=== PATIENT | female | born 1935 | race Caucasian/White ===

== ENCOUNTER 2017-08-23 09:45 | Outpatient (CLI) | payer MEDICARE ==
--- NOTE | 2017-08-23 12:58 | MRI ---
MRI OF THE LUMBAR SPINE WITHOUT CONTRAST: INDICATION: An 82-year-old female with an intervertebral disk disorder and radiculopathy. The patient is having chronic low back pain but with worsening left-sided radiculopathy. Pain radiates to the level of the left knee and foot. TECHNIQUE: Multiplanar, multisequence MR images were obtained of the lumbar spine without IV contrast. No radio graphic or MR comparisons are available. FINDINGS: There is prominent dextroscoliosis of the lumbar spine centered at L2. There is a prominent bony hem angioma within the L1 vertebral level. The conus is seen to terminate at approximately T12-L1. There is loss of the normal disk space and height at all lumbar intervertebral levels. The visualized retroperitoneum and paravertebral soft tissues appear within normal limits. At the L5-S1 level, there is severe right and moderate left facet joint degenerative change. There i s a broad-based disk bulge. There is no appreciable central canal or neural foraminal narrowing. At L4-5, there is an asymmetric to the right disk-osteophyte complex. The disk-osteophyte complex in addition to the facet osteoarthropathy and loss of disk space height at L4-5 induces severe right ne ural foraminal narrowing. At L3-4, there is a broad-based disk bulge with a superimposed central protrusion, ligamentum flavum hypertrophy, and facet hypertrophy inducing mild central canal narrowing. The broad-based disk bulge in addition to the facet hypertrophy induces severe left and mild right neural foraminal narrowing. At L2-3, there is an asymmetric to the left disk-osteophyte complex with facet hypertrophy and ligame ntum flavum hypertrophy present. Constellation of findings induces severe left and mild right neural foraminal narrowing. At L1-2, there is a disk-osteophyte complex that is asymmetric to the left which, in addition to the facet hypertrophy, induces severe left neural foraminal narrowing. At T12-L1, there is an asymmetric to the left disk-osteophyte complex inducing moderate left and mild right neural foraminal narrowing. IMPRESSION: 1. Severe left neural foraminal narrowing seen at L3-4, L2-3, and L1-2. 2. Severe right neural foraminal narrowing seen at L4-5. 3. Mild central canal narrowing at L4-5 and L3-4. POS: MERCEDEZ
== END 2017-08-23 09:46 | disposition home or self-care (01) ==
LOC: SCSMRI 09:45
PROVIDERS: ATTEND Specialist
DX: M51.16 Intervertebral disc disorders with radiculopathy, lumbar region (principal); M48.061 Spinal stenosis, lumbar region without neurogenic claudication
CPT/HCPCS: 72148

== ENCOUNTER 2018-05-23 09:53 | Outpatient (CLI) | payer MEDICARE | END 2018-05-23 09:54 | disposition home or self-care (01) | LOC: BICMAMMO 09:53 | PROVIDERS: ATTEND Family Medicine | DX: Z08 Encounter for follow-up examination after completed treatment for malignant neoplasm (principal); R92.1 Mammographic calcification found on diagnostic imaging of breast; Z85.3 Personal history of malignant neoplasm of breast | CPT/HCPCS: 77066; G0279 ==

== ENCOUNTER 2018-09-13 10:14 | Outpatient (CLI) | payer MEDICARE ==
--- NOTE | 2018-09-13 12:03 | RAD ---
LEFT HIP TWO VIEWS: History: Left hip pain. FINDINGS: Mild degenerative change with spurring from the femoral head. Femoral head contour is normally mainta ined. No fracture or acute abnormality. There is a rounded calcification overlying the pelvis consistent with a calcified fibroid uterus. IMPRESSION: Mild degenerative changes of the left hip. Small osteophytes from the femoral head noted. POS: BRIAN
== END 2018-09-13 10:15 | disposition home or self-care (01) ==
LOC: SCSRAD 10:14
PROVIDERS: ATTEND Family Medicine
DX: M25.552 Pain in left hip (principal); M16.12 Unilateral primary osteoarthritis, left hip; M25.752 Osteophyte, left hip
CPT/HCPCS: 36415; 80053; 80061; 84439; 84443; 84481; 85025

== ENCOUNTER 2019-08-09 12:46 | Outpatient (CLI) | payer MEDICARE ==
--- NOTE | 2019-08-09 14:08 | MRI ---
MRI CERVICAL SPINE WITHOUT CONTRAST: HISTORY: Cervical radiculopathy. Numbness involving both hands. COMPARISON: None. FINDINGS: Straightening of normal cervical lordosis. Appropriate T1 marrow signal intensity of the cervical rosy tebrae. Vertebral body height is maintained. No fracture. Visualized brain parenchyma, cervicomedullary junction, cervical cord and the upper thoracic cord hav e a normal size and signal intensity. Spondylolisthesis: C3-C4: 3.5 mm of anterolisthesis. C4-C5: 1.9 mm of anterolisthesis. C5-C6: 2.9 mm anterolisthesis. C7-T1: 3 mm of anterolisthesis. Incomplete segmentation of C2 and C3. C2-C3: No significant central canal stenosis or significant neural foraminal narrowing. C3-C4: No significant central canal stenosis or significant neural foraminal narrowing. Bilateral fac et hypertrophy is noted. C4-C5: Central disc protrusion with mild central canal stenosis. No significant central canal stenosi s. Mild bilateral foraminal narrowing. There is left facet hypertrophy. C5-C6: Broad-based disc bulge abuts the thecal sac. Mild central canal stenosis. Right neural foramen is patent. Moderate left foraminal narrowing due to uncovertebral and facet hypertrophy. C6-C7: Broad-based disc bulge abuts the thecal sac. Mild central canal stenosis. Mild bilateral nneo inal narrowing due to uncovertebral hypertrophy. C7-T1: No significant central canal stenosis. Mild bilateral neural foraminal narrowing. IMPRESSION: 1. Spondylolisthesis as above. 2. 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 3. Varying degrees of central canal stenosis and neural foraminal narrowing as detailed above. Transcribed Date/Time: 08/09/2019 2:19 PM
== END 2019-08-09 12:47 | disposition home or self-care (01) ==
LOC: SCSMRI 12:46
PROVIDERS: ATTEND Specialist
DX: M54.12 Radiculopathy, cervical region (principal); M43.16 Spondylolisthesis, lumbar region; M48.061 Spinal stenosis, lumbar region without neurogenic claudication; M48.03 Spinal stenosis, cervicothoracic region; M43.13 Spondylolisthesis, cervicothoracic region
CPT/HCPCS: 72141

== ENCOUNTER 2020-02-10 08:00 | Outpatient (CLI) | payer MEDICARE ==
--- NOTE | 2020-02-10 15:13 | MRI ---
MRI LEFT HIP: Date: 02-10-2020 Provided Clinical History: Pain FINDINGS: Evaluation is limited by patient motion. There is extensive full thickness articular cartilage loss involving the femoral/acetabular joint, wi th osteophyte formation seen. There is loss of the normal sphericity of the femoral head with somewha t curvilinear signal alteration within the superomedial aspects of the femoral head, compatible with sequellae of prior osteonecrosis and prior collapse. There is a small left hip joint effusion. There is increased signal intensity on fluid sensitive sequences involving the iliopsoas insertion at the lesser trochanter. There is low grade partial thickness undersurface tearing involving the glute us medius at the greater trochanteric insertion. The left common hamstring tendon origin demonstrates changes of tendinosis. Normal appearing acetabular labrum is not visualized. Regional marrow and muscular signal appear otherwise unremarkable. Degenerative changes of the lumbar spine are partially visualized. Fibroid involving the uterine fundus is seen. The courses of the region major neurovascular structures appear unremarkable. IMPRESSION: 1. 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 2. Low grade partial tearing of the iliopsoas tendon and left gluteus medius tendon at their insertio ns. POS: AH
== END 2020-02-10 08:01 | disposition home or self-care (01) ==
LOC: SCSMRI 08:00
PROVIDERS: ATTEND Specialist
DX: M25.552 Pain in left hip (principal); M16.12 Unilateral primary osteoarthritis, left hip; M87.9 Osteonecrosis, unspecified; M25.452 Effusion, left hip; S76.012A Strain of muscle, fascia and tendon of left hip, initial encounter

== ENCOUNTER 2020-02-12 13:44 | Outpatient (CLI) | payer MEDICARE ==
--- NOTE | 2020-02-12 15:09 | MMO ---
Bilateral MAMMO Bilat Screen [facility]TAM[facility]. CLINICAL HISTORY: Patient is 84 years old and is seen for screening. The patient has no family history of breast cancer. The patient has a history of malignant (generic) in the left breast at age 77. The patient has a history of Implants at age 78. VIEWS: The views performed were: bilateral craniocaudal with tomosynthesis and bilateral mediolateral oblique with tomosynthesis. FILMS COMPARED: The present examination has been compared to a prior imaging study performed at [facility] on 05/23/2018. This study has been interpreted with the assistance of computer-aided detection. MAMMOGRAM FINDINGS: There are scattered fibroglandular densities. There are vascular calcifications seen in the left breast. There are no suspicious masses, suspicious calcifications, or new areas of architectural distortion. IMPRESSION: A ROUTINE FOLLOW-UP MAMMOGRAM IN 1 YEAR IS RECOMMENDED. THE RESULTS OF THIS EXAM WERE SENT TO THE PATIENT. ACR BI-RADS Category 2 - Benign finding MAMMOGRAPHY NOTE: 1. A negative mammogram report should not delay a biopsy if a dominant of clinically suspicious mass is present. 2. Approximately 10% to 15% of breast cancers are not detected by mammography. 3. Adenosis and dense breasts may obscure an underlying neoplasm. Reported by: EL JACOBSEN MD Electonically Signed: [id number]
--- NOTE | 2020-02-12 16:25 | BD ---
Exam: DEXA Bone Density 02/12/20 HISTORY: 84-year-old postmenopausal female for screening. FINDINGS: Lumbar Spine: BMD (g/cm2) T-SCORE L1 1.254 2.4 L2 1.105 0.7 L3 1.085 0.0 L4 1.098 0.3 L1-L4 1.135 0.8 Femoral Neck: 0.692 01.4 Total Femur: 0.825 -1.0 Impression: Osteopenia. This patient has a ten year WHO fracture risk of a major osteoporotic fracture of 16% and hip fracture of 4.8%. POS: [facility]DI
== END 2020-02-12 13:45 | disposition home or self-care (01) ==
LOC: BICMAMMO 13:44
PROVIDERS: ATTEND Family Medicine
DX: Z12.31 Encounter for screening mammogram for malignant neoplasm of breast (principal); Z13.820 Encounter for screening for osteoporosis; Z78.0 Asymptomatic menopausal state; M85.859 Other specified disorders of bone density and structure, unspecified thigh; Z80.3 Family history of malignant neoplasm of breast; Z98.82 Breast implant status
CPT/HCPCS: 77063; 77067; 77080

== ENCOUNTER 2020-04-24 16:46 | Inpatient (IN) | payer MEDICARE, OTHER ==
--- NOTE | 2020-04-24 17:10 | PDOC.HHP ---
Hospitalist HPI - History of Present Illness Drug overdose History of Present Illness: Patient is a 84-year-old female with hypertension, anxiety and chronic pain syndrome was brought in to the emergency room with altered mentation. Patient was last seen normal yesterday evening. She was found unresponsive by her family around 1 PM with an empty bottle of temazepam and hydrocodone. Patient also had a suicide note. She was given Narcan and flumazenil in the emergency room. She briefly became less responsive after above medications. Later on due to worsening mentation she was placed on ventilator for airway protection. She also received cefepime and vancomycin in the emergency room. The above history was obtained from the ER chart and discussion with patient's son Vishnu. Patient is currently intubated and mechanically ventilated. PAST MEDICAL HISTORY: Hypertension, history of breast cancer, history of colon cancer, Hypothyroidism, degenerative joint disease, Obstructive sleep apnea, Chronic pain syndrome PAST SURGICAL HISTORY: Right knee replacement, colon cancer resection, surgery for breast cancer ALLERGIES: Codeine and [place] hallucination SOCIAL HISTORY: Patient is lives with her family. Has 3 sons. Non- smoker. Full code. Son Vishnu is the primary decision maker FAMILY HISTORY: Hypertension and stroke runs in her family. ED Course: VITAL SIGNS MonApr 24, 2020 14:40 KADI Valdivia, Jenn BP: 136/81, Pulse: 80, Resp: 25, Pain: 0, O2 sat: 98 on (2L Oxygen), Time: 2019 14:40. MEDICATION ADMINISTRATION SUMMARY MonApr 24, 2020 17:06 Drug Name Dose Ordered Route Status Time cefepime injection 2 g IV Piggy Back Acknowledged 16:46 04/24/2020 *vancomycin intravenous 20 mg/kg IV Piggy Back Acknowledged 16:46 04/24/2020 *rocuronium 100 mg IV Push Given 16:04 04/24/2020 *flumazenil 0.2 mg IV Push Given 15:54 04/24/2020 *flumazenil 0.1 mg IV Push Given 15:25 04/24/2020 *flumazenil 0.2 mg IV Push Given 14:20 04/24/2020 *sodium chloride 0.9 % intravenous 1000 mL IV Fluid Infusion Given 14:11 2019 Hospitalist ROS - Review of Systems ROS unobtainable: due to mental status - Medication Medications: levothyroxine oral MonApr 24, 2020 15:00 KADI Valdivia Skylar tablet : Strength - 150 mcg : ORAL Patient Dose: 150 mcg Oral once a day. celecoxib MonApr 24, 2020 15:00 KADI Valdivia, Jenn capsule : Strength - 100 mg : ORAL Patient Dose: 100 mg Oral once a day. losartan MonApr 24, 2020 15:01 KADI Valdivia Skylar tablet : Strength - 100 mg : ORAL Patient Dose: 100 mg Oral once a day. amLODIPine MonApr 24, 2020 15:02 KADI Valdivia Skylar tablet : Strength - 10 mg : ORAL Patient Dose: 10 mg Oral once a day. temazepam MonApr 24, 2020 15:03 KADI Valdivia, Jenn capsule : Strength - 30 mg : ORAL Patient Dose: 30 mg Oral once a day (at bedtime). [place] MonApr 24, 2020 15:04 KADI Valdivia Skylar tablet : Strength - 7.5 mg-325 mg : ORAL Patient Dose: 1 tab(s) Oral every 12 hours PRN. buPROPion HCl MonApr 24, 2020 15:07 KADI Valdivia Skylar tablet sustained-release 12 hr : Strength - 200 mg : ORAL Patient Dose: 200 mg Oral 2 times a day (before meals). simvastatin MonApr 24, 2020 15:07 KADI Valdivia Skylar tablet : Strength - 20 mg : ORAL Patient Dose: 20 mg Oral once a day (at bedtime). - Exam General Appearance: NAD General - other findings: Intubated on mechanical ventilation Eye: PERRL, anicteric sclera ENT: normocephalic atraumatic, dry oral mucosa Neck: supple, no JVD Heart: RRR, no gallops, no rubs, normal peripheral pulses Respiratory: no wheezes, no rales, no ronchi, normal chest expansion Respiratory - other findings: Intubated Gastrointestinal: soft, non-distended, no guarding, no rigidity Extremities: no cyanosis, no clubbing Psychiatric - other findings: Neuro/psych exam limited due to current mentation Hospitalist Results - Labs Lab results: Laboratory Tests 09/30/19 04/24/20 04/24/20 10:12 14:38 14:38 WBC Hgb Hct Plt Count PT INR APTT Sodium 140 Potassium 3.7 Chloride 106 Carbon Dioxide 19 L BUN 34 H Creatinine 1.28 H 2.35 H Creatine Kinase 1123 H CK-MB (CK-2) Troponin I Salicylates Less than 8.0 L Acetaminophen 12.0 Plasma Alcohol Less than 10 04/24/20 04/24/20 04/24/20 14:38 14:38 14:53 WBC 8.5 Hgb 12.8 Hct 39.9 Plt Count 232 PT 12.3 H INR 1.2 APTT 30.3 Sodium Potassium Chloride Carbon Dioxide BUN Creatinine Creatine Kinase CK-MB (CK-2) 9.2 H* Troponin I 0.034 H Salicylates Acetaminophen Plasma Alcohol Laboratory Tests 04/24/20 19:31 Bicarbonate Actual 17.9 L ABG pH 7.52 H ABG pCO2 22.5 L* - EKG Interpretation EKG: LAURA KUNZ - reviewed by me - Radiology Interpretation Chest x-ray Status: image reviewed by me Additional Comment: FINDINGS: S-shaped scoliosis. Severe degenerative disc disease at multiple levels in lumbar spine. Shallow inspiration resulting in hypoinflated lungs makes this a limited study. Shaggy, indistinct bi lateral hemidiaphragmatic borders. Diffusely prominent interstitial markings. Cardiac silhouette partially obscured. No consolidation at lung apices. No pneumothorax. Possible cardiomegaly. IMPRESSION: 1) Limited study. 2) bilateral pleural effusions and/or basilar lower lobe atelectasis versus infiltrates. 3) severe lumbar spondylosis plus S-shaped scoliosis Hospitalist H&P A/P - Plan Plan: Acute respiratory failure/toxic metabolic encephalopathy due to drug overdose Suicidal attempt Rhabdomyolysis Degenerative joint disease Acute kidney injury on CKD stage III Metabolic acidosis Hypertension Chronic pain syndrome History of breast and colon cancer Plan: Patient will be monitored in the intensive care unit, continue mechanical ventilation. Critical care consultation. Continue IV fluids. Monitor troponins. Repeat acetaminophen level. Urine drug screen pending at this time. Recheck labs in a.m. Antibiotics for now. Cultures were drawn at the emergency room. Verify home medications. Ventilation sedation protocol. Recheck ABGs and chest x-ray in a.m. suicide precautions. Plan of care was discussed with patient's son over the phone he stated understanding.
[2020-04-24] MEDS ORDERED: Acetaminophen 650 MG Suppository PR PRN (19:25)
[2020-04-24] MEDS ORDERED: Senokot S 8.6-50 MG TAB PO PRN (19:25)
[2020-04-24] MEDS ORDERED: Ondansetron ODT 4 MG TAB PO PRN (19:25)
[2020-04-24] MEDS ORDERED: Electrolyte Replacement Protocol IVPB SCH (19:25)
[2020-04-24] MEDS ORDERED: Ondansetron PF 4 MG/2 ML Vial IVP PRN (19:25)
[2020-04-24] MEDS ORDERED: Acetaminophen 650 MG/20.3 ML UDCUP PO PRN (19:25)
[2020-04-24] MEDS ORDERED: Labetalol HCl 100 MG/20 ML VIAL SLOW IVP PRN (19:26)
[2020-04-24 19:43] LABS: Actual Bicarbonate (HCO3a) 17.9 mEq/L (22-28); Calcium, Ionized (arterial) 1.09 mmol/L (1.12-1.30); Carboxyhemoglobin (COHb) 0.3 gm% (0.0-3.0); Hemoglobin (Hb) 13.9 g/dL (12.0-16.0); O2 Tension (PaO2), arterial 84.1 mmHg (> 60.0); Potassium - ABG Lab 3.68 mmol/L (3.70-5.30); pH, Arterial 7.52 (7.35-7.45)
[2020-04-24 19:44] LABS: ALV-art Gradient 244.275 (0-20); CO2 Tension 22.5 mmHg (35.0-45.0); Puncture Site LBA
[2020-04-24 20:36] LABS: Acetaminophen Less than 6.0 mcg/mL (10.0-30.0)
[2020-04-24 20:40] LABS: Troponin I 0.038 ng/mL (< 0.028)
[2020-04-24] MEDS: Sodium Chloride 0.9% 1,000 ML IV SCH (20:52)
[2020-04-24] MEDS ORDERED: Famotidine/PF 20 mg/2ml Vial SLOW IVP SCH (21:00)
[2020-04-24] MEDS ORDERED: Famotidine 40 MG/5 ML Oral Suspension PER TUBE SCH (21:00)
[2020-04-25 03:54] LABS: Band 4 % (5-11); Hemoglobin 13.2 g/dL (12.0-16.0); Lymphocytes 6 % (21-51); MDiff Complete? YES; Mean Corpuscular HGB CONC 33.9 g/dL (32.0-36.0); Mean Corpuscular Hemoglobin 32.8 pg (27.0-31.0); Mean Corpuscular Volume 96.7 fL (78.0-98.0); Mean Platelet Volume 8.9 fL (7.4-10.4); Monocytes 7 % (0-10); Neutrophil 82 % (42-75); Platelet Count 212 thou/uL (130-400); Platelet Morphology Comment Appears Adequate; RBC Distribution Width 12.2 % (11.5-14.5); RBC Morphology Normal; Reactive Lymphocytes 1 % (0-10); Red Blood Cell (RBC) Count 4.01 mill/uL (4.20-5.40); White Blood Cell (WBC) Count 9.5 thou/uL (4.8-10.8)
[2020-04-25 03:57] LABS: Phosphorus 3.2 mg/dL (2.3-4.7)
[2020-04-25 04:04] LABS: Troponin I 0.055 ng/mL (< 0.028)
[2020-04-25] MEDS: Sodium Chloride 0.9% 1,000 ML IV SCH ×3 (04:04→16:11)
[2020-04-25 04:05] LABS: ALT (SGPT) 26 U/L (8-55); AST (SGOT) 54 U/L (5-34); Albumin 3.2 g/dL (3.4-4.8); Alkaline Phosphatase 90 U/L (40-110); Anion Gap 13 mmol/L (10-20); BUN (Urea Nitrogen) 29 mg/dL (9.8-20.1); Bilirubin, Total 0.5 mg/dL (0.2-1.2); CK (CPK) 2465 U/L (29-168); Calc. Creatinine Clearance 37 mL/min (70-130); Calcium 7.9 mg/dL (7.8-10.44); Carbon Dioxide 18 mmol/L (23-31); Chloride 111 mmol/L (98-107); Estimated GFR-MDRD 36; Globulin 2.2 g/dL (2.4-3.5); Glucose 84 mg/dL (83-110); Magnesium 1.7 mg/dL (1.6-2.6); Potassium 3.4 mmol/L (3.5-5.1); Protein, Total 5.4 g/dL (6.0-8.3); Sodium 139 mmol/L (136-145)
[2020-04-25] MEDS ORDERED: Potassium Chloride 40 MEQ in Sodium Chloride 0.9% 250 ML 250 ML IVPB SCH (05:15)
[2020-04-25 07:16] LABS: Actual Bicarbonate (HCO3a) 14.7 mEq/L (22-28); Base Excess (BEa) -7.1 mEq/L (-2.0 to +3.0); Calcium, Ionized (arterial) 1.13 mmol/L (1.12-1.30); Carboxyhemoglobin (COHb) 0.7 gm% (0.0-3.0); Hemoglobin (Hb) 13.7 g/dL (12.0-16.0); O2 Tension (PaO2), arterial 73.5 mmHg (> 60.0); Potassium - ABG Lab 4.16 mmol/L (3.70-5.30); pH, Arterial 7.45 (7.35-7.45)
[2020-04-25 07:17] LABS: CO2 Tension 21.9 mmHg (35.0-45.0)
[2020-04-25 07:18] LABS: ALV-art Gradient 184.325 (0-20); Puncture Site RRA
--- NOTE | 2020-04-25 07:46 | RAD ---
CHEST 1 VIEW: INDICATION: History of intubation COMPARISON: Prior exam dated 04/24/2020. IMPRESSION: Cardiomegaly, pulmonary vascular congestion, and small bilateral pleural effusions persist. ET tube and gastric catheter are unchanged. No pneumothorax is evident. POS: BH
--- NOTE | 2020-04-25 08:57 | CON ---
DATE OF CONSULTATION: 04/25/2020 35 minutes critical care time. REASON FOR CONSULTATION: Respiratory failure related to an overdose. HISTORY OF THE PRESENT ILLNESS: I am being consulted by the hospitalist group to see this 84-year-old female, who apparently took excessive amounts of temazepam and hydrocodone in a suicide attempt. There is a suicide note stating the patient was depressed and felt like a burden to her family and took pills with the intention of not being resuscitated. She was found at home. She was brought in intubated, placed on mechanical ventilation. She is now waking to follow some commands. PAST MEDICAL HISTORY: 1. Hypertension. 2. Breast cancer. 3. Colon cancer. 4. Hypothyroidism. 5. Degenerative joint disease. 6. CLAUDIO. 7. Chronic pain. PAST SURGICAL HISTORY: 1. Right knee replacement. 2. Colon cancer resection. 3. Breast cancer surgery. ALLERGIES: 1. CODEINE. 2. TALWIN. SOCIAL HISTORY: Nonsmoker. . Lives with her son. FAMILY MEDICAL HISTORY: Remarkable for hypertension, stroke. REVIEW OF SYSTEMS: Cannot be obtained secondary to altered mental status. MEDICATIONS: These are available for review under the home medications section in the chart. Of note, she is on 1. Bupropion. 2. Simvastatin. 3. Losartan. 4. Celebrex. 5. Norvasc. 6. Restoril. 7. Synthroid. 8. [place]. PHYSICAL EXAMINATION: VITAL SIGNS: Temperature 97.8, pulse 103, blood pressure 131/70, respiratory rate 18, O2 saturation 95%. GENERAL: She is arousable on mechanical ventilation. She falls asleep quite quickly though. HEENT: Pupils 4 mm and reactive and equal. Sclerae anicteric. Oropharynx clear. NECK: No adenopathy or JVD. LUNGS: Clear to auscultation. No wheezing. CARDIAC: S1, S2. Regular without murmur. ABDOMEN: Obese, soft, nontender. EXTREMITIES: No clubbing, cyanosis, or edema. LABORATORY DATA: ABG: PH 7.45, pCO2 of 21, PO2 of 73 on SIMV rate 18, tidal volume 500, PEEP 5, pressure 10, and FiO2 of 40%. Sodium 139, potassium 3.4, chloride 111, CO2 of 18, BUN 29, creatinine 1.4, glucose 84. CPK 2465. White blood cell count 9.5, hematocrit 38.8, and platelet count 212. Chest x-ray shows bilateral small effusions. ASSESSMENT: 1. Overdose, intentional. 2. Suicide attempt. 3. Acute respiratory failure secondary to respiratory depression from ingested medications. 4. Rhabdomyolysis. PLAN: 1. Continue hydration. 2. Trend CPKs. 3. Probably extubate when some of the medications have worn off. I have placed her on CPAP mode. 4. Agree with Pepcid and Lovenox. 5. GI prophylaxis and DVT prophylaxis respectively. We will follow with you. Job ID: [id number]
[2020-04-25] MEDS: Enoxaparin Sodium 30 MG/0.3 ML SYRINGE SC SCH (10:07)
[2020-04-25 14:07] LABS: SARS-CoV-2 MS2 Positive; SARS-CoV-2 N Gene Negative; SARS-CoV-2 S Gene Negative; SARS-CoV-2 by NAA Not Detected (NotDetected); SARS-CoV-2 orf1ab Negative
[2020-04-25] MEDS: Famotidine/PF 20 mg/2ml Vial SLOW IVP SCH (19:13)
[2020-04-25] MEDS: Famotidine 40 MG/5 ML Oral Suspension PER TUBE SCH (19:13)
[2020-04-25] MEDS: D5 1/2 NS w/20 mEq KCL 1,000 ML IV SCH (22:45)
[2020-04-25] MEDS: Acetaminophen 650 MG/20.3 ML UDCUP PO PRN (22:45)
[2020-04-25] MEDS ORDERED: Morphine 2 MG/ML VIAL SLOW IVP PRN (23:14)
[2020-04-25] MEDS ORDERED: fentaNYL Citrate/PF 2,000 MCG in Sodium Chloride 0.9% 60 ML IV SCH (23:14)
[2020-04-25] MEDS ORDERED: Propofol 1,000 MG/100 ML VIAL IV PRN (23:14)
[2020-04-25] MEDS ORDERED: Propofol BOLUS 1,000 MG/100 ML VIAL IV PRN (23:14)
[2020-04-25] MEDS ORDERED: DISCONTINUE PREVIOUS NARCOTIC PAIN MEDICATIONS AND BENZODIAZEPINES FS SCH (23:14)
[2020-04-25] MEDS ORDERED: Lorazepam 2 MG/ML VIAL SLOW IVP PRN (23:14)
[2020-04-25] MEDS ORDERED: Fentanyl BOLUS 250 ML IVPB PRN (23:14)
--- NOTE | 2020-04-25 23:23 | PDOC.HOSPP ---
- Subjective Encounter Date: 04/25/20 Encounter Time: 12:30 Subjective: Patient seen and examined for respiratory failure due to suicidal drug overdose. Remains on mechanical ventilation. Currently on CPAP mode. Mentation improving. - Objective Vital Signs & Weight: Vital Signs (12 hours) Temp Pulse Resp BP Pulse Ox 04/25/20 22:32 118 H 160/99 H 04/25/20 22:00 24 H 04/25/20 20:00 98.3 F 22 H 99 04/25/20 18:39 112 H 140/76 04/25/20 18:00 20 04/25/20 16:00 99.5 F 19 04/25/20 14:14 108 H 164/92 H 04/25/20 14:00 26 H 04/25/20 12:00 99.7 F H 19 Weight Admit Weight 168 lb Weight 168 lb 6.931 oz Most Recent Monitor Data Heart Rate from ECG 116 NIBP 165/90 NIBP BP-Mean 115 Respiration from ECG 24 SpO2 96 I&O: 04/24/20 04/25/20 04/26/20 06:59 06:59 06:59 Intake Total 1448 1264 Output Total 695 1100 Balance 753 164 Result Diagrams: 04/26/20 03:24 04/26/20 03:24 Additional Labs: Accuchecks 04/25/20 04/25/20 04/25/20 19:01 12:28 02:00 POC Glucose 93 97 66 L Laboratory Tests 04/24/20 04/25/20 04/25/20 20:04 03:12 07:15 ABG pH 7.45 ABG pCO2 21.9 L* ABG pO2 73.5 H Potassium 3.4 L BUN 29 H Creatinine 1.41 H Creatine Kinase 2465 H Acetaminophen Less than 6.0 L Radiology Reviewed by me: Yes (Chest x-ray no new infiltrate) EKG Reviewed by me: Yes (Sinus rhythm on telemetry) Hospitalist ROS - Review of Systems ROS unobtainable: due to endotracheal tube - Medication Medications: Active Medications Generic Name Dose Route Start Last Admin Trade Name Freq PRN Reason Stop Dose Admin Acetaminophen 650 mg 04/24/20 19:25 04/25/20 22:45 Tylenol Elixir PO 650 mg Q4H PRN Administration Headache/Fever/Mild Pain (1-3) Enoxaparin Sodium 30 mg 04/25/20 09:00 04/25/20 10:07 Lovenox SC 30 mg 0900 VIV Administration Famotidine 20 mg 04/25/20 21:00 04/25/20 19:13 Pepcid SLOW IVP 20 mg QPM VIV Administration Famotidine 20 mg 04/25/20 21:00 04/25/20 19:13 Pepcid PER TUBE Not Given QPM VIV Potassium Chloride/Dextrose/Sod Cl 1,000 mls @ 125 mls/hr 04/25/20 19:30 22:45 D5 1/2 Ns W/20 Meq Kcl IV 1,000 mls .Q8H VIV Administration Fentanyl Citrate 2,000 mcg/ 100 mls @ 0 mls/hr 04/25/20 23:14 04/25/20 23:20 Sodium Chloride IV 05/25/20 23:14 100 mls INF VIV Administration Protocol Per Protocol - Exam General Appearance: NAD General - other findings: On mechanical ventilation Heart: RRR, no gallops, no rubs, normal peripheral pulses Respiratory: no wheezes, no rales, normal chest expansion, rhonchi Gastrointestinal: soft, non-distended, no guarding, no rigidity Extremities: no cyanosis, no clubbing Psychiatric - other findings: Neuro/psych exam limited due to current mentation Hosp A/P - Plan DVT proph w/SCDs Acute respiratory failure/toxic metabolic encephalopathy due to drug overdose Suicidal attempt Rhabdomyolysis Degenerative joint disease Acute kidney injury on CKD stage III Metabolic acidosis Hypertension Chronic pain syndrome History of breast and colon cancer Plan: 04/25 Patient on mechanical ventilation/CPAP mode. Change IV fluid to D5 half NS with 20 of potassium. Replace electrolytes. Renal function improving. CK today was 2400. Continue DVT prophylaxis and GI prophylaxis. Continue suicide precautions. Continue restraints per protocol. Critical care input appreciated.
[2020-04-26] MEDS: D5 1/2 NS w/20 mEq KCL 1,000 ML IV SCH ×2 (03:48→10:49)
[2020-04-26 03:56] LABS: ALT (SGPT) 21 U/L (8-55); AST (SGOT) 32 U/L (5-34); Albumin 2.9 g/dL (3.4-4.8); Alkaline Phosphatase 85 U/L (40-110); Anion Gap 9 mmol/L (10-20); BUN (Urea Nitrogen) 21 mg/dL (9.8-20.1); Bilirubin, Total 0.5 mg/dL (0.2-1.2); CK (CPK) 938 U/L (29-168); Calc. Creatinine Clearance 48 mL/min (70-130); Calcium 7.9 mg/dL (7.8-10.44); Carbon Dioxide 23 mmol/L (23-31); Chloride 113 mmol/L (98-107); Estimated GFR-MDRD 48; Globulin 2.3 g/dL (2.4-3.5); Glucose 135 mg/dL (83-110); Magnesium 1.7 mg/dL (1.6-2.6); Potassium 3.8 mmol/L (3.5-5.1); Protein, Total 5.2 g/dL (6.0-8.3); Sodium 141 mmol/L (136-145)
[2020-04-26 04:17] LABS: Band 2 % (5-11); Eosinophils 1 % (0-10); Hemoglobin 12.4 g/dL (12.0-16.0); Lymphocytes 9 % (21-51); MDiff Complete? YES; Mean Corpuscular HGB CONC 33.7 g/dL (32.0-36.0); Mean Corpuscular Hemoglobin 33.4 pg (27.0-31.0); Mean Platelet Volume 8.8 fL (7.4-10.4); Monocytes 16 % (0-10); Neutrophil 69 % (42-75); Platelet Count 190 thou/uL (130-400); RBC Distribution Width 12.4 % (11.5-14.5); Reactive Lymphocytes 3 % (0-10); Red Blood Cell (RBC) Count 3.73 mill/uL (4.20-5.40); White Blood Cell (WBC) Count 9.4 thou/uL (4.8-10.8)
--- NOTE | 2020-04-26 06:30 | RAD ---
CHEST ONE VIEW: INDICATIONS: History of daily CCU examination, on ventilation. COMPARISON: Prior exam dated 04/25/2020. IMPRESSION: Cardiomegaly with mild pulmonary vascular congestion and bilateral pleural effusions persist. Bibasil ar air space disease is similar appearing, likely related to some atelectasis. No pneumothorax is nay dent. Endotracheal tube and gastric catheter are unchanged. POS: BH
[2020-04-26] MEDS ORDERED: Magnesium 2 GM/50 ML 2 GM in Premix Bag 1 BAG IVPB SCH (06:45)
[2020-04-26 07:04] LABS: Actual Bicarbonate (HCO3a) 20.3 mEq/L (22-28); Base Excess (BEa) -3.9 mEq/L (-2.0 to +3.0); CO2 Tension 34.6 mmHg (35.0-45.0); Carboxyhemoglobin (COHb) 0.2 gm% (0.0-3.0); Hemoglobin (Hb) 12.8 g/dL (12.0-16.0); O2 Tension (PaO2), arterial 91.1 mmHg (> 60.0); Potassium - ABG Lab 3.76 mmol/L (3.70-5.30); pH, Arterial 7.39 (7.35-7.45)
[2020-04-26 07:08] LABS: Puncture Site RRA
[2020-04-26] MEDS: Enoxaparin Sodium 30 MG/0.3 ML SYRINGE SC SCH (08:51)
--- NOTE | 2020-04-26 10:31 | PRG ---
DATE OF SERVICE: 04/26/2020 Thirty five minutes critical care time. SUBJECTIVE: The patient remains intubated, on mechanical ventilation. She is awake, follows commands without limitation. PHYSICAL EXAMINATION: VITAL SIGNS: Temperature 99.2, pulse 103, blood pressure 153/87, and O2 saturations 97%. HEENT: Unremarkable. NECK: No adenopathy or JVD. LUNGS: Coarse breath sounds. CARDIAC: S1 and S2, regular. ABDOMEN: Soft. EXTREMITIES: No edema. DIAGNOSTIC STUDIES: Her x-ray shows small amount of pleural fluid bilaterally. LABORATORY DATA: Sodium 141, potassium 3.8, chloride 113, CO2 of 23, BUN 21, creatinine 1.1, glucose 135. White count 9.4, hematocrit 36.9, and platelet count 190. PH of 7.39, pCO2 of 34, PO2 of 91. ASSESSMENT: 1. Status post overdose with suicide attempts. 2. Acute respiratory failure secondary to respiratory depression from ingested medications. 3. Mild rhabdomyolysis. PLAN: 1. Continue hydration, but given the x-ray appearance, I will decrease the rate. 2. Extubate. 3. Hopefully can get a psychiatric disposition tomorrow. Job ID: [id number]
--- NOTE | 2020-04-26 13:05 | PDOC.HOSPP ---
- Subjective Encounter Date: 04/26/20 Encounter Time: 12:30 Subjective: Patient seen and examined for respiratory failure/overdose. Extubated today. Mentation improving. She is following commands intermittently. - Objective Vital Signs & Weight: Vital Signs (12 hours) Temp Pulse Resp BP Pulse Ox 04/26/20 12:00 98.3 F 96 04/26/20 10:15 111 H 20 94 L 04/26/20 10:09 94 L 04/26/20 08:00 20 96 04/26/20 07:00 99.2 F 04/26/20 06:54 94 147/85 H 04/26/20 06:00 17 04/26/20 05:00 98.5 F 04/26/20 04:00 18 04/26/20 02:26 92 125/73 04/26/20 02:00 18 Weight Admit Weight 168 lb Weight 2.727 oz Most Recent Monitor Data Heart Rate from ECG 111 NIBP 159/84 NIBP BP-Mean 109 Respiration from ECG 29 SpO2 96 I&O: 04/25/20 04/26/20 04/27/20 06:59 06:59 06:59 Intake Total 1448 2703 Output Total 695 1390 1055 Balance 753 1313 -1055 Result Diagrams: 04/26/20 03:24 04/26/20 03:24 Additional Labs: Accuchecks 04/26/20 04/26/20 04/25/20 12:53 01:21 19:01 POC Glucose 113 H 128 H 93 EKG Reviewed by me: Yes (Sinus rhythm on telemetry) Hospitalist ROS - Review of Systems ROS unobtainable: due to mental status - Medication Medications: Active Medications Generic Name Dose Route Start Last Admin Trade Name Freq PRN Reason Stop Dose Admin Acetaminophen 650 mg 04/24/20 19:25 04/25/20 22:45 Tylenol Elixir PO 650 mg Q4H PRN Administration Headache/Fever/Mild Pain (1-3) Enoxaparin Sodium 30 mg 04/25/20 09:00 04/26/20 08:51 Lovenox SC 30 mg 0900 VIV Administration Famotidine 20 mg 04/25/20 21:00 04/25/20 19:13 Pepcid SLOW IVP 20 mg QPM VIV Administration Famotidine 20 mg 04/25/20 21:00 04/25/20 19:13 Pepcid PER TUBE Not Given QPM VIV Fentanyl Citrate 2,000 mcg/ 100 mls @ 0 mls/hr 04/25/20 23:14 04/25/20 23:20 Sodium Chloride IV 05/25/20 23:14 100 mls INF VIV Administration Protocol Per Protocol Potassium Chloride/Dextrose/Sod Cl 1,000 mls @ 70 mls/hr 04/26/20 10:09 04/26 10:49 D5 1/2 Ns W/20 Meq Kcl IV Not Given .[id number] VIV - Exam General Appearance: NAD Neck: supple, no JVD Heart: RRR, no gallops Respiratory: no wheezes, no ronchi Gastrointestinal: soft, non-distended Extremities: no cyanosis Psychiatric - other findings: Exam limited due to current mentation Hosp A/P - Plan DVT proph w/lovenox, DVT proph w/SCDs Acute respiratory failure/toxic metabolic encephalopathy due to drug overdose Suicidal attempt Rhabdomyolysis Hypomagnesemia Degenerative joint disease Acute kidney injury on CKD stage III Metabolic acidosis Hypertension Chronic pain syndrome History of breast and colon cancer Plan: 04/26 Patient extubated today. IV fluids reduced to 70 mL. Replace magnesium. CK in 800s today. Renal function improving. Continue DVT and GI prophylaxis. Possible transfer to [facility] later today if stable. Continue suicide precautions. [facility] evaluation in a.m. if stable. Plan discussed with the son Vishnu over the phone. 04/25 Patient on mechanical ventilation/CPAP mode. Change IV fluid to D5 half NS with 20 of potassium. Replace electrolytes. Renal function improving. CK today was 2400. Continue DVT prophylaxis and GI prophylaxis. Continue suicide precautions. Continue restraints per protocol. Critical care input appreciated.
[2020-04-26] MEDS ORDERED: DC Sedation Protocol FS ONE (13:07)
[2020-04-26] MEDS: Famotidine/PF 20 mg/2ml Vial SLOW IVP SCH (20:47)
[2020-04-26] MEDS: Famotidine 40 MG/5 ML Oral Suspension PER TUBE SCH (21:00)
[2020-04-27] MEDS: D5 1/2 NS w/20 mEq KCL 1,000 ML IV SCH (00:26)
[2020-04-27 03:48] LABS: ALT (SGPT) 30 U/L (8-55); AST (SGOT) 50 U/L (5-34); Albumin 3.1 g/dL (3.4-4.8); Alkaline Phosphatase 94 U/L (40-110); Anion Gap 14 mmol/L (10-20); BUN (Urea Nitrogen) 10 mg/dL (9.8-20.1); Bilirubin, Total 0.4 mg/dL (0.2-1.2); CK (CPK) 2084 U/L (29-168); Calc. Creatinine Clearance 0 mL/min (70-130); Calcium 8.3 mg/dL (7.8-10.44); Carbon Dioxide 22 mmol/L (23-31); Chloride 106 mmol/L (98-107); Estimated GFR-MDRD 72; Globulin 2.7 g/dL (2.4-3.5); Glucose 131 mg/dL (83-110); Magnesium 1.6 mg/dL (1.6-2.6); Potassium 3.5 mmol/L (3.5-5.1); Protein, Total 5.8 g/dL (6.0-8.3); Sodium 138 mmol/L (136-145)
[2020-04-27 03:58] LABS: Band 2 % (5-11); Hemoglobin 12.6 g/dL (12.0-16.0); Lymphocytes 15 % (21-51); MDiff Complete? YES; Mean Corpuscular HGB CONC 32.4 g/dL (32.0-36.0); Mean Corpuscular Volume 98.6 fL (78.0-98.0); Mean Platelet Volume 8.7 fL (7.4-10.4); Monocytes 11 % (0-10); Neutrophil 72 % (42-75); Platelet Count 185 thou/uL (130-400); Platelet Morphology Comment Appears Adequate; RBC Distribution Width 12.2 % (11.5-14.5); RBC Morphology Normal; Red Blood Cell (RBC) Count 3.93 mill/uL (4.20-5.40); White Blood Cell (WBC) Count 10.7 thou/uL (4.8-10.8)
[2020-04-27] MEDS ORDERED: Magnesium 2 GM/50 ML 2 GM in Premix Bag 1 BAG IVPB SCH (06:30)
[2020-04-27] MEDS: Sodium Chloride 0.45% 1,000 ML IV SCH ×2 (08:00→16:57)
[2020-04-27] MEDS: Potassium Chloride 20 MEQ in Premix Bag 1 BAG IVPB SCH ×2 (08:00→09:22)
[2020-04-27] MEDS: Enoxaparin Sodium 30 MG/0.3 ML SYRINGE SC SCH (08:00)
--- NOTE | 2020-04-27 08:12 | PRG ---
DATE OF SERVICE: 04/27/2020 SUBJECTIVE: The patient is doing well postextubation. Denies any further suicidal ideation or depression. OBJECTIVE: VITAL SIGNS: Temperature 98.6, pulse 101, blood pressure 142/85, and O2 saturation 99%. HEENT: Unremarkable. NECK: No JVD. LUNGS: Clear. CARDIAC: S1 and S2. Regular. ABDOMEN: Soft. EXTREMITIES: No edema. LABORATORY DATA: Sodium 138, potassium 3.5, BUN 10, creatinine 0.7, glucose 131, and CPK 2084. White blood cell count 10.7, hematocrit 38.8, and platelet count 185. ASSESSMENT: 1. Status post polysubstance overdose and a suicide attempt. 2. Status post acute respiratory failure, requiring mechanical ventilation. 3. Mild rhabdomyolysis. PLAN: 1. Transfer out to the floor. Continue hydration for rhabdomyolysis. 2. Hopefully, able to make a psychiatric disposition soon. Job ID: [id number]
[2020-04-27] MEDS: Potassium Chloride 20 MEQ TAB PO SCH ×2 (12:30→14:46)
--- NOTE | 2020-04-27 13:36 | PDOC.HOSPP ---
- Subjective Encounter Date: 04/27/20 Encounter Time: 10:00 Subjective: Patient seen for follow-up regarding acute respiratory failure. Extubated yesterday, feels better today. - Objective Vital Signs & Weight: Vital Signs (12 hours) Temp Pulse Resp BP Pulse Ox 04/27/20 12:09 99 20 162/87 H 04/27/20 09:35 97.5 F L 110 H 18 151/80 H 97 04/27/20 08:00 98.8 F 95 04/27/20 02:00 98.6 F Weight Admit Weight 168 lb Weight 172 lb 9.951 oz Most Recent Monitor Data Heart Rate from ECG 112 NIBP 161/84 NIBP BP-Mean 109 Respiration from ECG 10 SpO2 98 I&O: 04/26/20 04/27/20 04/28/20 06:59 06:59 06:59 Intake Total 2703 501.8 492 Output Total 1390 2745 700 Balance 1313 -2243.2 -208 Result Diagrams: 04/27/20 03:17 04/27/20 03:17 Additional Labs: Accuchecks 04/26/20 04/26/20 23:45 18:33 POC Glucose 135 H 157 H Labs and MAR were reviewed by me EKG Reviewed by me: Yes (Telemetry: Normal sinus rhythm) Hospitalist ROS - Review of Systems Cardiovascular: denies: chest pain, palpitations, orthopnea, paroxysmal noc. dyspnea, edema, light headedness Gastrointestinal: denies: nausea, vomiting, abdominal pain, diarrhea, constipation, melena, hematochezia - Medication Medications: Active Medications Generic Name Dose Route Start Last Admin Trade Name Rockyq PRN Reason Stop Dose Admin Acetaminophen 650 mg 04/24/20 19:25 04/25/20 22:45 Tylenol Elixir PO 650 mg Q4H PRN Administration Headache/Fever/Mild Pain (1-3) Enoxaparin Sodium 30 mg 04/25/20 09:00 04/27/20 08:00 Lovenox SC 30 mg 0900 VIV Administration Sodium Chloride 1,000 mls @ 100 mls/hr 04/27/20 07:45 04/27/20 08:00 1/2 Normal Saline IV 1,000 mls .Q10H VIV Administration Labetalol HCl 10 mg 04/24/20 19:26 04/26/20 21:22 Normodyne SLOW IVP 10 mg Q4H PRN Administration Systolic BP > 180 - Exam General - other findings: Obese Eye: anicteric sclera ENT: moist mucosa Neck: supple Heart: RRR Respiratory: CTAB Gastrointestinal: soft, non-tender Extremities: no clubbing Psychiatric: normal affect, normal behavior, A&O x 3 Hosp A/P - Plan Assessment: Acute respiratory failure/toxic metabolic encephalopathy due to drug overdose Suicidal attempt Rhabdomyolysis Hypomagnesemia Degenerative joint disease Acute kidney injury on CKD stage III Metabolic acidosis Hypertension Chronic pain syndrome History of breast and colon cancer Plan: Patient was extubated yesterday, oriented x3 today. CK is worse. Continue IV fluids for rhabdomyolysis and recheck CK level in the morning. Continue suicide precautions. Transfer to medical floor today.
[2020-04-28] MEDS: Sodium Chloride 0.45% 1,000 ML IV SCH ×4 (01:56→20:44)
[2020-04-28] MEDS: Acetaminophen 650 MG/20.3 ML UDCUP PO PRN ×2 (02:15→08:47)
[2020-04-28] MEDS ORDERED: Loperamide HCl 2 MG CAP PO SCH (05:15)
[2020-04-28 07:42] LABS: Anion Gap 12 mmol/L (10-20); BUN (Urea Nitrogen) 10 mg/dL (9.8-20.1); CK (CPK) 1172 U/L (29-168); Calc. Creatinine Clearance 73 mL/min (70-130); Calcium 8.5 mg/dL (7.8-10.44); Carbon Dioxide 25 mmol/L (23-31); Chloride 105 mmol/L (98-107); Estimated GFR-MDRD 76; Glucose 99 mg/dL (83-110); Potassium 3.3 mmol/L (3.5-5.1); Sodium 139 mmol/L (136-145)
[2020-04-28] MEDS ORDERED: Potassium Chloride 20 MEQ TAB PO SCH (08:30)
[2020-04-28] MEDS: Enoxaparin Sodium 30 MG/0.3 ML SYRINGE SC SCH (08:43)
[2020-04-28] MEDS: Loperamide HCl 2 MG CAP PO PRN ×2 (09:53→16:58)
--- NOTE | 2020-04-28 11:38 | PDOC.HOSPP ---
- Subjective Encounter Date: 04/28/20 Encounter Time: 08:30 Subjective: Patient seen for follow-up for drug overdose. She reports feeling better. - Objective Vital Signs & Weight: Vital Signs (12 hours) Temp Pulse Resp BP Pulse Ox 04/28/20 07:31 98.4 F 94 16 134/88 96 04/28/20 04:00 98.0 F 96 20 174/84 H 95 04/28/20 00:00 97.9 F 106 H 20 141/80 H 94 L Weight Admit Weight 168 lb Weight 171 lb 11.489 oz Most Recent Monitor Data Heart Rate from ECG 112 NIBP 161/84 NIBP BP-Mean 109 Respiration from ECG 10 SpO2 98 I&O: 04/27/20 04/28/20 04/29/20 06:59 06:59 06:59 Intake Total 501.8 1012 Output Total 2745 1900 Balance -2243.2 -888 Result Diagrams: 04/27/20 03:17 04/28/20 07:14 Additional Labs: Accuchecks 04/28/20 04/27/20 04/27/20 04:18 18:22 14:50 POC Glucose 99 136 H 137 H MAR, labs reviewed by wi Hospitalist ROS - Review of Systems Cardiovascular: denies: chest pain, palpitations, orthopnea, paroxysmal noc. dyspnea, edema, light headedness Gastrointestinal: reports: diarrhea. denies: nausea, vomiting, abdominal pain, constipation, melena, hematochezia - Medication Medications: Active Medications Generic Name Dose Route Start Last Admin Trade Name Freq PRN Reason Stop Dose Admin Acetaminophen 650 mg 04/24/20 19:25 04/28/20 08:47 Tylenol Elixir PO 650 mg Q4H PRN Administration Headache/Fever/Mild Pain (1-3) Enoxaparin Sodium 30 mg 04/25/20 09:00 04/28/20 08:43 Lovenox SC 30 mg 0900 VIV Administration Sodium Chloride 1,000 mls @ 100 mls/hr 04/27/20 07:45 04/28/20 03:50 1/2 Normal Saline IV Not Given .Q10H VIV Labetalol HCl 10 mg 04/24/20 19:26 04/26/20 21:22 Normodyne SLOW IVP 10 mg Q4H PRN Administration Systolic BP > 180 Loperamide HCl 2 mg 08/25/20 08:48 04/28/20 09:53 Imodium PO 2 mg PRN PRN Administration Diarrhea/Loose Stools Sodium Chloride 10 ml 04/28/20 09:00 04/28/20 08:44 Flush - Normal Saline IVF 10 ml Q12HR VIV Administration - Exam General Appearance: awake alert General - other findings: Obesity Eye: anicteric sclera ENT: no oropharyngeal lesions Neck: supple Heart: RRR Respiratory: CTAB, no rales Gastrointestinal: soft, non-tender Extremities: no cyanosis Skin: no rashes Psychiatric: normal affect, normal behavior Hosp A/P - Plan Assessment: Drug overdose Suicidal attempt Rhabdomyolysis Hypomagnesemia Degenerative joint disease Acute kidney injury on CKD stage III Metabolic acidosis Hypertension Chronic pain syndrome History of breast and colon cancer Plan: CK has improved. Patient has been advised to maintain good oral fluid intake. PRN Imodium for diarrhea. Stools for C. difficile, Campylobacter and Shiga toxins negative. Patient has been evaluated by [facility], disposition is to transfer to inpatient psychiatry for further management. PT evaluation to assess mobility.
[2020-04-28 11:51] LABS: Hemoglobin A1c 5.1 % (4.0-6.0)
[2020-04-28] MEDS: hydrALAZINE 20 MG/ML VIAL SLOW IVP PRN (17:00)
[2020-04-29] MEDS: Acetaminophen 650 MG/20.3 ML UDCUP PO PRN (00:46)
[2020-04-29] MEDS: Loperamide HCl 2 MG CAP PO PRN ×2 (09:01→15:04)
[2020-04-29] MEDS: Enoxaparin Sodium 30 MG/0.3 ML SYRINGE SC SCH (09:02)
[2020-04-29] MEDS ORDERED: Loratadine 10 MG TAB PO SCH (09:30)
[2020-04-29] MEDS: hydrALAZINE 20 MG/ML VIAL SLOW IVP PRN (10:16)
[2020-04-29] MEDS ORDERED: Amlodipine 10 MG TAB PO SCH (10:45)
[2020-04-29] MEDS ORDERED: Losartan 25 MG TAB PO SCH (10:45)
--- NOTE | 2020-04-29 11:24 | PDOC.HOSPP ---
- Subjective Encounter Date: 04/29/20 Encounter Time: 10:10 Subjective: Patient seen for follow-up regarding sinus tachycardia. She continues to have diarrhea. Denies any fevers or chills. - Objective Vital Signs & Weight: Vital Signs (12 hours) Temp Pulse Resp BP BP Pulse Ox 04/29/20 10:16 106 H 170/101 H 04/29/20 07:07 99.0 F 106 H 16 170/101 H 97 Weight Admit Weight 168 lb Weight 171 lb 11.489 oz Most Recent Monitor Data Heart Rate from ECG 112 NIBP 161/84 NIBP BP-Mean 109 Respiration from ECG 10 SpO2 98 I&O: 04/28/20 04/29/20 04/30/20 06:59 06:59 06:59 Intake Total 1012 1720 Output Total 1900 Balance -888 1720 Result Diagrams: 04/27/20 03:17 04/28/20 07:14 Additional Labs: Accuchecks 04/28/20 04/28/20 23:42 11:47 POC Glucose 96 99 MAR and labs reviewed by ca Hospitalist ROS - Review of Systems Cardiovascular: denies: chest pain, palpitations, orthopnea, paroxysmal noc. dyspnea, edema, light headedness Gastrointestinal: reports: diarrhea. denies: nausea, vomiting, abdominal pain, constipation, melena, hematochezia - Medication Medications: Active Medications Generic Name Dose Route Start Last Admin Trade Name Freq PRN Reason Stop Dose Admin Acetaminophen 650 mg 04/24/20 19:25 04/29/20 00:46 Tylenol Elixir PO 650 mg Q4H PRN Administration Headache/Fever/Mild Pain (1-3) Enoxaparin Sodium 30 mg 04/25/20 09:00 04/29/20 09:02 Lovenox SC 30 mg 0900 VIV Administration Hydralazine HCl 10 mg 04/24/20 19:26 04/29/20 10:16 Apresoline SLOW IVP 10 mg Q4H PRN Administration SBP GREATER THAN 160 Sodium Chloride 1,000 mls @ 100 mls/hr 04/27/20 07:45 04/28/20 20:44 1/2 Normal Saline IV 1,000 mls .Q10H VIV Administration Labetalol HCl 10 mg 04/24/20 19:26 04/26/20 21:22 Normodyne SLOW IVP 10 mg Q4H PRN Administration Systolic BP > 180 Loperamide HCl 2 mg 04/28/20 08:48 04/29/20 09:01 Imodium PO 2 mg PRN PRN Administration Diarrhea/Loose Stools Loratadine 10 mg 04/29/20 09:30 04/29/20 09:48 Claritin PO 04/29/20 11:30 10 mg NOW VIV Administration Sodium Chloride 10 ml 04/28/20 09:00 04/29/20 09:02 Flush - Normal Saline IVF 10 ml Q12HR VIV Administration - Exam General Appearance: awake alert Eye: anicteric sclera ENT: moist mucosa Neck: supple Heart - other findings: S1, S2, regular, tachycardic Respiratory: CTAB Gastrointestinal: soft, non-tender Extremities: no clubbing Musculoskeletal: normal tone, normal strength Psychiatric: normal affect, normal behavior, A&O x 3 Hosp A/P - Plan Assessment: Sinus tachycardia Drug overdose Suicidal attempt Rhabdomyolysis Hypomagnesemia Degenerative joint disease Acute kidney injury on CKD stage III Metabolic acidosis Hypertension Chronic pain syndrome History of breast and colon cancer Plan: Etiology of sinus tachycardia unclear, check d-dimer to rule out pulmonary embolism, check TSH to rule out hyperthyroid state. Sinus tachycardia could be secondary to chronic pain as well. EKG reviewed. Continue PRN Imodium for diarrhea. Patient has been evaluated by [facility], disposition is to transfer to inpatient psychiatry for further management. PT evaluation to assess mobility. Patient complains of sinus congestion, start nasal saline spray and daytime antihistamine.
[2020-04-29 12:10] LABS: #Eosinphils 0.3 thou/uL (0.0-0.7); #Lymphocytes 1.2 thou/uL (1.20-3.40); #Monocytes 1.1 thou/uL (0.11-0.59); %Basophils 0.3 % (0.0-1.0); %Eosinophils 2.6 % (0.0-10.0); %Lymphocytes 12.6 % (21.0-51.0); %Monocytes 11.7 % (0.0-10.0); %Neutrophils 72.7 % (42.0-75.0); Hemoglobin 13.2 g/dL (12.0-16.0); Mean Corpuscular HGB CONC 33.8 g/dL (32.0-36.0); Mean Corpuscular Hemoglobin 32.7 pg (27.0-31.0); Mean Corpuscular Volume 96.8 fL (78.0-98.0); Platelet Count 268 thou/uL (130-400); RBC Distribution Width 12.2 % (11.5-14.5); Red Blood Cell (RBC) Count 4.04 mill/uL (4.20-5.40); White Blood Cell (WBC) Count 9.6 thou/uL (4.8-10.8)
[2020-04-29 13:00] LABS: ALT (SGPT) 57 U/L (8-55); AST (SGOT) 57 U/L (5-34); Albumin 3.6 g/dL (3.4-4.8); Alkaline Phosphatase 174 U/L (40-110); Anion Gap 15 mmol/L (10-20); BUN (Urea Nitrogen) 13 mg/dL (9.8-20.1); Bilirubin, Total 0.5 mg/dL (0.2-1.2); Calc. Creatinine Clearance 71 mL/min (70-130); Calcium 9.1 mg/dL (7.8-10.44); Carbon Dioxide 22 mmol/L (23-31); Chloride 104 mmol/L (98-107); Estimated GFR-MDRD 74; Globulin 3.1 g/dL (2.4-3.5); Glucose 104 mg/dL (83-110); Potassium 3.2 mmol/L (3.5-5.1); Protein, Total 6.7 g/dL (6.0-8.3); Sodium 138 mmol/L (136-145)
[2020-04-29] MEDS: Sodium Chloride 0.45% 1,000 ML IV SCH (13:01)
[2020-04-29] MEDS ORDERED: Saccharomyces boulardii 250 MG CAP PO SCH (13:45)
[2020-04-29] MEDS ORDERED: Iopamidol-370 76% 500 ML 1 ML ONE (14:18)
[2020-04-29] MEDS: Atorvastatin Calcium 10 MG TAB PO SCH (20:28)
[2020-04-29] MEDS: Bupropion 100 MG SR TAB PO SCH (20:28)
[2020-04-29] MEDS: Enoxaparin Sodium 80 MG/0.8 ML SYRINGE SC SCH (20:29)
[2020-04-29] MEDS ORDERED: Simvastatin 20 MG TAB PO SCH (21:00)
[2020-04-29] MEDS ORDERED: BUPROPION HCL 200 MG PO SCH (21:00)
[2020-04-30 06:07] LABS: Anion Gap 14 mmol/L (10-20); BUN (Urea Nitrogen) 12 mg/dL (9.8-20.1); Calc. Creatinine Clearance 65 mL/min (70-130); Carbon Dioxide 23 mmol/L (23-31); Chloride 105 mmol/L (98-107); Estimated GFR-MDRD 67; Glucose 105 mg/dL (83-110); Potassium 3.1 mmol/L (3.5-5.1); Sodium 139 mmol/L (136-145)
[2020-04-30 06:12] LABS: Band 1 % (5-11); Eosinophils 5 % (0-10); Hemoglobin 12.1 g/dL (12.0-16.0); Lymphocytes 24 % (21-51); MDiff Complete? YES; Mean Corpuscular HGB CONC 33.1 g/dL (32.0-36.0); Mean Corpuscular Hemoglobin 32.1 pg (27.0-31.0); Mean Corpuscular Volume 96.7 fL (78.0-98.0); Mean Platelet Volume 8.5 fL (7.4-10.4); Monocytes 16 % (0-10); Neutrophil 53 % (42-75); Platelet Count 292 thou/uL (130-400); Platelet Morphology Comment Appears Adequate; RBC Distribution Width 12.1 % (11.5-14.5); Red Blood Cell (RBC) Count 3.77 mill/uL (4.20-5.40); White Blood Cell (WBC) Count 7.4 thou/uL (4.8-10.8)
[2020-04-30] MEDS ORDERED: Potassium Chloride 20 MEQ TAB PO SCH (06:15)
[2020-04-30] MEDS: Levothyroxine 150 MCG TAB PO SCH (07:48)
[2020-04-30] MEDS: Losartan 25 MG TAB PO SCH (07:54)
[2020-04-30] MEDS: Saccharomyces boulardii 250 MG CAP PO SCH (07:54)
[2020-04-30] MEDS: Amlodipine 10 MG TAB PO SCH (07:56)
[2020-04-30] MEDS: Loratadine 10 MG TAB PO SCH (07:57)
[2020-04-30] MEDS: Bupropion 100 MG SR TAB PO SCH ×2 (07:57→21:25)
[2020-04-30] MEDS: Enoxaparin Sodium 80 MG/0.8 ML SYRINGE SC SCH ×2 (07:59→21:25)
[2020-04-30] MEDS ORDERED: Non-Formulary Item 1 EACH (Losartan Potassium [Losartan Potassium] 100 MG) PO SCH (09:00)
--- NOTE | 2020-04-30 09:31 | CT ---
CT ANGIOGRAM CHEST WITH CONTRAST: 04/29/20 HISTORY: Elevated D-dimer. Breast and colon cancer. COMPARISON: None. FINDINGS: There are emboli within the anterior branch right lower lobe pulmonary artery. Also emboli within the superior segment left lower lobe pulmonary artery. Segmental lingular pulmonary arterial emboli are also present. Small pericardial effusion. Subtle hypodensities of the liver are present concerning for metastatic d isease although incompletely evaluated. Mild atelectasis in the lung bases. No pneumothorax. No effus ion. No acute displaced rib fracture. Interosseous hemangioma lower thoracic spine. Moderate dextroscoliosis of the thoracolumbar junction. Sternum and manubrium are intact. IMPRESSION: 1. Multiple bilateral segmental and subsegmental pulmonary emboli. No evidence for right heart s train. 2. Small pericardial effusion. 3. Heterogeneous appearance to the liver concerning for metastatic disease. Dedicated liver prot ocol CT or MRI is recommended. [employer] message was sent to Dr. Yan at 6:10 p.m. POS: HOME
--- NOTE | 2020-04-30 10:26 | PDOC.HOSPP ---
- Subjective Encounter Date: 04/30/20 Encounter Time: 08:40 Subjective: Patient seen in follow-up for pulmonary embolism. She denies any chest pain or shortness of breath. - Objective Vital Signs & Weight: Vital Signs (12 hours) Temp Pulse Resp BP BP BP Pulse Ox 04/30/20 07:56 111 H 177/102 H 04/30/20 07:36 98.6 F 111 H 16 177/102 H 97 04/30/20 04:42 98.7 F 107 H 18 168/77 H 94 L Weight Admit Weight 168 lb Weight 171 lb 11.489 oz Most Recent Monitor Data Heart Rate from ECG 112 NIBP 161/84 NIBP BP-Mean 109 Respiration from ECG 10 SpO2 98 I&O: 04/29/20 04/30/20 05/01/20 06:59 06:59 06:59 Intake Total 1720 720 Balance 1720 720 Result Diagrams: 04/30/20 05:26 04/30/20 05:26 Additional Labs: I reviewed labs and MAR Hospitalist ROS - Review of Systems Respiratory: denies: cough, shortness of breath, SOB with excertion, pleuritic pain, wheezing Cardiovascular: denies: chest pain, palpitations, orthopnea, paroxysmal noc. dyspnea, edema, light headedness - Medication Medications: Active Medications Generic Name Dose Route Start Last Admin Trade Name Freq PRN Reason Stop Dose Admin Amlodipine Besylate 10 mg 04/30/20 09:00 04/30/20 07:56 Norvasc PO 10 mg DAILY VIV Administration Atorvastatin Calcium 10 mg 04/29/20 21:00 04/29/20 20:28 Lipitor PO 10 mg HS VIV Administration Bupropion HCl 200 mg 04/29/20 21:00 04/30/20 07:57 Wellbutrin Sr PO 200 mg BID VIV Administration Enoxaparin Sodium 80 mg 04/29/20 21:00 04/30/20 07:59 Lovenox SC 80 mg 0900,2100 VIV Administration Hydralazine HCl 10 mg 04/24/20 19:26 04/29/20 10:16 Apresoline SLOW IVP 10 mg Q4H PRN Administration SBP GREATER THAN 160 Labetalol HCl 10 mg 04/24/20 19:26 04/26/20 21:22 Normodyne SLOW IVP 10 mg Q4H PRN Administration Systolic BP > 180 Levothyroxine Sodium 150 mcg 04/30/20 09:00 04/30/20 07:48 Synthroid PO 150 mcg DAILY VIV Administration Loperamide HCl 2 mg 04/28/20 08:48 04/29/20 15:04 Imodium PO 2 mg PRN PRN Administration Diarrhea/Loose Stools Loratadine 10 mg 04/30/20 09:00 04/30/20 07:57 Claritin PO 10 mg DAILY VIV Administration Losartan Potassium 100 mg 04/30/20 09:00 04/30/20 07:54 Cozaar PO 100 mg DAILY VIV Administration Saccharomyces Boulardii 250 mg 04/30/20 09:00 04/30/20 07:54 Florastor PO 250 mg DAILY VIV Administration Sodium Chloride 10 ml 04/28/20 09:00 04/30/20 07:59 Flush - Normal Saline IVF 10 ml Q12HR VIV Administration - Exam General - other findings: Obesity Eye: anicteric sclera ENT: moist mucosa Neck: supple Heart: RRR Respiratory: CTAB Gastrointestinal: soft, non-tender Extremities: no cyanosis Skin: no lesions, no rashes Psychiatric: normal affect, normal behavior, A&O x 3 Hosp A/P - Plan Assessment: Pulmonary embolism Liver lesions Drug overdose Suicidal attempt Rhabdomyolysis Degenerative joint disease Acute kidney injury on CKD stage III, resolved Metabolic acidosis Hypertension Chronic pain syndrome History of breast and colon cancer Plan: Patient has bilateral pulmonary embolism, started on therapeutic Lovenox yesterday evening. Liver lesions, suspected metastases. Patient has a history of breast cancer status post lumpectomy and radiation therapy 6 years ago as well as colon cancer status post surgery 10 years ago. Will obtain records. Will check CT scan of liver to evaluate for metastases. Further management depending on outcome of the test. Continue PRN Imodium for diarrhea. Patient is not medically stable at this time for inpatient psychiatry.
[2020-04-30] MEDS ORDERED: Iopamidol-370 76% 500 ML 1 ML ONE (10:39)
--- NOTE | 2020-04-30 17:50 | CT ---
CLINICAL HISTORY: Liver masses seen on recent CTA. TECHNIQUE: Multiple contiguous axial images were obtained and a CT of the abdomen without and with IV contrast. Postcontrast images were obtained in the arterial and portal venous phases. Coronal and sagittal reformats were performed. COMPARISON: CTA chest 04/29/2020 FINDINGS: Liver: Size: Normal. Contour: Smooth. Mass: There are approximately 3 masses in the right lobe of the liver. These masses demonstrate faint arterial enhancement and washout compared to the background liver parenchyma. The largest measures 3.5 cm in size. There is a subcentimeter nonenhancing lesion in the anterior aspect of the liver and segment 8 which may represent a small cyst. Gallbladder and biliary system: Normal. No CT evident gallstones. No biliary ductal dilatation. Spleen: Normal. Pancreas: Normal. Kidneys: Normal. Adrenal glands: Normal. GI tract: Scattered diverticula in the colon. Abdominal aorta and its major branches: Atherosclerotic calcifications No aneurysm. Peritoneum/retroperitoneum: Normal. No ascites. No adenopathy. Body wall and musculoskeletal: Degenerative changes in the spine. Visualized lower thorax: Normal. No pulmonary parenchymal mass or pleural effusion. IMPRESSION: 1. Multiple lesions in the right middle liver likely represent hypervascular metastatic lesions. 2. Diverticulosis
[2020-04-30] MEDS: Sodium Chloride 0.65% Nasal 44 ML BOT EA NARE PRN (21:24)
[2020-04-30] MEDS: Atorvastatin Calcium 10 MG TAB PO SCH (21:25)
--- NOTE | 2020-05-01 02:44 | CON ---
DATE OF CONSULTATION: 04/30/2020 CHIEF COMPLAINT: Abnormal CT scan of the liver. HISTORY OF PRESENT ILLNESS: Ms. Tomlinson is an 84-year-old woman who was admitted with a drug overdose with intention to commit suicide. She indicated that she had chronic pain from her left hip and wanted to commit suicide for that reason. She was admitted, intubated and subsequently extubated. She has no acute complaints now. No nausea, vomiting, or abdominal pain. She had some diarrhea for a few days when she was initially admitted, but that has resolved. She had no diarrhea prior to admission. No blood in the stool. She was noted to have tachycardia and CT angiogram was performed, which was positive for bilateral pulmonary emboli. She was also noted to have three masses in the right lobe of the liver measuring up to 3.5 cm in size. GI was consulted to evaluate these liver lesions. PAST MEDICAL HISTORY: Breast cancer, status post lumpectomy around 7 years ago. 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 Her last colonoscopy was at least 10 years ago. Hypertension, hypothyroidism, and sleep apnea. PAST SURGICAL HISTORY: Knee replacement, right hemicolectomy, and breast lumpectomy. FAMILY HISTORY: Negative for GI malignancies. SOCIAL HISTORY: No alcohol, tobacco, or drugs. ALLERGIES: 1. CODEINE. 2. TALWIN. CURRENT INPATIENT MEDICATIONS: 1. Amlodipine. 2. Atorvastatin. 3. Bupropion. 4. Enoxaparin 80 mg two times daily. 5. Levothyroxine. 6. Loratadine. 7. Losartan. 8. Saccharomyces. REVIEW OF SYSTEMS: Negative x10 systems reviewed except as stated in the history of present illness. PHYSICAL EXAMINATION: VITAL SIGNS: Temperature 98.8, pulse 120, and blood pressure 153/79. GENERAL: She is in no acute distress. Alert and oriented x3. HEENT: Eyes have no scleral icterus. Oropharynx is clear without lesions. No cervical or supraclavicular lymphadenopathy. LUNGS: Clear to auscultation bilaterally. HEART: Tachycardic. S1 and S2 without murmur. ABDOMEN: Soft, nontender, and nondistended. Bowel sounds are present. EXTREMITIES: No lower extremity edema. Cranial nerves are grossly intact. LABORATORY DATA: White blood cell count 7.4, hemoglobin 12.1, platelets 292. Creatinine 0.82. Bilirubin 0.5, AST 57, ALT 57, alkaline phosphatase 174, and albumin 3.6. COVID was negative. IMPRESSION: 1. Liver lesions by CT scan measuring up to 3.5 cm. There are three masses in the right lobe of the liver. She does have a history of breast cancer and history of neuroendocrine tumor; however, the neuroendocrine tumor was removed in 2006 and the breast cancer was around 7 years ago. 2. Pulmonary embolism, bilateral subsegmental, on Lovenox. 3. Chronic hip pain. 4. Suicide attempt with drug overdose. RECOMMENDATIONS: 1. MRI of the liver with liver mass protocol to better differentiate these lesions. 2. She likely will eventually require liver biopsy of these lesions. The question will just be regarding timing. In light of the newly diagnosed pulmonary emboli and ongoing tachycardia related to that, the liver biopsy can be delayed until the anticoagulation can be held temporarily. Job ID: [id number]
[2020-05-01] MEDS: hydrALAZINE 20 MG/ML VIAL SLOW IVP PRN (04:46)
[2020-05-01 06:12] LABS: #Basophils 0.1 thou/uL (0.0-0.2); #Eosinphils 0.4 thou/uL (0.0-0.7); #Lymphocytes 1.4 thou/uL (1.20-3.40); #Monocytes 1.2 thou/uL (0.11-0.59); #Neutrophils 6.1 thou/uL (1.40-6.50); %Basophils 0.7 % (0.0-1.0); %Lymphocytes 14.9 % (21.0-51.0); %Monocytes 13.5 % (0.0-10.0); %Neutrophils 66.9 % (42.0-75.0); Hemoglobin 12.4 g/dL (12.0-16.0); Mean Corpuscular Volume 96.8 fL (78.0-98.0); Platelet Count 341 thou/uL (130-400); RBC Distribution Width 12.2 % (11.5-14.5); Red Blood Cell (RBC) Count 3.87 mill/uL (4.20-5.40); White Blood Cell (WBC) Count 9.1 thou/uL (4.8-10.8)
[2020-05-01 06:45] LABS: Anion Gap 15 mmol/L (10-20); BUN (Urea Nitrogen) 12 mg/dL (9.8-20.1); Calc. Creatinine Clearance 67 mL/min (70-130); Carbon Dioxide 23 mmol/L (23-31); Chloride 105 mmol/L (98-107); Estimated GFR-MDRD 71; Glucose 95 mg/dL (83-110); Potassium 3.5 mmol/L (3.5-5.1); Sodium 139 mmol/L (136-145)
[2020-05-01] MEDS ORDERED: Potassium Chloride 20 MEQ TAB PO SCH (07:30)
[2020-05-01] MEDS ORDERED: Magnevist 469MG/ML 20 ML VIAL ONE (10:45)
[2020-05-01] MEDS: Enoxaparin Sodium 80 MG/0.8 ML SYRINGE SC SCH ×2 (11:27→22:01)
[2020-05-01] MEDS: Levothyroxine 150 MCG TAB PO SCH (11:28)
[2020-05-01] MEDS: Loratadine 10 MG TAB PO SCH (11:28)
[2020-05-01] MEDS: Bupropion 100 MG SR TAB PO SCH ×2 (11:28→22:01)
[2020-05-01] MEDS: Amlodipine 10 MG TAB PO SCH (11:29)
--- NOTE | 2020-05-01 11:30 | MRI ---
MRI Abdomen W WO Con History: Metastatic disease Comparison: CT exam prior day Findings: No significant pleural effusions. The aortic contour is tortuous, mirroring the reverse S-s haped scoliosis. Intraosseous hemangioma through L1 as seen on MRI from 2017. Spleen is unremarkable. No hydronephrosis. No dilated loops of bowel within the abdomen. There are numerous metastatic lesions within the liver. Within hepatic segment 6 is a 3.2 cm mass. Pe ripherally within hepatic segment 6 is a 7 mm mass. Within hepatic segment 7 is a 12 mm mass which has imaging characteristics more of a hemangioma. Within hepatic segment 8 is a 2 cm mass. Small roslyn pheral simple cyst within hepatic segment 8 measuring 7 mm. Proximal portal vein is patent. Hepatic veins are patent. Impression: Multifocal right hepatic lobe metastatic disease.
[2020-05-01] MEDS: Losartan 25 MG TAB PO SCH (11:41)
[2020-05-01] MEDS: Saccharomyces boulardii 250 MG CAP PO SCH (11:41)
--- NOTE | 2020-05-01 13:20 | PDOC.HOSPP ---
- Subjective Encounter Date: 05/01/20 Encounter Time: 11:00 Subjective: Patient was seen in follow-up for pulmonary embolism. She denies any chest pain or shortness of breath. - Objective Vital Signs & Weight: Vital Signs (12 hours) Temp Pulse Resp BP BP BP Pulse Ox 05/01/20 11:29 116 H 05/01/20 08:00 95 05/01/20 07:23 99.2 F 116 H 17 152/71 H 95 05/01/20 04:46 109 H 163/79 H 05/01/20 03:39 99.2 F 109 H 20 163/79 H 100 Weight Admit Weight 168 lb Weight 169 lb Most Recent Monitor Data Heart Rate from ECG 112 NIBP 161/84 NIBP BP-Mean 109 Respiration from ECG 10 SpO2 98 I&O: 04/30/20 05/01/20 05/02/20 06:59 06:59 06:59 Intake Total 720 720 Balance 720 720 Result Diagrams: 05/01/20 05:57 05/01/20 05:57 Additional Labs: Accuchecks 05/01/20 12:18 POC Glucose 173 H I reviewed the MAR, labs Hospitalist ROS - Review of Systems Cardiovascular: denies: chest pain, palpitations, orthopnea, paroxysmal noc. dyspnea, edema, light headedness Genitourinary: denies: dysuria, frequency, incontinence, hematuria, retention - Medication Medications: Active Medications Generic Name Dose Route Start Last Admin Trade Name Freq PRN Reason Stop Dose Admin Amlodipine Besylate 10 mg 04/30/20 09:00 05/01/20 11:29 Norvasc PO 10 mg DAILY VIV Administration Atorvastatin Calcium 10 mg 04/29/20 21:00 04/30/20 21:25 Lipitor PO 10 mg HS VIV Administration Bupropion HCl 200 mg 04/29/20 21:00 05/01/20 11:28 Wellbutrin Sr PO 200 mg BID VIV Administration Enoxaparin Sodium 80 mg 04/29/20 21:00 05/01/20 11:27 Lovenox SC 80 mg 0900,2100 VIV Administration Hydralazine HCl 10 mg 04/24/20 19:26 05/01/20 04:46 Apresoline SLOW IVP 10 mg Q4H PRN Administration SBP GREATER THAN 160 Labetalol HCl 10 mg 04/24/20 19:26 04/26/20 21:22 Normodyne SLOW IVP 10 mg Q4H PRN Administration Systolic BP > 180 Levothyroxine Sodium 150 mcg 04/30/20 09:00 05/01/20 11:28 Synthroid PO 150 mcg DAILY VIV Administration Loperamide HCl 2 mg 04/28/20 08:48 04/29/20 15:04 Imodium PO 2 mg PRN PRN Administration Diarrhea/Loose Stools Loratadine 10 mg 04/30/20 09:00 05/01/20 11:28 Claritin PO 10 mg DAILY VIV Administration Losartan Potassium 100 mg 04/30/20 09:00 05/01/20 11:41 Cozaar PO 100 mg DAILY VIV Administration Saccharomyces Boulardii 250 mg 04/30/20 09:00 05/01/20 11:41 Florastor PO 250 mg DAILY VIV Administration Sodium Chloride 10 ml 04/28/20 09:00 05/01/20 11:40 Flush - Normal Saline IVF 10 ml Q12HR VIV Administration Sodium Chloride 0 ml 04/29/20 09:13 04/30/20 21:24 [place] Nasal [place] 0.65% EA NARE 1 spr TIDPRN PRN Administration Nasal Congestion - Exam General Appearance: awake alert Eye: anicteric sclera ENT: normocephalic atraumatic Neck: supple Heart: RRR Respiratory: CTAB Gastrointestinal: soft, non-tender Extremities: no clubbing Skin: no rashes Musculoskeletal: normal tone, normal strength Hosp A/P - Plan Assessment: Pulmonary embolism Liver metastases Drug overdose Suicidal attempt Rhabdomyolysis Degenerative joint disease Acute kidney injury on CKD stage III, resolved Metabolic acidosis Hypertension Chronic pain syndrome History of breast and colon cancer Plan: Continue therapeutic Lovenox, transition to oral anticoagulants once it is clear that she does not need any procedures. Diarrhea has resolved. Appreciate GI service input, medical oncology consult is pending.
--- NOTE | 2020-05-01 17:08 | PRG ---
DATE OF SERVICE: 05/01/2020 SUBJECTIVE: Ms. Tomlinson has no acute complaints. No abdominal pain. No diarrhea, constipation, or blood in the stool. PHYSICAL EXAMINATION: VITAL SIGNS: Temperature 99.2, pulse 116, blood pressure 152/71. GENERAL: She is in no acute distress. Alert and oriented x3. LUNGS: Clear to auscultation bilaterally. HEART: Tachycardic, S1 and S2, without murmur. ABDOMEN: Soft, nontender, and nondistended. Bowel sounds are present. EXTREMITIES: No lower extremity edema. LABORATORY DATA: White blood cell count 9.1, hemoglobin 12.2, platelets 341. Creatinine 0.78. IMPRESSION: 1. Multiple liver metastases. MRI today is most consistent with multiple right hepatic lobe metastatic disease. 2. Pulmonary embolism, on Lovenox. 3. History of breast cancer years ago and neuroendocrine tumor of the ileocecal valve, back as far as 2006. RECOMMENDATIONS: 1. She is on Lovenox now for the PE. 2. We will hold the Lovenox after her morning dose on Monday. CT-guided biopsy of the liver masses is scheduled for Monday at 2 p.m. Lovenox can then be resumed 24 to 48 hours after the biopsy. Job ID: [id number]
--- NOTE | 2020-05-01 20:21 | CON ---
DATE OF CONSULTATION: REASON FOR CONSULTATION: History of breast cancer, colon cancer, and liver lesions. HISTORY OF PRESENT ILLNESS: Ms. Tomlinson is an 84-year-old female who was admitted to this facility for drug overdose with suicide intention. This is apparently due to chronic pain from her left hip. Once extubated, she remained tachycardic, so chest and thorax CT angio was performed, which showed multiple bilateral segmental and subsegmental pulmonary emboli. She had a small pericardial effusion. There was a heterogeneous appearance to the liver, concerning for metastatic disease, so she underwent an abdominal CT and an abdominal MRI. MRI showed numerous metastatic lesions in the liver. Within the hepatic segment 6, there was a 3.2 cm mass; peripherally in the same segment, there was a 7 mm mass; within segment 7, there was a 12-mm mass; within hepatic segment 8, there was a 2 cm mass. There were small peripheral cysts within hepatic segment 8, measuring 7 mm. She has a history of metastatic neuroendocrine carcinoma. In 2006, she underwent a right colon and small bowel resection. Pathology stated moderately poorly differentiated grade 4 neuroendocrine carcinoma. There was a 6 out of 8 lymph nodes positive for disease. She apparently had a PET scan after her colon resection, which she states was negative. She did not undergo any chemotherapy treatment. 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 She underwent lumpectomy with sentinel lymph node biopsy. She had 1 out of 1 positive node. She was ER/TN positive, HER2 negative. She did complete 5 years of letrozole. She also had radiation to her breast. She has been getting yearly mammograms, which she states have been normal. She denies any weight loss. No abdominal bloating or cramping. No pain. She does have a history of venous stripping from her right leg. PAST MEDICAL HISTORY: 1. Hypertension. 2. ER/TN positive, HER2 negative invasive ductal carcinoma of breast cancer in 2012. 3. Metastatic neuroendocrine carcinoma in 2006. 4. Hypothyroidism. 5. Sleep apnea. 6. Anxiety and depression. PAST SURGICAL HISTORY: 1. Right hemicolectomy. 2. Breast lumpectomy. 3. Knee replacements. ALLERGIES: TO CODEINE. HOME MEDICATIONS: 1. Amlodipine. 2. Bupropion. 3. Synthroid. 4. Losartan. 5. Florastor. FAMILY HISTORY: Positive for stroke. Her brother had melanoma. SOCIAL HISTORY: , has 3 children. Lives with her son and daughter-in- law. No alcohol, tobacco, or illicit drug use. REVIEW OF SYSTEMS: A 10-point review of systems is negative except for noted in HPI. PHYSICAL EXAMINATION: VITAL SIGNS: Temperature is 99.2, pulse is 116, respiratory rate 17, BP is 152/ 71, and she is 95% on room air. GENERAL: A well-developed, well-nourished female, in no acute distress. HEENT: Normocephalic and atraumatic. Pupils equal and reactive to light. NECK: Supple. CV: Regular rate and rhythm. LUNGS: Clear. ABDOMEN: Soft and nontender. Bowel sounds are positive. EXTREMITIES: There is no clubbing or cyanosis. SKIN: No rash. BREASTS: She has scar tissue on her left breast from lumpectomy. NEUROLOGIC: Nonfocal. PERTINENT LABORATORY DATA AND X-RAYS: Current WBCs are 9.1, hemoglobin 12.4, hematocrit 37.5, platelet count is 341,000, 66% neutrophils, 15% lymphocytes, 13 % monocytes. Sodium 139, potassium 3.5, chloride 105, CO2 is 23, BUN is 12, creatinine 0.78, calcium 9, bilirubin 0.5, AST is 57, ALT is 57, alkaline phosphatase is 174. Serum total protein is 6.7, albumin 3.6, globulin 3.1. TSH is 6.5. COVID negative. Radiology per HPI. ASSESSMENT: 1. History of left breast cancer status post lumpectomy and radiation with a low Oncotype recurrence score of 7 and completion of 5 years of letrozole. 2. History of metastatic neuro endocrine carcinoma involving 6 out of 8 lymph nodes, status post right colon and small-bowel resection in 2006. 3. Liver lesions, concerning for metastatic disease. 4. Acute pulmonary emboli. DISCUSSION: Case has been discussed with Dr. Oviedo. The patient has acute pulmonary emboli, possibly secondary to recurrent cancer. She has a low recurrence score on her Oncotype for breast cancer and it is unlikely that these liver lesions are related to the breast. With her history of metastatic neuroendocrine cancer , these may be from her colon. However, in review her for the patient's medical records, I did find a record dated [address]-guided biopsy of liver mass x2. I could not find pathology for this and the patient does not remember the results. She does remember a negative PET scan post surgical. Since she has started on anticoagulation, the best option may be a PET scan to further assess these liver lesions. If positive, then a biopsy can be done. She also needs a colonoscopy. The patient has been seen in our clinic several years ago and will help coordinate the PET scan. Thank you for the consult. Job ID: [id number] [email or web address]
[2020-05-01] MEDS: Atorvastatin Calcium 10 MG TAB PO SCH (22:02)
[2020-05-01] MEDS: Acetaminophen 325 MG TAB PO PRN (22:54)
[2020-05-02] MEDS: hydrALAZINE 20 MG/ML VIAL SLOW IVP PRN (05:04)
[2020-05-02 05:50] LABS: #Basophils 0.1 thou/uL (0.0-0.2); #Eosinphils 0.3 thou/uL (0.0-0.7); #Lymphocytes 1.5 thou/uL (1.20-3.40); #Monocytes 1.3 thou/uL (0.11-0.59); #Neutrophils 5.6 thou/uL (1.40-6.50); %Basophils 0.8 % (0.0-1.0); %Eosinophils 3.5 % (0.0-10.0); %Lymphocytes 16.8 % (21.0-51.0); %Monocytes 14.9 % (0.0-10.0); %Neutrophils 64.2 % (42.0-75.0); Hemoglobin 12.3 g/dL (12.0-16.0); Mean Corpuscular HGB CONC 33.1 g/dL (32.0-36.0); Mean Corpuscular Hemoglobin 32.3 pg (27.0-31.0); Mean Corpuscular Volume 97.6 fL (78.0-98.0); Mean Platelet Volume 7.9 fL (7.4-10.4); Platelet Count 365 thou/uL (130-400); RBC Distribution Width 12.2 % (11.5-14.5); Red Blood Cell (RBC) Count 3.79 mill/uL (4.20-5.40); White Blood Cell (WBC) Count 8.7 thou/uL (4.8-10.8)
[2020-05-02 06:21] LABS: Anion Gap 14 mmol/L (10-20); BUN (Urea Nitrogen) 13 mg/dL (9.8-20.1); Calc. Creatinine Clearance 68 mL/min (70-130); Calcium 8.9 mg/dL (7.8-10.44); Carbon Dioxide 23 mmol/L (23-31); Chloride 104 mmol/L (98-107); Estimated GFR-MDRD 71; Glucose 96 mg/dL (83-110); Potassium 3.6 mmol/L (3.5-5.1); Sodium 137 mmol/L (136-145)
[2020-05-02] MEDS: Mag-Al 1200 mg/1200 mg/30 ML UDCUP PO PRN (10:18)
[2020-05-02] MEDS: Losartan 25 MG TAB PO SCH (12:01)
[2020-05-02] MEDS: Bupropion 100 MG SR TAB PO SCH ×2 (12:02→21:57)
[2020-05-02] MEDS: Amlodipine 10 MG TAB PO SCH (12:02)
[2020-05-02] MEDS: Loratadine 10 MG TAB PO SCH (12:02)
[2020-05-02] MEDS: Enoxaparin Sodium 80 MG/0.8 ML SYRINGE SC SCH ×2 (12:03→21:57)
[2020-05-02] MEDS: Levothyroxine 150 MCG TAB PO SCH (13:26)
--- NOTE | 2020-05-02 16:11 | PRG ---
DATE OF SERVICE: 05/02/2020 SUBJECTIVE: Ms. Tomlinson has no abdominal pain or complaints today. OBJECTIVE: VITAL SIGNS: Temperature 98.6, pulse 112, and blood pressure 158/72. GENERAL: She is in no acute distress. Alert and oriented x3. LUNGS: Clear to auscultation bilaterally. HEART: Tachycardic. S1 and S2 without murmur. ABDOMEN: Soft, nontender, and nondistended. Bowel sounds are present. EXTREMITIES: No lower extremity edema. LABORATORY DATA: Hemoglobin is 12.3. Creatinine 0.78. IMPRESSION: 1. Metastatic disease to the liver. She has a history of neuroendocrine tumor, which could be the most likely source. She also has a history of breast cancer. 2. Pulmonary embolism, on Lovenox. RECOMMENDATIONS: I discussed her case with Dr. Oviedo with Oncology. The plan is to hold Lovenox after her morning dose tomorrow. CT-guided biopsy of the liver is scheduled for Monday at 2:00 p.m. Lovenox can then be resumed on Monday. Timing of the anticoagulation was discussed with Interventional Radiology. Job ID: [id number]
[2020-05-02] MEDS: Loperamide HCl 2 MG CAP PO PRN (17:16)
[2020-05-02] MEDS: Saccharomyces boulardii 250 MG CAP PO SCH (17:16)
--- NOTE | 2020-05-02 21:31 | PDOC.HOSPP ---
- Subjective Subjective: Patient was seen and examined in bed She had not complaints A sitter was in the room with her - Objective Vital Signs & Weight: Vital Signs (12 hours) Temp Pulse Resp BP BP Pulse Ox 05/02/20 20:00 98.4 F 110 H 18 153/80 H 95 05/02/20 12:05 112 H 158/72 H Weight Admit Weight 168 lb Weight 170 lb Most Recent Monitor Data Heart Rate from ECG 112 NIBP 161/84 NIBP BP-Mean 109 Respiration from ECG 10 SpO2 98 I&O: 05/01/20 05/02/20 05/03/20 06:59 06:59 06:59 Intake Total 720 480 600 Balance 720 480 600 Result Diagrams: 05/05/20 10:23 05/05/20 10:23 Additional Labs: Accuchecks 05/02/20 05/01/20 04:47 20:32 POC Glucose 91 100 Hospitalist ROS - Review of Systems Constitutional: denies: fever, chills, weakness Respiratory: denies: cough, shortness of breath, SOB with excertion Cardiovascular: denies: chest pain, palpitations, orthopnea, paroxysmal noc. dyspnea Genitourinary: denies: dysuria, frequency, hematuria - Medication Medications: Active Medications Generic Name Dose Route Start Last Admin Trade Name Freq PRN Reason Stop Dose Admin Acetaminophen 650 mg 04/30/20 04:37 05/01/20 22:54 Tylenol PO 650 mg Q4H PRN Administration Headache/Fever/Mild Pain (1-3) Al Hydroxide/Mg Hydroxide 30 ml 05/02/20 09:39 05/02/20 10:18 Maalox PO 30 ml Q6H PRN Administration Heartburn or Indigestion Amlodipine Besylate 10 mg 04/30/20 09:00 05/02/20 12:02 Norvasc PO 10 mg DAILY VIV Administration Atorvastatin Calcium 10 mg 04/29/20 21:00 05/01/20 22:02 Lipitor PO 10 mg HS VIV Administration Bupropion HCl 200 mg 04/29/20 21:00 05/02/20 12:02 Wellbutrin Sr PO 200 mg BID VIV Administration Enoxaparin Sodium 80 mg 04/29/20 21:00 05/02/20 12:03 Lovenox SC 80 mg 0900,2100 VIV Administration Hydralazine HCl 10 mg 04/24/20 19:26 05/02/20 05:04 Apresoline SLOW IVP 10 mg Q4H PRN Administration SBP GREATER THAN 160 Labetalol HCl 10 mg 04/24/20 19:26 04/26/20 21:22 Normodyne SLOW IVP 10 mg Q4H PRN Administration Systolic BP > 180 Loperamide HCl 2 mg 04/28/20 08:48 05/02/20 17:16 Imodium PO 2 mg PRN PRN Administration Diarrhea/Loose Stools Loratadine 10 mg 04/30/20 09:00 05/02/20 12:02 Claritin PO 10 mg DAILY VIV Administration Losartan Potassium 100 mg 04/30/20 09:00 05/02/20 12:01 Cozaar PO 100 mg DAILY VIV Administration Saccharomyces Boulardii 250 mg 04/30/20 09:00 05/02/20 17:16 Florastor PO 250 mg DAILY VIV Administration Sodium Chloride 10 ml 04/28/20 09:00 05/02/20 17:18 Flush - Normal Saline IVF 10 ml Q12HR VIV Administration Sodium Chloride 0 ml 04/29/20 09:13 04/30/20 21:24 [place] Nasal [place] 0.65% EA NARE 1 spr TIDPRN PRN Administration Nasal Congestion - Exam General Appearance: awake alert Eye: anicteric sclera Heart: RRR, no murmur, normal peripheral pulses Respiratory: no wheezes, no rales, no ronchi Gastrointestinal: soft, non-tender, non-distended, normal bowel sounds Extremities: no cyanosis, no clubbing Neurological: cranial nerve grossly intact Hosp A/P - Plan 84 year old patient with a hisotory of metastatic neuroendocrine tumor, on admission on account of attempted suicide and found to have PE she is otherwise stable. She is status post extubation -suicidal ideation She denies any ideations at the [facility] Sitter in place continue monitoring -Metastatic neuroenocrine tumor Liver biopsy planned for 05/04/20 Lovenox will be held prior -Pulmonary embolism Continue on lovenox hold prior to liver biopsy VTE prophylaxis-on lovenox -
[2020-05-02] MEDS: Atorvastatin Calcium 10 MG TAB PO SCH (21:58)
[2020-05-02] MEDS ORDERED: TEMAZEPAM PO PRN (23:55)
[2020-05-03] MEDS: Temazepam 15 MG CAP PO PRN ×2 (00:10→21:07)
[2020-05-03] MEDS: Levothyroxine 150 MCG TAB PO SCH (06:10)
[2020-05-03 06:14] VITALS: BMI 29.7
[2020-05-03] MEDS: Saccharomyces boulardii 250 MG CAP PO SCH (08:38)
[2020-05-03] MEDS: Losartan 25 MG TAB PO SCH (08:41)
[2020-05-03] MEDS: Amlodipine 10 MG TAB PO SCH (08:42)
[2020-05-03] MEDS: Loratadine 10 MG TAB PO SCH (08:42)
[2020-05-03] MEDS: Enoxaparin Sodium 80 MG/0.8 ML SYRINGE SC SCH (08:42)
[2020-05-03] MEDS: Bupropion 100 MG SR TAB PO SCH ×2 (08:43→21:01)
--- NOTE | 2020-05-03 15:53 | PDOC.HOSPP ---
- Subjective Encounter Date: 05/03/20 Encounter Time: 12:30 Subjective: Patient was seen and examined in bed. Sitter was present in the room otherwise no issues to complain about. She however [place] my attention to a superficial wound on her right arm on the lateral surface. Patient notes she had a small bruise there while being transported by ambulance to the ED - Objective Vital Signs & Weight: Vital Signs (12 hours) Temp Pulse Resp BP BP BP Pulse Ox 05/03/20 08:42 106 H 170/88 H 05/03/20 07:46 98.1 F 106 H 17 170/88 H 93 L 05/03/20 04:00 97.6 F 93 162/75 H 94 L Weight Admit Weight 168 lb Weight 168 lb Most Recent Monitor Data Heart Rate from ECG 112 NIBP 161/84 NIBP BP-Mean 109 Respiration from ECG 10 SpO2 98 I&O: 05/02/20 05/03/20 05/04/20 06:59 06:59 06:59 Intake Total 480 800 720 Balance 480 800 720 Result Diagrams: 05/05/20 10:23 05/05/20 10:23 Additional Labs: Accuchecks 05/03/20 11:23 POC Glucose 104 Hospitalist ROS - Review of Systems Constitutional: denies: fever, chills, weakness Respiratory: denies: cough, shortness of breath, SOB with excertion Cardiovascular: denies: chest pain, orthopnea, paroxysmal noc. dyspnea Genitourinary: denies: dysuria, incontinence, hematuria Musculoskeletal: denies: neck pain, shoulder pain, back pain - Medication Medications: Active Medications Generic Name Dose Route Start Last Admin Trade Name Rockyq PRN Reason Stop Dose Admin Acetaminophen 650 mg 04/30/20 04:37 05/01/20 22:54 Tylenol PO 650 mg Q4H PRN Administration Headache/Fever/Mild Pain (1-3) Al Hydroxide/Mg Hydroxide 30 ml 05/02/20 09:39 05/02/20 10:18 Maalox PO 30 ml Q6H PRN Administration Heartburn or Indigestion Amlodipine Besylate 10 mg 04/30/20 09:00 05/03/20 08:42 Norvasc PO 10 mg DAILY VIV Administration Atorvastatin Calcium 10 mg 04/29/20 21:00 05/02/20 21:58 Lipitor PO 10 mg HS VIV Administration Bupropion HCl 200 mg 04/29/20 21:00 05/03/20 08:43 Wellbutrin Sr PO 200 mg BID VIV Administration Enoxaparin Sodium 80 mg 04/29/20 21:00 05/03/20 08:42 Lovenox SC 80 mg 0900,2100 VIV Administration Hydralazine HCl 10 mg 04/24/20 19:26 05/02/20 05:04 Apresoline SLOW IVP 10 mg Q4H PRN Administration SBP GREATER THAN 160 Doxycycline Hyclate 100 mg/ 100 mls @ 100 mls/hr 05/03/20 14:00 05/03/20 14: 39 Sodium Chloride IVPB 100 mls 0200,1400 VIV Administration Labetalol HCl 10 mg 04/24/20 19:26 04/26/20 21:22 Normodyne SLOW IVP 10 mg Q4H PRN Administration Systolic BP > 180 Levothyroxine Sodium 150 mcg 05/03/20 06:00 05/03/20 06:10 Synthroid PO 150 mcg 0600 VIV Administration Loperamide HCl 2 mg 04/28/20 08:48 05/02/20 17:16 Imodium PO 2 mg PRN PRN Administration Diarrhea/Loose Stools Loratadine 10 mg 04/30/20 09:00 05/03/20 08:42 Claritin PO Not Given DAILY [facility] Losartan Potassium 100 mg 04/30/20 09:00 05/03/20 08:41 Cozaar PO 100 mg DAILY VIV Administration Saccharomyces Boulardii 250 mg 04/30/20 09:00 05/03/20 08:38 Florastor PO 250 mg DAILY VIV Administration Sodium Chloride 10 ml 04/28/20 09:00 05/03/20 08:43 Flush - Normal Saline IVF 10 ml Q12HR VIV Administration Sodium Chloride 0 ml 04/29/20 09:13 04/30/20 21:24 [place] Nasal [place] 0.65% EA NARE 1 spr TIDPRN PRN Administration Nasal Congestion Temazepam 30 mg 05/03/20 00:00 05/03/20 00:10 Restoril PO 30 mg HS PRN Administration Insomnia - Exam General Appearance: awake alert Eye: PERRL, anicteric sclera Neck: no JVD, no lymphadenopathy Heart: RRR, no murmur, normal peripheral pulses Respiratory: no wheezes, no rales, no ronchi Gastrointestinal: soft, non-tender, non-distended, normal bowel sounds, no palpable masses Extremities - other findings: Right arm wound, surface dry however has indurated surroundings Neurological: cranial nerve grossly intact Psychiatric: A&O x 3 Hosp A/P - Plan 84 year old patient with a hisotory of metastatic neuroendocrine tumor with lessions seen in liver, now with PE on Lovenox, on admission on account of attempted suicide she is otherwise stable. biopsy of hepatic lesion tomorrow. -Suicidal ideation She denies any at the [facility] Sitter in place continue monitoring -Metastatic neuroenocrine tumor Liver biopsy planned for 05/04/20 Lovenox will be held this evening prior to procedure -PE Continue on lovenox hold prior to liver biopsy -Right arm wound She notes was present at admission likely from bruising during transport has surrounding cellulitis will start doxycycline Acute encephalopathy at presentation Resolved Acute hypoxic respiratory failure Was intubated for airway protection Currently post intubation and very stable. Hypertension Blood pressure stable we will monitor. History of breast and colon cancer. VTE prophylaxistherapeutic on Lovenox. Disposition. Possible home -
--- NOTE | 2020-05-03 18:00 | PRG ---
DATE OF SERVICE: 05/03/2020 SUBJECTIVE: Ms. Tomlinson has no complaints today. OBJECTIVE: VITAL SIGNS: Temperature 98.1, pulse 106, and blood pressure 170/ 88. GENERAL: No acute distress. Alert and oriented x3. LUNGS: Clear to auscultation bilaterally. HEART: Tachycardic. S1, S2. No murmur. ABDOMEN: Soft, nontender, and nondistended. Bowel sounds are present. EXTREMITIES: No lower extremity edema. IMPRESSION: 1. Liver masses, suspect metastatic neuroendocrine tumor. Biopsy planned for tomorrow. 2. Pulmonary embolism. She is on Lovenox. She received her dose this morning and the next dose will be given on Monday morning. Timing of biopsy is planned for 1400 tomorrow. Job ID: [id number] MTDD
[2020-05-03] MEDS: Atorvastatin Calcium 10 MG TAB PO SCH (21:01)
[2020-05-03] MEDS: hydrALAZINE 20 MG/ML VIAL SLOW IVP PRN (21:07)
[2020-05-04 06:04] LABS: #Eosinphils 0.3 thou/uL (0.0-0.7); #Lymphocytes 1.5 thou/uL (1.20-3.40); #Monocytes 1.1 thou/uL (0.11-0.59); #Neutrophils 5.9 thou/uL (1.40-6.50); %Basophils 0.4 % (0.0-1.0); %Eosinophils 3.1 % (0.0-10.0); %Lymphocytes 17.4 % (21.0-51.0); %Monocytes 12.6 % (0.0-10.0); %Neutrophils 66.4 % (42.0-75.0); Hemoglobin 11.8 g/dL (12.0-16.0); INR-International Normal Ratio 1.1; Mean Corpuscular Hemoglobin 31.8 pg (27.0-31.0); Mean Corpuscular Volume 96.5 fL (78.0-98.0); Mean Platelet Volume 7.6 fL (7.4-10.4); PTT 31.4 sec (22.9-36.1); Platelet Count 437 thou/uL (130-400); Prothrombin Time 13.7 sec (12.0-14.7); RBC Distribution Width 12.2 % (11.5-14.5); White Blood Cell (WBC) Count 8.8 thou/uL (4.8-10.8)
[2020-05-04] MEDS: Levothyroxine 150 MCG TAB PO SCH (06:13)
[2020-05-04 06:26] LABS: ALT (SGPT) 86 U/L (8-55); AST (SGOT) 51 U/L (5-34); Albumin 3.4 g/dL (3.4-4.8); Alkaline Phosphatase 146 U/L (40-110); Anion Gap 15 mmol/L (10-20); BUN (Urea Nitrogen) 16 mg/dL (9.8-20.1); Bilirubin, Total 0.3 mg/dL (0.2-1.2); Calc. Creatinine Clearance 55 mL/min (70-130); Calcium 8.6 mg/dL (7.8-10.44); Carbon Dioxide 21 mmol/L (23-31); Chloride 104 mmol/L (98-107); Estimated GFR-MDRD 56; Globulin 2.5 g/dL (2.4-3.5); Glucose 92 mg/dL (83-110); Potassium 3.5 mmol/L (3.5-5.1); Protein, Total 5.9 g/dL (6.0-8.3); Sodium 136 mmol/L (136-145)
[2020-05-04] MEDS ORDERED: Potassium Chloride 20 MEQ TAB PO SCH (07:30)
[2020-05-04] MEDS: Losartan 25 MG TAB PO SCH (07:59)
[2020-05-04] MEDS: Amlodipine 10 MG TAB PO SCH (08:00)
[2020-05-04] MEDS ORDERED: Fentanyl 100 MCG/2 ML VIAL ONE (08:01)
[2020-05-04] MEDS ORDERED: Sodium Bicarbonate 2.5 MEQ/5 ML VIAL ONE (08:01)
[2020-05-04] MEDS ORDERED: Midazolam HCl 2 mg/2 ml Vial ONE (08:32)
[2020-05-04] MEDS: Bupropion 100 MG SR TAB PO SCH ×2 (12:02→20:48)
[2020-05-04] MEDS: Saccharomyces boulardii 250 MG CAP PO SCH (12:02)
[2020-05-04] MEDS: Loratadine 10 MG TAB PO SCH ×2 (12:03→20:48)
[2020-05-04] MEDS: Sodium Chloride 0.65% Nasal 44 ML BOT EA NARE PRN (12:07)
--- NOTE | 2020-05-04 17:10 | PRG ---
DATE OF SERVICE: 05/04/2020 SUBJECTIVE: Ms. Tomlinson had her liver biopsy today. She has no other acute complaints currently. OBJECTIVE: VITAL SIGNS: Temperature is 98.7, pulse 100, and blood pressure 140/66. GENERAL: She is in no acute distress. Alert and oriented x3. LUNGS: Clear to auscultation bilaterally. HEART: Regular rate and rhythm without murmur. ABDOMEN: Soft, nontender, and nondistended. Bowel sounds are present. EXTREMITIES: No lower extremity edema. IMPRESSION: 1. Liver mass, status post biopsy. Concerning for neuroendocrine tumor based on history; however, we will await histopathology. Radiology wanted her Lovenox held 24 hours prior to the biopsy and 24 to 48 hours after the biopsy. She should be able to resume her Lovenox on Monday. RECOMMENDATIONS: 1. Resume Lovenox on Monday and she can change to oral anticoagulation at that point. 2. Follow up with Dr. Oviedo regarding the results of her liver biopsy. 3. I will sign off for now. Please call if GI can be of assistance. Job ID: [id number]
--- NOTE | 2020-05-04 17:16 | EKG ---
Test Reason : Blood Pressure : / mmHG Vent. Rate : 120 BPM Atrial Rate : 120 BPM P-R Int : 144 ms QRS Dur : 098 ms QT Int : 314 ms P-R-T Axes : 046 -34 094 degrees QTc Int : 443 ms Sinus tachycardia with Premature supraventricular complexes Left axis deviation Left ventricular hypertrophy with repolarization abnormality Abnormal ECG No previous ECGs available Confirmed by MICAELA QUINTERO (2) on 05/04/2020 5:16:33 PM Referred By: RABIA Confirmed By:MICAELA QUINTERO
[2020-05-04] MEDS: Atorvastatin Calcium 10 MG TAB PO SCH (20:48)
[2020-05-04] MEDS: Temazepam 15 MG CAP PO PRN (20:51)
--- NOTE | 2020-05-04 23:48 | PDOC.HOSPP ---
- Subjective Encounter Date: 05/04/20 Encounter Time: 13:00 Subjective: Patient was seen and examined in bed. She was status post liver biopsy and she was doing all right. She denied any pain or shortness of breath. Has mild pain at biopsy site - Objective Vital Signs & Weight: Vital Signs (12 hours) Temp Pulse Resp BP BP Pulse Ox 05/04/20 20:34 99 F 107 H 17 140/71 94 L 05/04/20 16:21 98.7 F 100 18 140/66 94 L 05/04/20 14:00 98.2 F 102 H 18 148/76 H 96 Weight Admit Weight 168 lb Weight 168 lb 3.756 oz Most Recent Monitor Data Heart Rate from ECG 112 NIBP 161/84 NIBP BP-Mean 109 Respiration from ECG 10 SpO2 98 I&O: 05/03/20 05/04/20 05/05/20 06:59 06:59 06:59 Intake Total 800 1860 1230 Balance 800 1860 1230 Result Diagrams: 05/05/20 10:23 05/05/20 10:23 Hospitalist ROS - Review of Systems Constitutional: reports: fever, chills, sweats, weakness Respiratory: denies: cough, shortness of breath, hemoptysis Gastrointestinal: denies: nausea, vomiting, abdominal pain, diarrhea - Medication Medications: Active Medications Generic Name Dose Route Start Last Admin Trade Name Freq PRN Reason Stop Dose Admin Acetaminophen 650 mg 04/30/20 04:37 05/01/20 22:54 Tylenol PO 650 mg Q4H PRN Administration Headache/Fever/Mild Pain (1-3) Al Hydroxide/Mg Hydroxide 30 ml 05/02/20 09:39 05/02/20 10:18 Maalox PO 30 ml Q6H PRN Administration Heartburn or Indigestion Amlodipine Besylate 10 mg 04/30/20 09:00 05/04/20 08:00 Norvasc PO 10 mg DAILY VIV Administration Atorvastatin Calcium 10 mg 04/29/20 21:00 05/04/20 20:48 Lipitor PO 10 mg HS VIV Administration Bupropion HCl 200 mg 04/29/20 21:00 05/04/20 20:48 Wellbutrin Sr PO 200 mg BID VIV Administration Enoxaparin Sodium 80 mg 04/29/20 21:00 05/03/20 08:42 Lovenox SC 80 mg 0900,2100 VIV Administration Hydralazine HCl 10 mg 04/24/20 19:26 05/03/20 21:07 Apresoline SLOW IVP 10 mg Q4H PRN Administration SBP GREATER THAN 160 Doxycycline Hyclate 100 mg/ 100 mls @ 100 mls/hr 05/03/20 14:00 05/04/20 13: 46 Sodium Chloride IVPB 100 mls 0200,1400 VIV Administration Labetalol HCl 10 mg 04/24/20 19:26 04/26/20 21:22 Normodyne SLOW IVP 10 mg Q4H PRN Administration Systolic BP > 180 Levothyroxine Sodium 150 mcg 05/03/20 06:00 05/04/20 06:13 Synthroid PO 150 mcg 0600 VIV Administration Loperamide HCl 2 mg 04/28/20 08:48 05/02/20 17:16 Imodium PO 2 mg PRN PRN Administration Diarrhea/Loose Stools Loratadine 10 mg 05/04/20 21:00 05/04/20 20:48 Claritin PO Not Given HS VIV Losartan Potassium 100 mg 04/30/20 09:00 05/04/20 07:59 Cozaar PO 100 mg DAILY VIV Administration Saccharomyces Boulardii 250 mg 04/30/20 09:00 05/04/20 12:02 Florastor PO 250 mg DAILY VIV Administration Sodium Chloride 10 ml 04/28/20 09:00 05/04/20 20:50 Flush - Normal Saline IVF 10 ml Q12HR VIV Administration Sodium Chloride 0 ml 04/29/20 09:13 05/04/20 12:07 [place] Nasal [place] 0.65% EA NARE 1 spr TIDPRN PRN Administration Nasal Congestion Temazepam 30 mg 05/03/20 00:00 05/04/20 20:51 Restoril PO 30 mg HS PRN Administration Insomnia - Exam General - other findings: Patient is awake and alert. Eye: PERRL, anicteric sclera Heart: RRR, no murmur, no gallops Respiratory: no wheezes, no rales, no ronchi Gastrointestinal: soft, non-tender, non-distended Gastrointestinal - other findings: Wound area clean Extremities - other findings: Right arm wound Hosp A/P - Plan 84 year old patient with a history of metastatic neuroendocrine tumor, on admission on account of attempted suicide also with PE on Lovenox. She had liver mass biopsy today she is otherwise stable. -Suicidal ideation She denies any at the [facility] Sitter in place continue monitoring Should be reevaluated tomorrow prior to discharge -Metastatic neuroenocrine tumor Status post liver biopsy Resume Lovenox tomorrow Continue monitoring -PE Continue on lovenox hold prior to liver biopsy Acute encephalopathy at presentation Resolved -Right arm cellulitis improving continue doxycycline Acute hypoxic respiratory failure Was intubated for airway protection Currently post intubation and very stable. Hypertension Blood pressure stable we will monitor. History of breast and colon cancer. VTE prophylaxistherapeutic on Lovenox. Disposition. Possible home -
[2020-05-05] MEDS: Acetaminophen 325 MG TAB PO PRN (03:40)
[2020-05-05] MEDS: Levothyroxine 150 MCG TAB PO SCH (06:08)
[2020-05-05] MEDS: Losartan 25 MG TAB PO SCH (09:55)
[2020-05-05] MEDS: Saccharomyces boulardii 250 MG CAP PO SCH (09:55)
[2020-05-05] MEDS: Amlodipine 10 MG TAB PO SCH (09:56)
--- NOTE | 2020-05-05 10:01 | CT ---
PROCEDURE: CT Liver Perc Biopsy PROVIDED CLINICAL HISTORY: Metastatic liver disease. Patient with history of breast cancer as well as colon cancer. COMPARISON: CT abdomen on 04/30/2020 TECHNIQUE: The procedure including the risks and complications were explained to the patient, and informed conse nt was obtained. Patient was placed on the CT scan table in the supine position. Limited noncontrasted CT scan was obtained through the liver with grid localizer in place. An area overlying the mid axillary line right upper quadrant was marked, and the area was meticulously prepped and draped in usual sterile fashion. Skin and subcutaneous tissues were infiltrated with buffered 1% lidocaine for local anesthesia. A sma ll skin incision was made. A 17-gauge guide needle was advanced followed by axial noncontrasted CT images. This was repeated until the tip of the needle was placed at the peripheral margin of the larg est right hepatic lobe lesion. Utilizing coaxial technique, a total of two 18-gauge core needle biopsy specimens were obtained. Specimens were evaluated by pathology. Lesional tissue was obtained w ith initial biopsy. No additional biopsy specimens were requested. Inner stylette was replaced, and the needle was removed. Hemostasis was achieved with direct pressure applied for approximately 10 minutes. Follow-up CT abdomen demonstrates gas at the peripheral margin of the liver related to recent biopsy. However, no perihepatic fluid collection or findings to suggest hematoma are seen. Patient's vital signs remained stable throughout the procedure as well as immediately postprocedure. Patient tolerated the procedure well and without immediate complication . Patient was transported to her hospital room in stable condition. IMPRESSION: Technically successful CT-guided percutaneous biopsy of a right hepatic lobe lesion. Final pathology results are pending. Transcribed Date/Time: 05/05/2020 10:01 AM
[2020-05-05 10:35] LABS: #Basophils 0.1 thou/uL (0.0-0.2); #Eosinphils 0.3 thou/uL (0.0-0.7); %Basophils 0.5 % (0.0-1.0); %Eosinophils 3.5 % (0.0-10.0); Hemoglobin 11.6 g/dL (12.0-16.0); Mean Corpuscular HGB CONC 32.8 g/dL (32.0-36.0); Mean Corpuscular Hemoglobin 31.9 pg (27.0-31.0); Mean Corpuscular Volume 97.4 fL (78.0-98.0); Mean Platelet Volume 7.5 fL (7.4-10.4); Platelet Count 477 thou/uL (130-400); RBC Distribution Width 12.1 % (11.5-14.5); Red Blood Cell (RBC) Count 3.64 mill/uL (4.20-5.40); White Blood Cell (WBC) Count 9.5 thou/uL (4.8-10.8)
[2020-05-05 10:54] LABS: ALT (SGPT) 121 U/L (8-55); AST (SGOT) 84 U/L (5-34); Albumin 3.6 g/dL (3.4-4.8); Alkaline Phosphatase 155 U/L (40-110); Anion Gap 17 mmol/L (10-20); BUN (Urea Nitrogen) 22 mg/dL (9.8-20.1); Bilirubin, Total 0.4 mg/dL (0.2-1.2); Calc. Creatinine Clearance 49 mL/min (70-130); Calcium 8.8 mg/dL (7.8-10.44); Carbon Dioxide 19 mmol/L (23-31); Chloride 105 mmol/L (98-107); Estimated GFR-MDRD 49; Globulin 2.6 g/dL (2.4-3.5); Glucose 108 mg/dL (83-110); Potassium 3.9 mmol/L (3.5-5.1); Protein, Total 6.2 g/dL (6.0-8.3); Sodium 137 mmol/L (136-145)
[2020-05-05] MEDS: Bupropion 100 MG SR TAB PO SCH ×2 (12:59→20:55)
[2020-05-05] MEDS: Mag-Al 1200 mg/1200 mg/30 ML UDCUP PO PRN (12:59)
--- NOTE | 2020-05-05 20:12 | PDOC.HOSPP ---
- Subjective Encounter Date: 05/05/20 Encounter Time: 13:00 Subjective: Patient was seen and examined in bed. She feels generally good. Denied any chest pain shortness of breath. She denies abdominal pain. No bleeding noted overnight from biopsy site - Objective Vital Signs & Weight: Weight Admit Weight 168 lb Weight 167 lb 14.112 oz Most Recent Monitor Data Heart Rate from ECG 112 NIBP 161/84 NIBP BP-Mean 109 Respiration from ECG 10 SpO2 98 I&O: 05/04/20 05/05/20 05/06/20 06:59 06:59 06:59 Intake Total 1860 1230 Balance 1860 1230 Result Diagrams: 05/05/20 10:23 05/05/20 10:23 Hospitalist ROS - Review of Systems Constitutional: denies: fever, chills, sweats, weakness Respiratory: denies: cough, shortness of breath, hemoptysis, SOB with excertion Gastrointestinal: denies: nausea, vomiting, abdominal pain, diarrhea, constipation Genitourinary: denies: dysuria, frequency, hematuria - Medication Medications: Active Medications Generic Name Dose Route Start Last Admin Trade Name Freq PRN Reason Stop Dose Admin Acetaminophen 650 mg 04/30/20 04:37 05/05/20 03:40 Tylenol PO 650 mg Q4H PRN Administration Headache/Fever/Mild Pain (1-3) Al Hydroxide/Mg Hydroxide 30 ml 05/02/20 09:39 05/05/20 12:59 Maalox PO 30 ml Q6H PRN Administration Heartburn or Indigestion Amlodipine Besylate 10 mg 04/30/20 09:00 05/05/20 09:56 Norvasc PO 10 mg DAILY VIV Administration Atorvastatin Calcium 10 mg 04/29/20 21:00 05/04/20 20:48 Lipitor PO 10 mg HS VIV Administration Bupropion HCl 200 mg 04/29/20 21:00 05/05/20 12:59 Wellbutrin Sr PO 200 mg BID VIV Administration Enoxaparin Sodium 80 mg 04/29/20 21:00 05/03/20 08:42 Lovenox SC 80 mg 0900,2100 VIV Administration Hydralazine HCl 10 mg 04/24/20 19:26 05/03/20 21:07 Apresoline SLOW IVP 10 mg Q4H PRN Administration SBP GREATER THAN 160 Doxycycline Hyclate 100 mg/ 100 mls @ 100 mls/hr 05/03/20 14:00 05/05/20 16: 21 Sodium Chloride IVPB Not Given 0200,1400 VIV Labetalol HCl 10 mg 04/24/20 19:26 04/26/20 21:22 Normodyne SLOW IVP 10 mg Q4H PRN Administration Systolic BP > 180 Levothyroxine Sodium 150 mcg 05/03/20 06:00 05/05/20 06:08 Synthroid PO 150 mcg 0600 VIV Administration Loperamide HCl 2 mg 04/28/20 08:48 05/02/20 17:16 Imodium PO 2 mg PRN PRN Administration Diarrhea/Loose Stools Loratadine 10 mg 05/04/20 21:00 05/04/20 20:48 Claritin PO Not Given HS VIV Losartan Potassium 100 mg 04/30/20 09:00 05/05/20 09:55 Cozaar PO 100 mg DAILY VIV Administration Saccharomyces Boulardii 250 mg 04/30/20 09:00 05/05/20 09:55 Florastor PO 250 mg DAILY VIV Administration Sodium Chloride 10 ml 04/28/20 09:00 05/05/20 09:00 Flush - Normal Saline IVF Not Given Q12HR VIV Sodium Chloride 0 ml 04/29/20 09:13 05/04/20 12:07 [place] Nasal [place] 0.65% EA NARE 1 spr TIDPRN PRN Administration Nasal Congestion Temazepam 30 mg 05/03/20 00:00 05/04/20 20:51 Restoril PO 30 mg HS PRN Administration Insomnia - Exam Eye: PERRL, anicteric sclera Heart: RRR, no murmur, normal peripheral pulses Respiratory: no wheezes, no ronchi, normal chest expansion Gastrointestinal: soft, non-tender, non-distended, normal bowel sounds Neurological: cranial nerve grossly intact, no new deficit Hosp A/P - Plan 84 year old patient with a hisotory of metastatic neuroendocrine tumor, DVT on Lovenox, on admission on account of attempted suicide she is otherwise stable. She had hepatic biopsy day ago with no bleeding noted overnight. We will monitor and resume anticoagulation in a day. -Suicidal ideation She denies any at the [facility] Sitter in place continue monitoring Should be reevaluated tomorrow prior to discharge -Metastatic neuroenocrine tumor Status post liver biopsy Resume Lovenox tomorrow Continue monitoring -DVT Continue on lovenox hold prior to liver biopsy Acute encephalopathy at presentation Resolved -Right arm cellulitis Improving continue on doxycycline Acute hypoxic respiratory failure Was intubated for airway protection Currently post intubation and very stable. Hypertension Blood pressure stable we will monitor. History of breast and colon cancer. VTE prophylaxistherapeutic on Lovenox. Disposition. Possible home -
[2020-05-05] MEDS: Atorvastatin Calcium 10 MG TAB PO SCH (20:55)
[2020-05-05] MEDS: Doxycycline 100 MG CAP PO SCH (20:55)
[2020-05-05] MEDS: Loratadine 10 MG TAB PO SCH (20:55)
[2020-05-05] MEDS: Temazepam 15 MG CAP PO PRN (21:02)
[2020-05-06] MEDS: Acetaminophen 325 MG TAB PO PRN ×2 (02:08→10:27)
[2020-05-06] MEDS: Levothyroxine 150 MCG TAB PO SCH (06:25)
[2020-05-06 07:16] VITALS: BP 165/77; TEMP 97.8
[2020-05-06] MEDS: Bupropion 100 MG SR TAB PO SCH (10:22)
[2020-05-06] MEDS: Losartan 25 MG TAB PO SCH (10:23)
[2020-05-06] MEDS: Doxycycline 100 MG CAP PO SCH (10:23)
[2020-05-06] MEDS: Amlodipine 10 MG TAB PO SCH (10:23)
[2020-05-06] MEDS: Saccharomyces boulardii 250 MG CAP PO SCH (10:23)
[2020-05-06] MEDS: Enoxaparin Sodium 80 MG/0.8 ML SYRINGE SC SCH (10:24)
--- NOTE | 2020-05-06 11:50 | PDOC.MOPN ---
Interval History: feels well, mild left flank pain. - Vital Signs Vital Signs: Vital Signs (12 hours) Temp Pulse Resp BP Pulse Ox 05/06/20 10:23 97 05/06/20 07:14 97.8 F 97 16 165/77 H 95 Weight Admit Weight 168 lb Weight 167 lb 14.112 oz Most Recent Monitor Data Heart Rate from ECG 112 NIBP 161/84 NIBP BP-Mean 109 Respiration from ECG 10 SpO2 98 - Physical Exam General: Alert, Oriented x3, No acute distress HEENT: Atraumatic, PERRLA, EOMI, Mucous membr. moist/pink Lungs: Clear to auscultation, Normal air movement Cardiovascular: Regular rate, Normal S1, Normal S2, No murmurs, Gallops, Rubs Abdomen: Normal bowel sounds, Soft, No tenderness, No hepatospenomegaly, No masses Neurological: Normal gait, Normal speech, Strength at 5/5 X4 ext, Normal tone, Sensation intact, Cranial nerves 3-12 NL, Reflexes 2+ - Labs Result Diagrams: 05/05/20 10:23 05/05/20 10:23 Status: lab reviewed by me A/P - Problem (1) Breast cancer Current Visit: Yes Status: Acute (2) Neuroendocrine carcinoma metastatic to liver Current Visit: Yes Code(s): C7A.8 - OTHER MALIGNANT NEUROENDOCRINE TUMORS; C7B.8 - OTHER SECONDARY NEUROENDOCRINE TUMORS Status: Acute - Plan Plan: plan for dc home today follow-up clinic next week for treatment options.
--- NOTE | 2020-05-06 18:29 | CON ---
DATE OF CONSULTATION: 05/06/2020 REASON FOR CONSULTATION: Skin and soft tissue inflammatory process in the right arm. 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 Apparently, she was supposed to have a hip replacement that had been postponed because of the COVID epidemic, so she decided to commit suicide. On arrival, her BP 130/80, pulse 80, respirations 25, O2 saturation 98 and the patient was somnolent and she was given flumazenil with rapid improvement and then she became less responsive and started responding less to flumazenil repeat doses. Eventually, she was unresponsive and had to be intubated for airway protection and admitted to the ICU, so she was eventually extubated. Unfortunately, as part of the workup, she had chest CT angio, which showed multiple bilateral segmental and subsegmental pulmonary emboli, a small pericardial effusion. There was also an abnormality in the liver, concerning for metastatic disease, so she had an abdominal CT and MRI, which showed numerous metastatic lesions. Apparently, she has a history of metastatic neuroendocrine carcinoma in 2006. She underwent right colon and small-bowel resection and pathology showed moderately poorly differentiated grade 4 neuroendocrine carcinoma. She had a PET scan, which was negative after resection. Did not get any chemotherapy treatments. She was evaluated by Oncology, and Oncology felt that it was unlikely that the liver lesions were due to the breast cancer and also felt that the neuroendocrine cancer is the more likely culprit. In 2006, there was a CT-guided biopsy of a liver mass. Anyway, she had just had another biopsy, which showed metastatic neuroendocrine carcinoma. I was asked to see the patient because when she fell down during the suicidal event, she injured her right arm and developed an inflammatory process and she was given antimicrobial therapy with some improvement with doxycycline. Right now, she is biting at a bit to go home. Apparently, she has been evaluated by [facility]. She denies any headaches. No visual symptoms, sore throat, odynophagia, or dysphagia. No cough, sputum production, or chest pain. No abdominal pain. No diarrhea. No genitourinary symptoms. Usual hip pain from chronic arthritis. PAST MEDICAL HISTORY: 1. Hypertension. 2. Breast cancer, in remission. 3. Neuroendocrine carcinoma with now mets identified in the liver. 4. Hypothyroidism. 5. Sleep apnea. 6. Depression. 7. Suicidal attempt. SURGICAL HISTORY: 1. Hemicolectomy. 2. Breast lumpectomy. 3. Knee replacement. ALLERGIES: CODEINE. FAMILY HISTORY: Melanoma and CVA. SOCIAL HISTORY: Never smoker. CURRENT MEDICATIONS: 1. Norvasc. 2. Doxycycline. 3. Enoxaparin, therapeutic dose. 4. Hydralazine. 5. Temazepam. 6. Ondansetron. 7. Loratadine. PHYSICAL EXAMINATION: VITAL SIGNS: T-max 99.2, BP 160/77, pulse 97, respirations 16, and O2 saturation 95. SKIN: The area of induration measuring about 10 to 12 cm, lateral aspect of the right arm, with a central linear area of scab overlying and likely superficial laceration from the patient's fall at home. There is very mild erythema around the area. No lymphadenopathy. HEENT: Ocular movements conjugate. Oral cavity normal. NECK: Supple. LUNGS: Symmetric, clear breath sounds. HEART: S1 and S2. Regular rate. BACK: No back tenderness. ABDOMEN: No abdominal tenderness. No bladder distention. EXTREMITIES: Moves extremities equally. Pulses 1+ in dorsalis pedis. NEUROLOGIC: Awake, alert, oriented. LABORATORY DATA: White cell count 9.5, hemoglobin 11.6, and platelets 477. Sodium 137, creatinine 1.07. AST 384, ALT 121, alkaline phosphatase 155, and albumin 3.6. Serology negative for COVID. C difficile stool from the 24th was negative. ASSESSMENT: 1. Breast cancer, in remission. 2. Suicidal attempt. 3. Neuroendocrine metastatic malignancy. 4. Injury to the right arm with some inflammatory changes. DISCUSSION: The inflammatory changes are mild. This could reflect hematoma rather than infected site. I think to decrease the likelihood of transformation to an abscess, I would advise doxycycline and rifampin for about a week approximately. Follow up in the clinic. She might need surgical intervention. She has been evaluated by the [facility] and may have to [facility] depending on their results. Job ID: [id number]
== END 2020-05-06 18:45 | disposition home or self-care (01) | DRG 917 ==
LOC: CCU 19:00 → T4-B 04-27 09:49
PROVIDERS: ADMIT Internal Medicine; ATTEND Internal Medicine
PROC: 5A1945Z Respiratory Ventilation, 24-96 Consecutive Hours (ICD-10-PCS; principal; 2020-04-24)
PROC: 0BP1XDZ Removal of Intraluminal Device from Trachea, External Approach (ICD-10-PCS; 2020-04-26)
PROC: 0FB13ZX Excision of Right Lobe Liver, Percutaneous Approach, Diagnostic (ICD-10-PCS; 2020-05-04)
DX: T42.4X2A Poisoning by benzodiazepines, intentional self-harm, initial encounter (principal); G92 Toxic encephalopathy; J96.01 Acute respiratory failure with hypoxia; I26.94 Multiple subsegmental thrombotic pulmonary emboli without acute cor pulmonale; N17.9 Acute kidney failure, unspecified; M62.82 Rhabdomyolysis; E87.2 Acidosis; I31.3 Pericardial effusion (noninflammatory); C78.7 Secondary malignant neoplasm of liver and intrahepatic bile duct; C7A.8 Other malignant neuroendocrine tumors; T40.2X2A Poisoning by other opioids, intentional self-harm, initial encounter; E03.9 Hypothyroidism, unspecified; G47.33 Obstructive sleep apnea (adult) (pediatric); G89.4 Chronic pain syndrome; Z20.828 Contact with and (suspected) exposure to other viral communicable diseases; M19.90 Unspecified osteoarthritis, unspecified site; Z96.651 Presence of right artificial knee joint; N18.3 Chronic kidney disease, stage 3 (moderate); I12.9 Hypertensive chronic kidney disease with stage 1 through stage 4 chronic kidney disease, or unspecified chronic kidney disease; E83.42 Hypomagnesemia; E66.9 Obesity, unspecified; F41.9 Anxiety disorder, unspecified; F32.9 Major depressive disorder, single episode, unspecified; Z85.89 Personal history of malignant neoplasm of other organs and systems; Z85.3 Personal history of malignant neoplasm of breast; Z85.038 Personal history of other malignant neoplasm of large intestine; Z88.5 Allergy status to narcotic agent; Z88.8 Allergy status to other drugs, medicaments and biological substances
CPT/HCPCS: 36415; 36416; 36600; 47000; 71045; 71275; 74170; 74183; 77012; 80048; 80053; 80307; 82550; 82805; 83036; 83735; 84100; 84439; 84443; 84484; 85007; 85025; 85027; 85610; 85730; 87045; 87046; 87324; 87427; 87449; 87635; 88307; 88333; 88334; 88341; 88342; 88360; 93005; 93010; 94002; 94003; A9579; J0360; J1650; J2250; J3010; J3475; J3480; J3490; J7050; Q9967; S0028; U0003

== ENCOUNTER 2020-06-10 07:27 | Outpatient (CLI) | payer MEDICARE, OTHER ==
[2020-06-10 14:06] LABS: Prothrombin Time 13.5 sec (12.0-14.7)
[2020-06-10 14:15] LABS: #Eosinphils 0.1 thou/uL (0.0-0.7); #Lymphocytes 0.9 thou/uL (1.20-3.40); #Monocytes 0.6 thou/uL (0.11-0.59); #Neutrophils 4.8 thou/uL (1.40-6.50); %Basophils 0.5 % (0.0-1.0); %Eosinophils 2.1 % (0.0-10.0); %Lymphocytes 14.4 % (21.0-51.0); %Monocytes 8.6 % (0.0-10.0); %Neutrophils 74.3 % (42.0-75.0); Hemoglobin 13.5 g/dL (12.0-16.0); Mean Corpuscular HGB CONC 32.5 g/dL (32.0-36.0); Mean Corpuscular Hemoglobin 31.3 pg (27.0-31.0); Mean Corpuscular Volume 96.5 fL (78.0-98.0); Platelet Count 464 thou/uL (130-400); RBC Distribution Width 12.5 % (11.5-14.5); White Blood Cell (WBC) Count 6.4 thou/uL (4.8-10.8)
[2020-06-10 14:58] LABS: Anion Gap 17 mmol/L (10-20); BUN (Urea Nitrogen) 23 mg/dL (9.8-20.1); Calc. Creatinine Clearance 0 mL/min (70-130); Calcium 9.7 mg/dL (7.8-10.44); Carbon Dioxide 21 mmol/L (23-31); Chloride 105 mmol/L (98-107); Estimated GFR-MDRD 49; Glucose 110 mg/dL (83-110); Potassium 3.8 mmol/L (3.5-5.1); Sodium 139 mmol/L (136-145)
[2020-06-10 18:53] LABS: SARS-CoV-2 MS2 Positive; SARS-CoV-2 N Gene Negative; SARS-CoV-2 S Gene Negative; SARS-CoV-2 by NAA Not Detected (NotDetected); SARS-CoV-2 orf1ab Negative
--- NOTE | 2020-06-11 07:17 | EKG ---
Test Reason : PREOP Blood Pressure : / mmHG Vent. Rate : 100 BPM Atrial Rate : 100 BPM P-R Int : 146 ms QRS Dur : 102 ms QT Int : 362 ms P-R-T Axes : 064 -38 083 degrees QTc Int : 466 ms Sinus rhythm with occasional Premature ventricular complexes and PAC'c Left axis deviation Incomplete right bundle branch block Poor anterior R wave progression Abnormal ECG Confirmed by DR. Ruth ACE (3) on 06/11/2020 7:17:31 AM Referred By: KEITH Confirmed By:DR. Ruth ACE
== END 2020-06-10 07:28 | disposition home or self-care (01) ==
LOC: LABBT 07:27
PROVIDERS: ATTEND Orthopaedic Surgery
DX: Z01.818 Encounter for other preprocedural examination (principal); M87.9 Osteonecrosis, unspecified; Z20.828 Contact with and (suspected) exposure to other viral communicable diseases
CPT/HCPCS: 80048; 85025; 85610; 86850; 86900; 86901; 87081; 93005; U0003; 87635; 93010

== ENCOUNTER 2020-08-06 09:58 | Outpatient (CLI) | payer MEDICARE ==
[2020-08-06 12:20] LABS: #Basophils 0.1 10x3/uL (0.0-0.2); #Eosinphils 0.3 10x3/uL (0.0-0.5); #Monocytes 0.7 10x3/uL (0.0-1.1); #Neutrophils 5.3 10x3/uL (1.5-8.4); %Basophils 0.8 % (0.0-2.0); %Neutrophils 71.9 % (40.0-75.0); Hemoglobin 10.9 g/dL (12.0-16.0); Mean Corpuscular HGB CONC 31.7 G/DL (32.0-36.0); Mean Corpuscular Hemoglobin 28.6 PG (27.0-33.0); Mean Corpuscular Volume 90.3 fl (80.0-100.0); Mean Platelet Volume 11.2 fl (7.4-10.4); Platelet Count 433 10x3/uL (130-400); RBC Distribution Width 13.8 % (11.5-14.5); Red Blood Cell (RBC) Count 3.81 10x6/uL (3.90-5.20); White Blood Cell (WBC) Count 7.3 10x3/uL (4.5-11.0)
[2020-08-06 12:34] LABS: Anion Gap 16 mmol/L (10-20); BUN (Urea Nitrogen) 24 mg/dL (9.8-20.1); Calc. Creatinine Clearance 0 mL/min (70-130); Calcium 9.5 mg/dL (7.8-10.44); Carbon Dioxide 20 mmol/L (23-31); Chloride 105 mmol/L (98-107); Glucose 87 mg/dL (83-110); Sodium 137 mmol/L (136-145)
[2020-08-06 12:50] LABS: INR-International Normal Ratio 1.1; PTT 27.9 sec (22.0-33.0); Prothrombin Time 11.2 sec (9.5-12.1)
[2020-08-06 19:03] LABS: SARS-CoV-2 MS2 Positive; SARS-CoV-2 N Gene Negative; SARS-CoV-2 S Gene Negative; SARS-CoV-2 by NAA Not Detected (NotDetected); SARS-CoV-2 orf1ab Negative
== END 2020-08-06 09:59 | disposition home or self-care (01) ==
LOC: LABBT 09:58
PROVIDERS: ATTEND Orthopaedic Surgery
DX: Z01.812 Encounter for preprocedural laboratory examination (principal); Z20.828 Contact with and (suspected) exposure to other viral communicable diseases; M87.9 Osteonecrosis, unspecified
CPT/HCPCS: 80048; 85025; 85610; 85730; 87081; U0003; 87635

== ENCOUNTER 2020-08-11 06:29 | Inpatient (IN) | payer MEDICARE ==
[2020-08-10 11:58] VITALS: BMI 28.9
[2020-08-11] MEDS ORDERED: Fentanyl 100 MCG/2 ML VIAL SLOW IVP PRN (07:18)
[2020-08-11] MEDS ORDERED: Ondansetron PF 4 MG/2 ML Vial IVP PRN ×2 (07:18→09:15)
[2020-08-11] MEDS ORDERED: diphenhydrAMINE 25 MG CAP PO PRN ×2 (07:18→09:15)
[2020-08-11] MEDS ORDERED: Acetaminophen 325 MG TAB PO PRN (07:18)
[2020-08-11] MEDS ORDERED: HYDROcodone/Acetaminophen 10/325 mg Tablet PO PRN ×2 (07:18)
[2020-08-11] MEDS ORDERED: traMADol HCl 50 MG TAB PO PRN ×2 (07:18→09:15)
[2020-08-11] MEDS ORDERED: Promethazine HCl 25 MG/ML VIAL IM PRN ×3 (07:18→11:05)
[2020-08-11] MEDS ORDERED: Zolpidem Tartrate 5 MG TAB PO PRN ×2 (07:18→09:15)
[2020-08-11] MEDS ORDERED: Fentanyl 100 MCG/2 ML VIAL ONE ×3 (08:17→11:54)
[2020-08-11] MEDS ORDERED: Midazolam HCl 2 mg/2 ml Vial ONE (08:17)
[2020-08-11] MEDS ORDERED: Tranexamic Acid 1,000 MG/10 ML VIAL ONE (08:21)
[2020-08-11] MEDS ORDERED: Vancomycin 1 GM/200 ML BAG ONE (08:21)
[2020-08-11] MEDS ORDERED: Sodium Chloride 0.9% 100 ML ONE (08:21)
[2020-08-11] MEDS ORDERED: diphenhydrAMINE 50 MG/ML VIAL IVP PRN (09:15)
[2020-08-11] MEDS ORDERED: Bupivacaine 0.25% 10 ML VIAL EPIDURAL PRN (09:15)
[2020-08-11] MEDS ORDERED: Naloxone HCl 0.4 mg/ml Vial IVP PRN (09:15)
[2020-08-11] MEDS ORDERED: Naloxone HCl 0.4 mg/ml Vial IV PRN (09:15)
[2020-08-11] MEDS ORDERED: Promethazine HCl 25 MG SUPP PR PRN (09:15)
[2020-08-11] MEDS ORDERED: Hydrocerin (Eucerin) Cream 120 gm Jar TOP PRN (09:15)
[2020-08-11] MEDS ORDERED: diphenhydrAMINE 50 MG/ML VIAL IM PRN (09:15)
[2020-08-11] MEDS ORDERED: HYDROcodone/Acetaminophen 5/325 mg Tablet PO PRN (09:15)
[2020-08-11] MEDS ORDERED: Bupivacaine 0.25% HCL 30 ML VIAL ONE (10:20)
[2020-08-11] MEDS ORDERED: Ondansetron PF 4 MG/2 ML Vial ONE (10:29)
[2020-08-11] MEDS ORDERED: PROPOFOL 200 MG/20 ML VIAL ONE (10:29)
[2020-08-11] MEDS ORDERED: Lidocaine 1.5% w/Epi 1:200K 30 ML VIAL (Epid Use) ONE (10:29)
[2020-08-11] MEDS ORDERED: Dexamethasone 20 MG/5 ML VIAL ONE (10:29)
[2020-08-11] MEDS ORDERED: Rocuronium Bromide 10 MG/ML (10ML VIAL) ONE (10:29)
[2020-08-11] MEDS ORDERED: PHENYLEPHRINE-NS 100 MCG/ML 10 ML SYRINGE ONE ×2 (10:29→10:49)
[2020-08-11] MEDS ORDERED: Lidocaine 1% PF 5 ML VIAL ONE (10:29)
[2020-08-11] MEDS ORDERED: SUGAMMADEX SODIUM 200 MG/2 ML VIAL ONE (10:52)
[2020-08-11] MEDS ORDERED: Promethazine HCl 25 MG/ML VIAL SLOW IVP PRN (11:05)
[2020-08-11] MEDS ORDERED: Ondansetron HCl/PF 4 MG/2 ML Vial IVP PRN (11:05)
[2020-08-11] MEDS ORDERED: HYDROmorphone 2 MG/ML VIAL SLOW IVP PRN (11:05)
--- NOTE | 2020-08-11 11:32 | RAD ---
Exam:2 views left HISTORY: Restless left hip arthroplasty COMPARISON: None FINDINGS: Findings compatible left hip arthroplasty. Near anatomic alignment. Expected postoperative soft tissue changes IMPRESSION: Findings compatible left hip arthroplasty.
[2020-08-11] MEDS: Amlodipine 10 MG TAB PO SCH (14:43)
[2020-08-11] MEDS: Bupropion 150 MG XL TAB PO SCH (14:43)
[2020-08-11] MEDS: Losartan 25 MG TAB PO SCH (14:43)
[2020-08-11] MEDS: Aspirin 81 mg Enteric Coated Tablet PO SCH ×2 (14:43→20:50)
[2020-08-11] MEDS: Ketorolac Tromethamine 30 MG/ML VIAL IVP SCH ×3 (14:43→17:55)
[2020-08-11] MEDS: Sodium Chloride 0.9% 1,000 ML IV SCH ×2 (17:45→17:54)
[2020-08-11] MEDS: CEFAZOLIN 2 GM in Premix Bag 1 BAG IVPB SCH ×2 (17:46→23:22)
[2020-08-11] MEDS: traMADol HCl 50 MG TAB PO PRN (22:23)
[2020-08-12] MEDS: Ketorolac Tromethamine 30 MG/ML VIAL IVP SCH ×5 (01:19→21:50)
[2020-08-12] MEDS ORDERED: Labetalol HCl 100 MG/20 ML VIAL SLOW IVP PRN (02:25)
[2020-08-12] MEDS: Levothyroxine 150 MCG TAB PO SCH (05:12)
[2020-08-12] MEDS: fentaNYL Citrate/PF 500 MCG, Bupivacaine 10 ML in Sodium Chloride 0.9% 80 ML EPIDURAL SCH ×2 (05:12→20:15)
[2020-08-12] MEDS: Sodium Chloride 0.9% 1,000 ML IV SCH ×3 (06:14→23:30)
[2020-08-12 06:24] LABS: Hemoglobin 9.1 g/dL (12.0-16.0); Mean Corpuscular HGB CONC 31.8 g/dL (32.0-36.0); Mean Corpuscular Hemoglobin 29.2 pg (27.0-31.0); Mean Corpuscular Volume 91.7 fL (78.0-98.0); Mean Platelet Volume 8.8 fL (7.4-10.4); Platelet Count 277 thou/uL (130-400); RBC Distribution Width 13.4 % (11.5-14.5); Red Blood Cell (RBC) Count 3.11 mill/uL (4.20-5.40); White Blood Cell (WBC) Count 13.7 thou/uL (4.8-10.8)
[2020-08-12] MEDS: Amlodipine 10 MG TAB PO SCH (08:20)
[2020-08-12] MEDS: Aspirin 81 mg Enteric Coated Tablet PO SCH ×2 (08:20→20:14)
[2020-08-12] MEDS: Losartan 25 MG TAB PO SCH (08:21)
[2020-08-12] MEDS: Bupropion 150 MG XL TAB PO SCH (08:21)
[2020-08-12] MEDS: Senokot S 8.6-50 MG TAB PO SCH ×2 (08:24→20:14)
[2020-08-12] MEDS: Ferrous Gluconate 324 MG TAB PO SCH ×2 (08:24→17:35)
[2020-08-12] MEDS: traMADol HCl 50 MG TAB PO PRN ×3 (08:25→23:17)
[2020-08-12] MEDS: Multivitamin W/ Minerals 1 TAB PO SCH (08:26)
[2020-08-12] MEDS ORDERED: Enoxaparin Sodium 40 MG/0.4 ML SYRINGE SC SCH (09:00)
--- NOTE | 2020-08-12 12:22 | OP ---
DATE OF PROCEDURE: 08/11/2020 Dictated by Ankit Paiz PA-C, for Dr. Arturo Spears. 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 PROCEDURE PERFORMED: Hybrid left total hip arthroplasty (press-fit acetabular shell with a cemented femoral stem). [employer]ER [employer]: Ankit Paiz PA-C. The promotions assistant sales marketing co-surgeon was present through the entirety of the course, provided traction, positioning, tissue manipulation, exposure, and bleeding control as well as a concordant closure with the primary surgeon. ANESTHESIA: General via endotracheal tube, augmented with indwelling epidural. COMPONENTS USED: [employer] Trident II Tritanium cluster acetabular shell 52 mm press-fit with a 10-degree polyethylene fixed bearing insert, Accolade C 132-degree cemented size 4 hip stem with a 36-mm V40 standard offset metallic head. FINDINGS: End-stage severe degenerative bicompartmental disease with chronic hemarthrosis, large subcapital femoral head, chronic bone demineralization with a loss of flattening and mushrooming of the femoral head. The acetabulum itself was also full of scar tissue and hypertrophic synovium. Degenerative changes superimposed upon by femoral head avascular necrosis and ultimately bone . ESTIMATED BLOOD LOSS: 200 mL. DRAINS: None. SPECIMENS: None. COMPLICATIONS: None. COUNTS: Correct. INDICATIONS FOR SURGERY: Olivia is an 85-year-old white female who has had left hip, groin, and thigh pain for the last 7 to 8 years with significant amplification of pain over the last 6 months. She has elected to proceed with total hip arthroplasty as definitive treatment of her pain. PROCEDURE IN DETAIL: After informed consent was obtained in the preoperative holding area, the patient was taken to the operative suite. General anesthesia was induced. The patient was then positioned appropriately on the operating table in the lateral decubitus position, exposing the operative symptomatic side towards the ceiling. The operative extremity was then prepped and draped in usual sterile fashion. Prior to incision, a multidisciplinary time-out was called and observed. After this, a longitudinal incision was made directly 2 fingers above and below the greater trochanter and flair on the operative side. Bovie electrocautery was used to undermine the subcutaneous layer and control local bleeding. Subcutaneous fat was then cleared away, exposing the IT band, which was incised with the Bovie. This was taken up to above the greater trochanter, exposing the abductor muscles. The abductors were then reflected anteriorly all 3 layers down to the capsule. Copious capsulectomy was performed, exposing the femoral head, allowing for external rotation and dislocation maneuver to expose the neck and head. A provisional neck cut was used by the oscillating saw and the attention was then turned to acetabular preparation. The operative hip was then positioned appropriately to allow for anterior-posterior acetabular retractors to be placed. Full labrectomy was performed. Fovea was identified and the fovea was then fully exposed with Bovie electrocautery. Sequential acetabular reaming was carried up to the appropriate size and the implant was then malleted squarely into place with a good circumferential fit. The polyethylene liner was then placed, malleted squarely into place and checked for looseness, which was not present. We then turned our attention to the femoral preparation. Sequential reaming followed by sequential broaching up to the appropriate size to allow for a calcar fit and sequential trialing. Once the appropriate combination was found with internal and external rotation, Shuck being negative, allowing for about 5 mm in inferior-anterior translation without dislocation. There was no impingement anteriorly or posteriorly and the knee was then flexed, internally rotated, adducted, and no dislocation was present. Trial components were then removed and the final implant after applying a cement restrictor and cement mantle was then pressed and tapped and gently malleted into place. The cement was allowed to cure. After this was done, final femoral head was then malleted gently into place, providing a good Marroquin taper fit. Relocation maneuver was performed. Copious irrigation was carried out to the length, breadth, and depth of the wound. Primary closure of the abductor was performed with a #5 Ethibond transosseous fixation on both superior and inferior, #2s were then used to oversew the margins of the abductors. The IT band was then closed with interrupted #2 Vicryl, oversewn with a #2 Quill stitch. The subcutaneous layer was then closed using a 0 running barbed Quill stitch. The skin was closed with a subcuticular running Quill stitch and skin cement was then applied over the top. Sterile dressing was applied and the procedure terminated without any complications. The patient was awakened in the operative suite, extubated, and taken to recovery room in stable condition. Job ID: [id number]
[2020-08-12] MEDS ORDERED: Iopamidol-370 76% 500 ML 1 ML ONE (13:03)
--- NOTE | 2020-08-12 13:09 | PRG ---
DATE OF SERVICE: 08/12/2020 SUBJECTIVE: Olivia is an 85-year-old female, postoperative day 1 from a left total hip arthroplasty, which is Hybrid in nature, for an avascular necrosis of the femoral head, superimposed on osteoarthritis. She is incredibly happy and comfortable today. Her pain has been significant relieved by the surgery. She ambulated over 100 feet today. OBJECTIVE: VITAL SIGNS: Temperature 99, pulse 104, respiratory rate 18, and blood pressure is 154/90. GENERAL: She is alert and oriented to person, place, time, situation, responsive, appropriate with examiner, polite, pleasant and conversive. She just had a CT angiogram due to tachycardia. EXTREMITIES: Incision is clean. No erythema. No strikethrough. No shortening or malrotation. LABORATORY DATA: Hemoglobin and hematocrit 9.1 and 28.5. IMPRESSION: 1. An 85-year-old female postoperative day 1 left Hybrid total hip arthroplasty. 2. Tachycardia. 3. Asymptomatic postoperative hemorrhagic anemia. PLAN: 1. Continue current care. Give consideration to recheck hemoglobin and hematocrit and see if her hemoglobin drops any further. She may not be at [facility] at this point. 2. Observe for hemorrhage and pain control. We will consider discharge tomorrow, but let us see what her hemoglobin and hematocrit show. Job ID: [id number]
--- NOTE | 2020-08-12 13:47 | CON ---
DATE OF CONSULTATION: PRIMARY CARE PROVIDER: Patricia Henderson MD CHIEF COMPLAINT: Palpitations. HISTORY OF PRESENT ILLNESS: Ms. Tomlinson is a pleasant 85-year-old lady, who was seen at [facility] on August 12, 2020. She underwent left hip arthroplasty on August 11, 2020. She was on apixaban prior to this hospitalization for a history of pulmonary embolism. She stopped apixaban for 1 week prior to this surgery. She reports that her hip feels better following surgery. However, overnight she had palpitations. She was also found to be tachycardic. Electrocardiogram showed sinus tachycardia. Hospitalist Service was consulted for further management of medical comorbidities. REVIEW OF SYSTEMS: All systems were reviewed and found to be negative except for the pertinent positives mentioned above. PAST MEDICAL HISTORY: Hypertension, history of breast cancer, history of colon cancer, hypothyroidism, degenerative joint disease, obstructive sleep apnea syndrome, chronic pain syndrome, and pulmonary embolism. PAST SURGICAL HISTORY: Right knee replacement, colon cancer resection, and surgery for breast cancer. SOCIAL HISTORY: No history of tobacco use, alcohol use, or recreational drug use. FAMILY HISTORY: Significant for hypertension and stroke. ALLERGIES: CODEINE AND PENTAZOCINE. HOME MEDICATIONS: 1. Bupropion 300 mg daily. 2. Losartan 100 mg daily. 3. Amlodipine 10 mg daily. 4. Seroquel 50 mg at bedtime. 5. Synthroid 150 mcg daily. 6. Tramadol 50 mg daily. PHYSICAL EXAMINATION: GENERAL: On examination, Ms. Tomlinson is awake and alert, not in acute distress. VITAL SIGNS: Blood pressure is 154/90, pulse 104, respiratory rate 18, oxygen saturation 99% on 5 L of oxygen, and temperature is 99 degrees Fahrenheit. EYES: No scleral icterus, no conjunctival pallor. ENT: Moist mucosal membranes. No oropharyngeal erythema or exudates. NECK: Supple, nontender, trachea is midline. RESPIRATORY: Accessory muscles of breathing are not active. Chest wall movements are symmetric bilaterally. Lungs are clear to auscultation without wheeze, rhonchi, or crepitations. CARDIOVASCULAR: S1 and S2 are heard, tachycardic and regular. Peripheral pulses palpable. ABDOMEN: Soft, nontender, bowel sounds are heard. NEUROLOGIC: Cranial nerves 2 through 12 are intact. MUSCULOSKELETAL: Status post left hip arthroplasty. SKIN: No rashes. PSYCHIATRIC: Normal mood, normal affect, the patient is oriented to person, place, and time. LABS AND INVESTIGATIONS: Ms. Tomlinson's labs and investigations were reviewed. She has leukocytosis with 13,700 white cells. Hemoglobin is 9.1, it was 10.9 on August 06, 2020. Electrocardiogram shows normal sinus rhythm, no ST changes to suggest an acute coronary syndrome. ASSESSMENT AND PLAN: Ms. Tomlinson is a pleasant 85-year-old lady who was seen at [facility] on August 12, 2020. Her problem list includes: 1. Sinus tachycardia: Etiology is unclear, given her history of pulmonary embolism in April 2020 for which she was on anticoagulation but discontinued for 1 week prior to surgery, she needs a CT angiogram of the chest to rule out pulmonary embolism. We will request the same. Further management depending on the outcome of the test. 2. Hypertension: Continue home medications, monitor vital signs and titrate antihypertensives as needed. 3. Hypothyroidism: Continue Synthroid. Many thanks for allowing me to participate in your patient's care. Please feel free to contact me with any questions or concerns. LEVEL OF RISK: Moderate. LEVEL OF COMPLEXITY: Moderate. Job ID: [id number]
--- NOTE | 2020-08-12 13:56 | CT ---
CT ANGIO OF CHEST PERFORMED WITH INTRAVENOUS CONTRAST ENHANCEMENT WITH 3D RECONSTRUCTIONS: Date: 08/12/2020 HISTORY: Patient has a history of pulmonary emboli. Recent hip replacement. Concern for recurrent emboli. Also , history of breast and colon cancer. FINDINGS: The lungs are clear of infiltrates. There is linear scarring in both lung bases. No significant mediastinal or hilar adenopathy. A very tiny pericardial effusion is seen. Coronary ca lcifications are present. There is good pulmonary artery opacification. There is no CT evidence for pulmonary embolus. Thoracic aorta is normal in caliber. Bilateral breast augmentation is noted. Liver lesions are stable. IMPRESSION: 1. No CT evidence for pulmonary embolus. 2. Stable liver lesions. POS: KARTIK
[2020-08-12 19:30] LABS: Hemoglobin 9.3 g/dL (12.0-16.0)
[2020-08-12 21:19] LABS: Hemoglobin 8.9 g/dL (12.0-16.0)
[2020-08-13] MEDS: Ketorolac Tromethamine 30 MG/ML VIAL IVP SCH (04:45)
[2020-08-13] MEDS: Levothyroxine 150 MCG TAB PO SCH (05:38)
[2020-08-13 05:48] LABS: Hemoglobin 8.7 g/dL (12.0-16.0); Mean Corpuscular HGB CONC 32.9 g/dL (32.0-36.0); Mean Corpuscular Hemoglobin 30.1 pg (27.0-31.0); Mean Corpuscular Volume 91.4 fL (78.0-98.0); Mean Platelet Volume 8.8 fL (7.4-10.4); Platelet Count 229 thou/uL (130-400); RBC Distribution Width 13.5 % (11.5-14.5); Red Blood Cell (RBC) Count 2.89 mill/uL (4.20-5.40); White Blood Cell (WBC) Count 12.3 thou/uL (4.8-10.8)
[2020-08-13] MEDS: Senokot S 8.6-50 MG TAB PO SCH ×3 (08:04→20:17)
[2020-08-13] MEDS: Aspirin 81 mg Enteric Coated Tablet PO SCH ×2 (08:04→20:09)
[2020-08-13] MEDS: Losartan 25 MG TAB PO SCH (08:05)
[2020-08-13] MEDS: Bupropion 150 MG XL TAB PO SCH (08:05)
[2020-08-13] MEDS: Amlodipine 10 MG TAB PO SCH (08:05)
[2020-08-13] MEDS: Ferrous Gluconate 324 MG TAB PO SCH ×2 (08:06→17:15)
[2020-08-13] MEDS: Multivitamin W/ Minerals 1 TAB PO SCH (08:06)
[2020-08-13] MEDS: traMADol HCl 50 MG TAB PO PRN ×2 (08:07→14:44)
--- NOTE | 2020-08-13 11:07 | PRG ---
DATE OF SERVICE: 08/13/2020 SUBJECTIVE: Olivia is an 85-year-old female, postop day 2 from a left total hip arthroplasty. She is feeling rather spry yesterday, but this morning she is not quite . She feels weak and thready as she describes it and she is tired and she has had some heart rates, which raised concerns and obtained EKG yesterday evening as well as CT angiogram of heart by Medicine team who is also following. Dr. Yan looked at the patient yesterday and obtained the studies. She was in sinus tach and CT angiogram of the chest was negative to rule out pulmonary embolism. OBJECTIVE: She is alert, responsive, appropriate, but a little somnolent and stoic. Incision is clean, no malrotation, no shortening, no strike through or erythema. She is neurovascularly intact in the left lower extremity. Heart rate is 120, pulse 127/69, respiratory rate 16, O2 saturation 96% on room air, blood pressure is 127/69. LABORATORY DATA: Hemoglobin and hematocrit as of yesterday were 9.3, 28.1, this morning are 8.7 and 26.4. IMPRESSION: 1. Sinus tachycardia, etiology unclear. 2. Mild anemia, but I do not think this is contributing to the tachycardia as she does not become hypotensive with standing. 3. Hypertension. 4. Advanced age, 85-year-old female, postop day 2, left total hip arthroplasty. PLAN: I am a little concerned that her feeling of weakness and listlessness may have something to do with her tachycardia. I would like to observe her for another night, hold discharge at this time. Plan on her transferring to tomorrow morning if she is symptomatically better. Job ID: [id number]
[2020-08-13] MEDS: Sodium Chloride 0.9% 1,000 ML IV SCH ×2 (11:08→19:40)
--- NOTE | 2020-08-13 18:14 | PDOC.HOSPP ---
- Subjective Encounter Date: 08/13/20 Encounter Time: 10:30 Subjective: Patient seen for follow-up regarding hyperthyroidism. Denies chest pain or shortness of breath. - Objective Vital Signs & Weight: Vital Signs (12 hours) Temp Pulse Pulse Resp BP BP BP 08/13/20 16:06 98.4 F 119 H 16 128/80 08/13/20 11:09 99.0 F 111 H 16 08/13/20 10:31 95 103/59 L 08/13/20 08:05 120 H 127/69 08/13/20 08:00 08/13/20 07:54 98.7 F 120 H 16 127/69 BP Pulse Ox 08/13/20 16:06 93 L 08/13/20 11:09 108/56 L 94 L 08/13/20 10:31 08/13/20 08:05 08/13/20 08:00 96 08/13/20 07:54 96 Weight Admit Weight 153 lb Weight 153 lb I&O: 08/12/20 08/13/20 08/14/20 06:59 06:59 06:59 Intake Total 800 1520 Output Total 3250 675 Balance -2450 845 Result Diagrams: 08/13/20 05:25 Additional Labs: I reviewed patient's labs and [facility] Hospitalist ROS - Review of Systems Cardiovascular: denies: chest pain, palpitations, orthopnea, paroxysmal noc. dyspnea, edema, light headedness Genitourinary: denies: dysuria, frequency, incontinence, hematuria, retention - Medication Medications: Active Medications Generic Name Dose Route Start Last Admin Trade Name Freq PRN Reason Stop Dose Admin Amlodipine Besylate 10 mg 08/11/20 09:00 08/13/20 08:05 Amlodipine 10 Mg Tab PO 10 mg DAILY VIV Administration Aspirin 81 mg 08/11/20 09:00 08/13/20 08:04 Aspirin 81 Mg Enteric Coated Tablet PO 81 mg BID VIV Administration Bupropion HCl 300 mg 08/11/20 09:00 08/13/20 08:05 Bupropion 150 Mg Xl Tab PO 300 mg QAM VIV Administration Ferrous Gluconate 324 mg 08/12/20 08:00 08/13/20 17:15 Ferrous Gluconate 324 Mg Tab PO 324 mg BID-WM VIV Administration Sodium Chloride 1,000 mls @ 100 mls/hr 08/11/20 07:30 12/10/20 11:08 Normal Saline 0.9% IV Not Given .Q10H VIV Fentanyl Citrate 500 mcg/ 100 mls @ 6 mls/hr 08/11/20 09:15 08/12/20 20:15 Bupivacaine HCl 10 ml/ Sodium EPIDURAL 100 mls Chloride INF VIV Administration Iron/Minerals/Multivitamins 1 tab 08/12/20 09:00 08/13/20 08:06 Multivitamin W/ Minerals 1 Tab PO 1 tab DAILY VIV Administration Losartan Potassium 100 mg 08/11/20 09:00 08/13/20 08:05 Losartan 25 Mg Tab PO 100 mg DAILY VIV Administration Quetiapine Fumarate 50 mg 08/11/20 21:00 08/12/20 20:14 Quetiapine Fumarate 25 Mg Tab PO 50 mg HS VIV Administration Senna/Docusate Sodium 2 tab 08/12/20 09:00 08/13/20 08:04 Senokot S 8.6-50 Mg Tab PO 2 tab BID VIV Administration Tramadol HCl 100 mg 08/11/20 09:15 08/13/20 14:44 Tramadol Hcl 50 Mg Tab PO 100 mg Q6H PRN Administration Moderate Pain 4-6 - Exam General Appearance: awake alert Eye: anicteric sclera ENT: moist mucosa Neck: supple Heart: RRR Respiratory: CTAB Gastrointestinal: soft, non-tender Psychiatric: normal affect, normal behavior Hosp A/P (1) Hyperthyroidism Code(s): E05.90 - THYROTOXICOSIS, UNSP WITHOUT THYROTOXIC CRISIS OR STORM Status: Acute (2) Sinus tachycardia Code(s): R00.0 - TACHYCARDIA, UNSPECIFIED Status: Acute (3) Hypertension Code(s): I10 - ESSENTIAL (PRIMARY) HYPERTENSION Status: Chronic - Plan PT/OT Hypertension controlled and stable. Decrease Synthroid 200 mcg daily. Patient to have her thyroid profile checked through primary care provider's office in 6 weeks.
[2020-08-13] MEDS: HYDROcodone/Acetaminophen 5/325 mg Tablet PO PRN (20:10)
[2020-08-14] MEDS: Sodium Chloride 0.9% 1,000 ML IV SCH ×2 (04:30→16:23)
[2020-08-14 05:43] LABS: Mean Corpuscular HGB CONC 31.8 g/dL (32.0-36.0); Mean Corpuscular Hemoglobin 29.1 pg (27.0-31.0); Mean Corpuscular Volume 91.7 fL (78.0-98.0); Mean Platelet Volume 8.6 fL (7.4-10.4); Platelet Count 236 thou/uL (130-400); RBC Distribution Width 13.5 % (11.5-14.5); Red Blood Cell (RBC) Count 3.08 mill/uL (4.20-5.40); White Blood Cell (WBC) Count 10.8 thou/uL (4.8-10.8)
[2020-08-14] MEDS ORDERED: Levothyroxine Sodium 100 MCG TAB PO SCH (06:00)
[2020-08-14] MEDS: Losartan 25 MG TAB PO SCH (08:19)
[2020-08-14] MEDS: Amlodipine 10 MG TAB PO SCH (08:19)
[2020-08-14] MEDS: Bupropion 150 MG XL TAB PO SCH (08:19)
[2020-08-14] MEDS: Aspirin 81 mg Enteric Coated Tablet PO SCH (08:19)
[2020-08-14] MEDS: Ferrous Gluconate 324 MG TAB PO SCH (08:20)
[2020-08-14] MEDS: Multivitamin W/ Minerals 1 TAB PO SCH (08:20)
[2020-08-14] MEDS: Senokot S 8.6-50 MG TAB PO SCH (08:23)
[2020-08-14] MEDS: HYDROcodone/Acetaminophen 5/325 mg Tablet PO PRN ×2 (10:53→14:59)
[2020-08-14 16:22] VITALS: BP 121/60; TEMP 98.8
== END 2020-08-14 16:40 | DRG 470 ==
LOC: SJJU 06:29
PROVIDERS: ADMIT Orthopaedic Surgery; ATTEND Orthopaedic Surgery
PROC: 0SRB029 Replacement of Left Hip Joint with Metal on Polyethylene Synthetic Substitute, Cemented, Open Approach (ICD-10-PCS; principal; 2020-08-11)
DX: M16.12 Unilateral primary osteoarthritis, left hip (principal); M87.852 Other osteonecrosis, left femur; D62 Acute posthemorrhagic anemia; R00.0 Tachycardia, unspecified; I10 Essential (primary) hypertension; G89.4 Chronic pain syndrome; Z96.651 Presence of right artificial knee joint; E05.90 Thyrotoxicosis, unspecified without thyrotoxic crisis or storm; G47.33 Obstructive sleep apnea (adult) (pediatric); Z86.711 Personal history of pulmonary embolism; Z85.038 Personal history of other malignant neoplasm of large intestine; Z88.6 Allergy status to analgesic agent; Z88.8 Allergy status to other drugs, medicaments and biological substances; Z79.890 Hormone replacement therapy; Z79.899 Other long term (current) drug therapy; Z90.49 Acquired absence of other specified parts of digestive tract; Z20.828 Contact with and (suspected) exposure to other viral communicable diseases
CPT/HCPCS: 36415; 71275; 84439; 84443; 85027; 86850; 86900; 86901; 93005; 93010; C1713; C1776; J0690; J1100; J1650; J1885; J2001; J2250; J2405; J2704; J3010; J3370; J3490; Q9967; S0020

== ENCOUNTER 2022-09-18 10:15 | Inpatient (IN) | payer MEDICARE, OTHER ==
[2022-09-18 11:02] LABS: #Lymphocytes 0.9 thou/uL (1.20-3.40); #Monocytes 1.9 thou/uL (0.11-0.59); #Neutrophils 11.6 thou/uL (1.40-6.50); %Basophils 0.3 % (0.0-1.0); %Eosinophils 0.1 % (0.0-10.0); %Neutrophils 80.6 % (42.0-75.0); Hemoglobin 13.6 g/dL (12.0-16.0); Mean Corpuscular HGB CONC 32.8 g/dL (32.0-36.0); Mean Corpuscular Volume 94.6 fl (78.0-98.0); Mean Platelet Volume 9.6 fL (7.4-10.4); Platelet Count 313 10x3/uL (130-400); RBC Distribution Width 14.4 % (11.5-14.5); Red Blood Cell (RBC) Count 4.38 mill/uL (4.20-5.40); White Blood Cell (WBC) Count 14.4 10x3/uL (4.8-10.8)
[2022-09-18] MEDS ORDERED: Magnesium 2 GM/50 ML BAG (IN WATER) ONE (11:17)
[2022-09-18] MEDS ORDERED: Diltiazem 125 MG/25 ML ONE (11:17)
[2022-09-18] MEDS ORDERED: Ondansetron PF 4 MG/2 ML Vial ONE (11:17)
[2022-09-18] MEDS ORDERED: Digoxin 0.25 MG TAB ONE (11:17)
[2022-09-18] MEDS ORDERED: Furosemide 40 MG/4 ML VIAL ONE ×2 (11:17→14:50)
[2022-09-18] MEDS ORDERED: Digoxin 0.5 MG/2 ML AMP ONE (11:18)
[2022-09-18 11:23] LABS: ALT (SGPT) 635 U/L (8-55); AST (SGOT) 523 U/L (5-34); Albumin 3.7 g/dL (3.4-4.8); Alkaline Phosphatase 351 U/L (40-110); Anion Gap 22 mmol/L (10-20); BUN (Urea Nitrogen) 59 mg/dL (9.8-20.1); Bilirubin, Total 1.8 mg/dL (0.2-1.2); Calc. Creatinine Clearance 0 mL/min (70-130); Calcium 8.9 mg/dL (7.8-10.44); Carbon Dioxide 14 mmol/L (23-31); Chloride 109 mmol/L (98-107); Estimated GFR 23; Globulin 3.6 g/dL (2.4-3.5); Glucose 124 mg/dL (83-110); Protein, Total 7.3 g/dL (5.8-8.1); Sodium 141 mmol/L (136-145)
[2022-09-18 11:43] LABS: CKMB 2.6 ng/mL (0-6.6)
[2022-09-18 12:11] LABS: Bacteria/HPF 1+ HPF (None Seen); Bilirubin 1+ (Negative); Blood, Urine Negative (Negative); Clarity Clear (Clear); Glucose, Urine (Dipstick) Normal (Negative); Ketone, Urine Negative (Negative); Leukocyte Negative Leu/uL (Negative); Nitrite Negative (Negative); Protein, Urine (Dipstick) 50 mg/dL (Neg-Trace); RBC/HPF 0-3 HPF (0-3); Specific Gravity, Urine 1.021 (1.002-1.036); Squamous Epithelial None Seen HPF (0-3); WBC/HPF 0-3 HPF (0-3); pH, Urine 5.5 (5.0-9.0)
[2022-09-18 12:16] LABS: INR-International Normal Ratio 1.6; PTT 33.5 sec (22.9-36.1); Prothrombin Time 20.1 sec (12.0-14.7)
[2022-09-18] MEDS ORDERED: Heparin 10,000 UNITS/ 10 ML VIAL ONE (12:45)
[2022-09-18] MEDS ORDERED: Heparin 25,000 units/D5W 500 ML ONE (12:45)
[2022-09-18] MEDS ORDERED: Ondansetron PF 4 MG/2 ML Vial IVP PRN (13:49)
[2022-09-18] MEDS ORDERED: Diltiazem 125 MG in Sodium Chloride 0.9% 100 ML IVPB SCH ×2 (14:00→18:00)
[2022-09-18] MEDS: Furosemide 40 MG/4 ML VIAL SLOW IVP SCH (14:45)
[2022-09-18 15:16] LABS: Troponin I 0.153 ng/mL (< 0.028)
[2022-09-18 16:40] LABS: Creatinine, Urine 108.55 mg/dL (47-110); Protein, Urine Random Quant 65 mg/dL (1-14); Sodium, Urine Less than 20 mmol/L (Not Available); Urea Nitrogen, Random Urine 1005 mg/dl
[2022-09-18 17:06] VITALS: BMI 27.1
[2022-09-18] MEDS ORDERED: Amiodarone 200 MG TAB PO SCH (18:15)
[2022-09-18] MEDS: Apixaban 5 MG TAB PO SCH (18:25)
[2022-09-18 18:29] LABS: INR-International Normal Ratio 1.6; Prothrombin Time 19.5 sec (12.0-14.7)
[2022-09-18 18:30] LABS: PTT 64.7 sec (22.9-36.1)
[2022-09-18 18:42] LABS: Troponin I 0.149 ng/mL (< 0.028)
[2022-09-18] MEDS: Sodium Bicarbonate Tab 325 MG TAB PO SCH (21:02)
[2022-09-18] MEDS: Mirtazapine 15 MG Soltab PO SCH (21:03)
[2022-09-19 03:58] LABS: #Eosinphils 0.3 thou/uL (0.0-0.7); #Lymphocytes 1.3 thou/uL (1.20-3.40); #Monocytes 1.8 thou/uL (0.11-0.59); #Neutrophils 10.2 thou/uL (1.40-6.50); %Basophils 0.3 % (0.0-1.0); %Eosinophils 2.2 % (0.0-10.0); %Lymphocytes 9.4 % (21.0-51.0); %Monocytes 13.3 % (0.0-10.0); %Neutrophils 74.8 % (42.0-75.0); Hemoglobin 11.7 g/dL (12.0-16.0); Mean Corpuscular HGB CONC 31.7 g/dL (32.0-36.0); Mean Corpuscular Hemoglobin 30.1 pg (27.0-31.0); Mean Corpuscular Volume 94.8 fl (78.0-98.0); Mean Platelet Volume 8.9 fL (7.4-10.4); Platelet Count 299 10x3/uL (130-400); RBC Distribution Width 14.2 % (11.5-14.5); Red Blood Cell (RBC) Count 3.91 mill/uL (4.20-5.40); White Blood Cell (WBC) Count 13.7 10x3/uL (4.8-10.8)
[2022-09-19 04:20] LABS: ALT (SGPT) 577 U/L (8-55); AST (SGOT) 380 U/L (5-34); Albumin 3.2 g/dL (3.4-4.8); Alkaline Phosphatase 299 U/L (40-110); Anion Gap 17 mmol/L (10-20); BUN (Urea Nitrogen) 57 mg/dL (9.8-20.1); Bilirubin, Total 1.4 mg/dL (0.2-1.2); Calc. Creatinine Clearance 23 mL/min (70-130); Calcium 8.2 mg/dL (7.8-10.44); Carbon Dioxide 22 mmol/L (23-31); Chloride 105 mmol/L (98-107); Estimated GFR 26; Globulin 2.9 g/dL (2.4-3.5); Glucose 91 mg/dL (83-110); Potassium 2.9 mmol/L (3.5-5.1); Protein, Total 6.1 g/dL (5.8-8.1); Sodium 141 mmol/L (136-145)
[2022-09-19] MEDS: Furosemide 40 MG/4 ML VIAL SLOW IVP SCH ×2 (05:34→14:42)
[2022-09-19] MEDS: Levothyroxine Sodium 100 MCG TAB PO SCH (05:43)
[2022-09-19 05:45] LABS: Magnesium 2.2 mg/dL (1.6-2.6)
[2022-09-19] MEDS ORDERED: Metoprolol Tartrate 5 MG/5 ML VIAL IVP PRN (05:54)
[2022-09-19] MEDS ORDERED: Potassium Chloride 20 MEQ TAB PO SCH ×2 (06:00→10:00)
[2022-09-19] MEDS ORDERED: Electrolyte Replacement Protocol 1 EACH FS SCH (06:00)
[2022-09-19] MEDS: Sodium Bicarbonate Tab 325 MG TAB PO SCH ×2 (08:46→19:56)
[2022-09-19] MEDS: Apixaban 5 MG TAB PO SCH ×2 (08:46→19:55)
[2022-09-19] MEDS: Amiodarone 200 MG TAB PO SCH ×3 (08:46→19:55)
[2022-09-19] MEDS: Spironolactone 25 MG TAB PO SCH (08:47)
[2022-09-19] MEDS: Mirtazapine 15 MG Soltab PO SCH (19:56)
[2022-09-19] MEDS: Diltiazem 125 MG in Sodium Chloride 0.9% 100 ML IVPB SCH (22:15)
[2022-09-19] MEDS ORDERED: traZODone HCl 50 MG TAB PO SCH (22:45)
[2022-09-20] MEDS: Levothyroxine Sodium 100 MCG TAB PO SCH (06:09)
[2022-09-20] MEDS: Furosemide 40 MG/4 ML VIAL SLOW IVP SCH ×2 (07:02→14:50)
[2022-09-20 07:42] LABS: Anion Gap 14 mmol/L (10-20); BUN (Urea Nitrogen) 44 mg/dL (9.8-20.1); Calc. Creatinine Clearance 29 mL/min (70-130); Calcium 8.2 mg/dL (7.8-10.44); Carbon Dioxide 25 mmol/L (23-31); Chloride 106 mmol/L (98-107); Estimated GFR 35; Glucose 102 mg/dL (83-110); Magnesium 1.8 mg/dL (1.6-2.6); Potassium 3.5 mmol/L (3.5-5.1); Sodium 141 mmol/L (136-145)
[2022-09-20 07:57] LABS: Hemoglobin 10.7 g/dL (12.0-16.0); Mean Corpuscular HGB CONC 32.1 g/dL (32.0-36.0); Mean Corpuscular Hemoglobin 30.7 pg (27.0-31.0); Mean Corpuscular Volume 95.7 fl (78.0-98.0); Mean Platelet Volume 8.6 fL (7.4-10.4); Platelet Count 277 10x3/uL (130-400); RBC Distribution Width 13.9 % (11.5-14.5); White Blood Cell (WBC) Count 12.5 10x3/uL (4.8-10.8)
[2022-09-20] MEDS: Amiodarone 200 MG TAB PO SCH ×3 (08:20→20:21)
[2022-09-20] MEDS: Sodium Bicarbonate Tab 325 MG TAB PO SCH (08:20)
[2022-09-20] MEDS: Losartan 25 MG TAB PO SCH (08:21)
[2022-09-20] MEDS: Apixaban 5 MG TAB PO SCH ×2 (08:22→20:22)
[2022-09-20] MEDS: Spironolactone 25 MG TAB PO SCH ×2 (08:23→09:38)
[2022-09-20] MEDS: Bupropion 150 MG XL TAB PO SCH (08:23)
[2022-09-20] MEDS ORDERED: Potassium Chloride 20 MEQ TAB PO SCH (08:30)
[2022-09-20] MEDS ORDERED: hydrALAZINE 25 MG TAB PO SCH (09:00)
[2022-09-20 09:52] LABS: Band 2 % (5-11); Eosinophils 2 % (0-10); Lymphocytes 9 % (21-51); MDiff Complete? YES; Monocytes 11 % (0-10); Neutrophil 76 % (42-75); RBC Morphology Normal
[2022-09-20] MEDS: Temazepam 15 MG CAP PO PRN (20:21)
[2022-09-20] MEDS ORDERED: Atorvastatin Calcium 20 MG TAB PO SCH (21:00)
[2022-09-20] MEDS: Diltiazem 125 MG in Sodium Chloride 0.9% 100 ML IVPB SCH (21:36)
[2022-09-21] MEDS: Levothyroxine Sodium 100 MCG TAB PO SCH (05:56)
[2022-09-21] MEDS: Furosemide 40 MG/4 ML VIAL SLOW IVP SCH (05:56)
[2022-09-21 06:34] LABS: ALT (SGPT) 271 U/L (8-55); AST (SGOT) 78 U/L (5-34); Alkaline Phosphatase 279 U/L (40-110); Anion Gap 14 mmol/L (10-20); BUN (Urea Nitrogen) 38 mg/dL (9.8-20.1); Bilirubin, Total 1.2 mg/dL (0.2-1.2); Calc. Creatinine Clearance 31 mL/min (70-130); Calcium 8.3 mg/dL (7.8-10.44); Carbon Dioxide 26 mmol/L (23-31); Chloride 104 mmol/L (98-107); Estimated GFR 38; Globulin 2.9 g/dL (2.4-3.5); Glucose 87 mg/dL (83-110); Protein, Total 5.9 g/dL (5.8-8.1); Sodium 140 mmol/L (136-145)
[2022-09-21] MEDS: Bupropion 150 MG XL TAB PO SCH (07:55)
[2022-09-21] MEDS: Spironolactone 25 MG TAB PO SCH (07:55)
[2022-09-21] MEDS: Losartan 25 MG TAB PO SCH (07:55)
[2022-09-21] MEDS: Apixaban 5 MG TAB PO SCH ×2 (07:56→20:21)
[2022-09-21] MEDS: Amiodarone 200 MG TAB PO SCH ×3 (07:56→20:21)
[2022-09-21 12:16] LABS: Anion Gap 14 mmol/L (10-20); BUN (Urea Nitrogen) 40 mg/dL (9.8-20.1); Calc. Creatinine Clearance 29 mL/min (70-130); Calcium 8.7 mg/dL (7.8-10.44); Carbon Dioxide 29 mmol/L (23-31); Chloride 100 mmol/L (98-107); Estimated GFR 35; Glucose 117 mg/dL (83-110); Magnesium 1.6 mg/dL (1.6-2.6); Potassium 4.1 mmol/L (3.5-5.1); Sodium 139 mmol/L (136-145)
[2022-09-21] MEDS: Furosemide 40 MG TAB PO SCH (14:46)
[2022-09-21] MEDS: Temazepam 15 MG CAP PO PRN (20:21)
[2022-09-22 02:58] LABS: Magnesium 1.5 mg/dL (1.6-2.6)
[2022-09-22] MEDS ORDERED: Electrolyte Replacement Protocol FS PRN (03:30)
[2022-09-22] MEDS ORDERED: Magnesium 2 GM/50 ML(in water) 2 GM in Premix Bag 1 BAG IVPB SCH (03:30)
[2022-09-22] MEDS: Levothyroxine Sodium 100 MCG TAB PO SCH (05:38)
[2022-09-22] MEDS: Diltiazem 125 MG in Sodium Chloride 0.9% 100 ML IVPB SCH (06:04)
[2022-09-22] MEDS: Losartan 25 MG TAB PO SCH (07:36)
[2022-09-22] MEDS: Spironolactone 25 MG TAB PO SCH (07:37)
[2022-09-22] MEDS: Amiodarone 200 MG TAB PO SCH ×3 (07:37→20:26)
[2022-09-22] MEDS: Apixaban 5 MG TAB PO SCH ×2 (07:37→20:26)
[2022-09-22] MEDS: Bupropion 150 MG XL TAB PO SCH (07:38)
[2022-09-22] MEDS: Furosemide 40 MG TAB PO SCH ×2 (07:38→16:17)
[2022-09-22 08:44] LABS: Albumin 2.9 g/dL (3.4-4.8); Anion Gap 16 mmol/L (10-20); BUN (Urea Nitrogen) 41 mg/dL (9.8-20.1); BUN/Creatinine Ratio 28.47; Calc. Creatinine Clearance 29 mL/min (70-130); Calcium 8.2 mg/dL (7.8-10.44); Carbon Dioxide 26 mmol/L (23-31); Chloride 100 mmol/L (98-107); Estimated GFR 36; Glucose 90 mg/dL (83-110); Phosphorus 3.4 mg/dL (2.3-4.7); Sodium 138 mmol/L (136-145)
[2022-09-22] MEDS ORDERED: Lidocaine 1% PF 5 ML VIAL ONE (09:31)
[2022-09-22] MEDS ORDERED: PROPOFOL 200 MG/20 ML VIAL ONE (09:31)
[2022-09-22] MEDS ORDERED: Diltiazem 125 MG in Sodium Chloride 0.9% 100 ML IVPB SCH (13:00)
[2022-09-22] MEDS: Temazepam 15 MG CAP PO PRN (20:26)
[2022-09-23 04:24] LABS: #Eosinphils 0.4 thou/uL (0.0-0.7); #Lymphocytes 1.5 thou/uL (1.20-3.40); #Monocytes 1.7 thou/uL (0.11-0.59); #Neutrophils 9.4 thou/uL (1.40-6.50); %Basophils 0.2 % (0.0-1.0); %Lymphocytes 11.5 % (21.0-51.0); %Neutrophils 72.3 % (42.0-75.0); Hemoglobin 11.4 g/dL (12.0-16.0); Mean Corpuscular HGB CONC 31.6 g/dL (32.0-36.0); Mean Corpuscular Hemoglobin 30.3 pg (27.0-31.0); Platelet Count 297 10x3/uL (130-400); RBC Distribution Width 14.2 % (11.5-14.5); Red Blood Cell (RBC) Count 3.75 mill/uL (4.20-5.40)
[2022-09-23 04:52] LABS: Anion Gap 16 mmol/L (10-20); BUN (Urea Nitrogen) 36 mg/dL (9.8-20.1); BUN/Creatinine Ratio 27.91; Calc. Creatinine Clearance 33 mL/min (70-130); Calcium 9.3 mg/dL (7.8-10.44); Carbon Dioxide 27 mmol/L (23-31); Chloride 98 mmol/L (98-107); Estimated GFR 41; Glucose 92 mg/dL (83-110); Magnesium 1.9 mg/dL (1.6-2.6); Phosphorus 3.5 mg/dL (2.3-4.7); Potassium 4.1 mmol/L (3.5-5.1); Sodium 137 mmol/L (136-145)
[2022-09-23] MEDS: Levothyroxine Sodium 100 MCG TAB PO SCH (05:56)
[2022-09-23] MEDS ORDERED: Magnesium 2 GM/50 ML(in water) 2 GM in Premix Bag 1 BAG IVPB SCH (08:00)
[2022-09-23] MEDS: Losartan 25 MG TAB PO SCH (09:00)
[2022-09-23] MEDS: Amiodarone 200 MG TAB PO SCH ×3 (09:01→20:15)
[2022-09-23] MEDS: Spironolactone 25 MG TAB PO SCH ×2 (09:02→11:08)
[2022-09-23] MEDS: Furosemide 40 MG TAB PO SCH (09:02)
[2022-09-23] MEDS: Apixaban 5 MG TAB PO SCH ×2 (09:02→20:15)
[2022-09-23] MEDS: Bupropion 150 MG XL TAB PO SCH (09:03)
[2022-09-23] MEDS ORDERED: Empagliflozin 10 MG TAB PO SCH (09:45)
[2022-09-23] MEDS: Loperamide HCl 2 MG CAP PO PRN (18:52)
[2022-09-23] MEDS: Temazepam 15 MG CAP PO PRN (20:15)
[2022-09-23 21:09] LABS: Bacteria/HPF 4+ HPF (None Seen); Bilirubin Negative (Negative); Blood, Urine Trace (Negative); Clarity Clear (Clear); Glucose, Urine (Dipstick) 500 mg/dL (Negative); Ketone, Urine Negative (Negative); Leukocyte 25 Leu/uL (Negative); Nitrite Negative (Negative); Protein, Urine (Dipstick) Negative (Neg-Trace); RBC/HPF 0-3 HPF (0-3); Squamous Epithelial 0-3 HPF (0-3); Urobilinogen Normal mg/dL (Less than 2); WBC/HPF 0-3 HPF (0-3)
[2022-09-24 05:05] LABS: Anion Gap 15 mmol/L (10-20); BUN (Urea Nitrogen) 37 mg/dL (9.8-20.1); Calc. Creatinine Clearance 31 mL/min (70-130); Calcium 8.8 mg/dL (7.8-10.44); Carbon Dioxide 25 mmol/L (23-31); Chloride 102 mmol/L (98-107); Estimated GFR 39; Glucose 88 mg/dL (83-110); Potassium 4.6 mmol/L (3.5-5.1); Sodium 137 mmol/L (136-145)
[2022-09-24] MEDS: Levothyroxine Sodium 100 MCG TAB PO SCH (05:12)
[2022-09-24] MEDS: Amiodarone 200 MG TAB PO SCH ×3 (10:01→20:14)
[2022-09-24] MEDS: Furosemide 40 MG TAB PO SCH (10:01)
[2022-09-24] MEDS: Losartan 25 MG TAB PO SCH (10:01)
[2022-09-24] MEDS: Bupropion 150 MG XL TAB PO SCH (10:01)
[2022-09-24] MEDS: Empagliflozin 10 MG TAB PO SCH (10:02)
[2022-09-24] MEDS: Apixaban 5 MG TAB PO SCH ×2 (10:02→20:14)
[2022-09-24] MEDS: Spironolactone 25 MG TAB PO SCH (10:02)
[2022-09-24] MEDS: Temazepam 15 MG CAP PO PRN (20:14)
[2022-09-25] MEDS: Levothyroxine Sodium 100 MCG TAB PO SCH (05:49)
[2022-09-25] MEDS: Losartan 25 MG TAB PO SCH (10:15)
[2022-09-25] MEDS: Spironolactone 25 MG TAB PO SCH (10:16)
[2022-09-25] MEDS: Bupropion 150 MG XL TAB PO SCH (10:16)
[2022-09-25] MEDS: Amiodarone 200 MG TAB PO SCH ×3 (10:16→20:27)
[2022-09-25] MEDS: Empagliflozin 10 MG TAB PO SCH (10:16)
[2022-09-25] MEDS: Furosemide 40 MG TAB PO SCH (10:17)
[2022-09-25] MEDS: Apixaban 5 MG TAB PO SCH ×2 (10:17→20:28)
[2022-09-25] MEDS: Loperamide HCl 2 MG CAP PO PRN (16:50)
[2022-09-25] MEDS: Temazepam 15 MG CAP PO PRN (20:28)
[2022-09-26] MEDS: Levothyroxine Sodium 100 MCG TAB PO SCH (05:44)
[2022-09-26 07:48] LABS: Anion Gap 13 mmol/L (10-20); BUN (Urea Nitrogen) 38 mg/dL (9.8-20.1); BUN/Creatinine Ratio 25.85; Calc. Creatinine Clearance 27 mL/min (70-130); Calcium 9.2 mg/dL (7.8-10.44); Carbon Dioxide 24 mmol/L (23-31); Chloride 103 mmol/L (98-107); Estimated GFR 35; Glucose 80 mg/dL (83-110); Phosphorus 3.4 mg/dL (2.3-4.7); Potassium 4.4 mmol/L (3.5-5.1); Sodium 136 mmol/L (136-145)
[2022-09-26] MEDS ORDERED: Amiodarone 200 MG TAB PO SCH (10:30)
[2022-09-26] MEDS: Bupropion 150 MG XL TAB PO SCH (10:41)
[2022-09-26] MEDS: Apixaban 5 MG TAB PO SCH ×2 (10:41→20:05)
[2022-09-26] MEDS: Empagliflozin 10 MG TAB PO SCH (10:42)
[2022-09-26] MEDS: Spironolactone 25 MG TAB PO SCH (10:42)
[2022-09-26] MEDS: Losartan 25 MG TAB PO SCH (10:42)
[2022-09-26] MEDS: Furosemide 40 MG TAB PO SCH (10:42)
[2022-09-26] MEDS: Loperamide HCl 2 MG CAP PO PRN ×2 (11:35→17:19)
[2022-09-26] MEDS: Amiodarone 200 MG TAB PO SCH (11:44)
[2022-09-26] MEDS: Temazepam 15 MG CAP PO PRN (20:05)
[2022-09-27] MEDS: Levothyroxine Sodium 100 MCG TAB PO SCH (05:28)
[2022-09-27 05:36] LABS: ALT (SGPT) 69 U/L (8-55); AST (SGOT) 27 U/L (5-34); Albumin 3.1 g/dL (3.4-4.8); Alkaline Phosphatase 263 U/L (40-110); Anion Gap 15 mmol/L (10-20); BUN (Urea Nitrogen) 42 mg/dL (9.8-20.1); Bilirubin, Total 0.5 mg/dL (0.2-1.2); Calc. Creatinine Clearance 24 mL/min (70-130); Calcium 9.2 mg/dL (7.8-10.44); Carbon Dioxide 24 mmol/L (23-31); Chloride 102 mmol/L (98-107); Estimated GFR 30; Globulin 3.8 g/dL (2.4-3.5); Glucose 84 mg/dL (83-110); Potassium 4.1 mmol/L (3.5-5.1); Protein, Total 6.9 g/dL (5.8-8.1); Sodium 137 mmol/L (136-145)
[2022-09-27] MEDS: Apixaban 5 MG TAB PO SCH ×2 (10:04→19:24)
[2022-09-27] MEDS: Bupropion 150 MG XL TAB PO SCH (10:04)
[2022-09-27] MEDS: Losartan 25 MG TAB PO SCH (10:04)
[2022-09-27] MEDS: Empagliflozin 10 MG TAB PO SCH (10:04)
[2022-09-27] MEDS: Amiodarone 200 MG TAB PO SCH (10:05)
[2022-09-27] MEDS: Spironolactone 25 MG TAB PO SCH (10:05)
[2022-09-27] MEDS: Temazepam 15 MG CAP PO PRN (19:24)
[2022-09-28 05:46] LABS: Albumin 3.2 g/dL (3.4-4.8); Anion Gap 17 mmol/L (10-20); BUN (Urea Nitrogen) 44 mg/dL (9.8-20.1); BUN/Creatinine Ratio 25.73; Calc. Creatinine Clearance 23 mL/min (70-130); Calcium 9.2 mg/dL (7.8-10.44); Carbon Dioxide 21 mmol/L (23-31); Chloride 103 mmol/L (98-107); Estimated GFR 29; Glucose 82 mg/dL (83-110); Phosphorus 3.9 mg/dL (2.3-4.7); Potassium 4.5 mmol/L (3.5-5.1); Sodium 136 mmol/L (136-145)
[2022-09-28] MEDS: Levothyroxine Sodium 100 MCG TAB PO SCH (05:51)
[2022-09-28] MEDS ORDERED: Losartan 25 MG TAB PO SCH (09:00)
[2022-09-28] MEDS: Amiodarone 200 MG TAB PO SCH (09:52)
[2022-09-28] MEDS: Bupropion 150 MG XL TAB PO SCH (09:52)
[2022-09-28] MEDS: Apixaban 5 MG TAB PO SCH ×2 (09:53→20:14)
[2022-09-28] MEDS ORDERED: Sodium Bicarbonate Tab 325 MG TAB PO SCH ×2 (10:44→11:15)
[2022-09-28] MEDS: Loperamide HCl 2 MG CAP PO PRN (20:14)
[2022-09-28] MEDS: Sodium Bicarbonate Tab 325 MG TAB PO SCH (20:14)
[2022-09-29 01:27] LABS: Bacteria/HPF None Seen HPF (None Seen); Bilirubin Negative (Negative); Blood, Urine Negative (Negative); Clarity Clear (Clear); Glucose, Urine (Dipstick) 70 mg/dL (Negative); Ketone, Urine Negative (Negative); Leukocyte Negative Leu/uL (Negative); Nitrite Negative (Negative); Protein, Urine (Dipstick) Negative (Neg-Trace); RBC/HPF 0-3 HPF (0-3); Specific Gravity, Urine 1.012 (1.002-1.036); Squamous Epithelial 0-3 HPF (0-3); Urobilinogen Normal mg/dL (Less than 2); WBC/HPF 0-3 HPF (0-3); pH, Urine 5.5 (5.0-9.0)
[2022-09-29 01:51] LABS: Creatinine, Urine 60.68 mg/dL (47-110); Sodium, Urine Less than 20 mmol/L (Not Available); Urea Nitrogen, Random Urine 682 mg/dl
[2022-09-29] MEDS: Levothyroxine Sodium 100 MCG TAB PO SCH (05:21)
[2022-09-29 08:12] LABS: Anion Gap 15 mmol/L (10-20); BUN (Urea Nitrogen) 38 mg/dL (9.8-20.1); Calc. Creatinine Clearance 22 mL/min (70-130); Calcium 9.2 mg/dL (7.8-10.44); Carbon Dioxide 24 mmol/L (23-31); Chloride 102 mmol/L (98-107); Estimated GFR 28; Glucose 87 mg/dL (83-110); Potassium 4.2 mmol/L (3.5-5.1); Sodium 137 mmol/L (136-145)
[2022-09-29] MEDS: Bupropion 150 MG XL TAB PO SCH (10:04)
[2022-09-29] MEDS: Sodium Bicarbonate Tab 325 MG TAB PO SCH ×2 (10:04→21:04)
[2022-09-29] MEDS: Amiodarone 200 MG TAB PO SCH (10:05)
[2022-09-29] MEDS: Apixaban 5 MG TAB PO SCH ×2 (10:05→21:04)
[2022-09-29] MEDS: Temazepam 15 MG CAP PO PRN (21:07)
[2022-09-30 05:03] LABS: Albumin 2.8 g/dL (3.4-4.8); Anion Gap 17 mmol/L (10-20); BUN (Urea Nitrogen) 36 mg/dL (9.8-20.1); BUN/Creatinine Ratio 22.22; Calc. Creatinine Clearance 24 mL/min (70-130); Calcium 8.9 mg/dL (7.8-10.44); Carbon Dioxide 16 mmol/L (23-31); Chloride 106 mmol/L (98-107); Estimated GFR 31; Glucose 79 mg/dL (83-110); Phosphorus 4.1 mg/dL (2.3-4.7); Potassium 5.4 mmol/L (3.5-5.1); Sodium 134 mmol/L (136-145)
[2022-09-30] MEDS: Levothyroxine Sodium 100 MCG TAB PO SCH (05:18)
[2022-09-30] MEDS: Sodium Bicarbonate Tab 325 MG TAB PO SCH ×3 (08:50→19:37)
[2022-09-30] MEDS: Amiodarone 200 MG TAB PO SCH (08:51)
[2022-09-30] MEDS: Apixaban 5 MG TAB PO SCH ×2 (08:51→19:36)
[2022-09-30] MEDS: Bupropion 150 MG XL TAB PO SCH (08:51)
[2022-09-30 11:24] LABS: #Basophils 0.1 thou/uL (0.0-0.2); #Eosinphils 0.3 thou/uL (0.0-0.7); #Lymphocytes 1.4 thou/uL (1.20-3.40); #Monocytes 1.1 thou/uL (0.11-0.59); #Neutrophils 8.1 thou/uL (1.40-6.50); %Basophils 0.5 % (0.0-1.0); %Eosinophils 2.6 % (0.0-10.0); %Monocytes 10.1 % (0.0-10.0); %Neutrophils 73.8 % (42.0-75.0); Hemoglobin 12.7 g/dL (12.0-16.0); Mean Corpuscular HGB CONC 31.5 g/dL (32.0-36.0); Mean Corpuscular Hemoglobin 29.6 pg (27.0-31.0); Mean Corpuscular Volume 94.2 fl (78.0-98.0); Mean Platelet Volume 8.3 fL (7.4-10.4); Platelet Count 558 10x3/uL (130-400); Red Blood Cell (RBC) Count 4.28 mill/uL (4.20-5.40); White Blood Cell (WBC) Count 10.9 10x3/uL (4.8-10.8)
[2022-09-30 16:16] LABS: Anion Gap 14 mmol/L (10-20); BUN (Urea Nitrogen) 40 mg/dL (9.8-20.1); Calc. Creatinine Clearance 19 mL/min (70-130); Calcium 9.3 mg/dL (7.8-10.44); Carbon Dioxide 25 mmol/L (23-31); Chloride 102 mmol/L (98-107); Estimated GFR 23; Glucose 107 mg/dL (83-110); Potassium 4.8 mmol/L (3.5-5.1); Sodium 136 mmol/L (136-145)
[2022-09-30] MEDS: Loperamide HCl 2 MG CAP PO PRN (18:09)
[2022-09-30] MEDS: Temazepam 15 MG CAP PO PRN (19:41)
[2022-10-01 05:05] LABS: Anion Gap 15 mmol/L (10-20); BUN (Urea Nitrogen) 35 mg/dL (9.8-20.1); Calc. Creatinine Clearance 28 mL/min (70-130); Calcium 8.7 mg/dL (7.8-10.44); Carbon Dioxide 21 mmol/L (23-31); Chloride 106 mmol/L (98-107); Estimated GFR 33; Glucose 75 mg/dL (83-110); Potassium 3.8 mmol/L (3.5-5.1); Sodium 138 mmol/L (136-145)
[2022-10-01] MEDS: Levothyroxine Sodium 100 MCG TAB PO SCH (05:13)
[2022-10-01] MEDS: Sodium Bicarbonate Tab 325 MG TAB PO SCH ×3 (09:04→20:50)
[2022-10-01] MEDS: Bupropion 150 MG XL TAB PO SCH (09:04)
[2022-10-01] MEDS: Apixaban 5 MG TAB PO SCH ×2 (09:04→20:50)
[2022-10-01] MEDS: Amiodarone 200 MG TAB PO SCH (09:04)
[2022-10-01] MEDS: Temazepam 15 MG CAP PO PRN (20:52)
[2022-10-02] MEDS: Levothyroxine Sodium 100 MCG TAB PO SCH (05:11)
[2022-10-02 07:37] LABS: Albumin 3.1 g/dL (3.4-4.8); Anion Gap 15 mmol/L (10-20); BUN (Urea Nitrogen) 36 mg/dL (9.8-20.1); BUN/Creatinine Ratio 24.49; Calc. Creatinine Clearance 28 mL/min (70-130); Calcium 8.9 mg/dL (7.8-10.44); Carbon Dioxide 24 mmol/L (23-31); Chloride 104 mmol/L (98-107); Estimated GFR 35; Glucose 80 mg/dL (83-110); Phosphorus 3.6 mg/dL (2.3-4.7); Potassium 3.6 mmol/L (3.5-5.1); Sodium 139 mmol/L (136-145)
[2022-10-02] MEDS: Sodium Bicarbonate Tab 325 MG TAB PO SCH ×3 (08:59→20:34)
[2022-10-02] MEDS: Spironolactone 25 MG TAB PO SCH (09:00)
[2022-10-02] MEDS: Empagliflozin 10 MG TAB PO SCH (09:00)
[2022-10-02] MEDS: Amiodarone 200 MG TAB PO SCH (09:00)
[2022-10-02] MEDS: Bupropion 150 MG XL TAB PO SCH (09:00)
[2022-10-02] MEDS: Apixaban 5 MG TAB PO SCH ×2 (09:00→20:34)
[2022-10-02] MEDS: Temazepam 15 MG CAP PO PRN (20:33)
[2022-10-03] MEDS: Levothyroxine Sodium 100 MCG TAB PO SCH (06:00)
[2022-10-03 06:06] LABS: Albumin 3.2 g/dL (3.4-4.8); Anion Gap 15 mmol/L (10-20); BUN (Urea Nitrogen) 35 mg/dL (9.8-20.1); BUN/Creatinine Ratio 22.29; Calc. Creatinine Clearance 27 mL/min (70-130); Carbon Dioxide 26 mmol/L (23-31); Chloride 103 mmol/L (98-107); Estimated GFR 32; Glucose 82 mg/dL (83-110); Phosphorus 3.5 mg/dL (2.3-4.7); Potassium 3.7 mmol/L (3.5-5.1); Sodium 140 mmol/L (136-145)
[2022-10-03] MEDS: Apixaban 5 MG TAB PO SCH ×2 (08:36→20:11)
[2022-10-03] MEDS: Amiodarone 200 MG TAB PO SCH (08:36)
[2022-10-03] MEDS: Bupropion 150 MG XL TAB PO SCH (08:36)
[2022-10-03] MEDS: Sodium Bicarbonate Tab 325 MG TAB PO SCH ×3 (08:37→20:10)
[2022-10-03] MEDS: Empagliflozin 10 MG TAB PO SCH (08:37)
[2022-10-03] MEDS: Spironolactone 25 MG TAB PO SCH (08:37)
[2022-10-03] MEDS: Temazepam 15 MG CAP PO PRN (20:10)
[2022-10-03] MEDS: Loperamide HCl 2 MG CAP PO PRN (20:11)
[2022-10-04] MEDS: Levothyroxine Sodium 100 MCG TAB PO SCH (06:01)
[2022-10-04 08:33] LABS: Albumin 3.2 g/dL (3.4-4.8); Anion Gap 14 mmol/L (10-20); BUN (Urea Nitrogen) 34 mg/dL (9.8-20.1); BUN/Creatinine Ratio 21.94; Calc. Creatinine Clearance 27 mL/min (70-130); Calcium 9.2 mg/dL (7.8-10.44); Carbon Dioxide 25 mmol/L (23-31); Chloride 103 mmol/L (98-107); Estimated GFR 33; Glucose 94 mg/dL (83-110); Phosphorus 3.9 mg/dL (2.3-4.7); Sodium 138 mmol/L (136-145)
[2022-10-04] MEDS: Spironolactone 25 MG TAB PO SCH (09:29)
[2022-10-04] MEDS: Bupropion 150 MG XL TAB PO SCH (09:30)
[2022-10-04] MEDS: Amiodarone 200 MG TAB PO SCH (09:32)
[2022-10-04] MEDS: Sodium Bicarbonate Tab 325 MG TAB PO SCH ×3 (09:32→20:27)
[2022-10-04] MEDS: Empagliflozin 10 MG TAB PO SCH (09:33)
[2022-10-04] MEDS: Apixaban 5 MG TAB PO SCH ×2 (09:33→20:27)
[2022-10-04] MEDS ORDERED: Furosemide 40 MG/4 ML VIAL SLOW IVP SCH (15:45)
[2022-10-04] MEDS: Temazepam 15 MG CAP PO PRN (20:28)
[2022-10-05] MEDS: Levothyroxine Sodium 100 MCG TAB PO SCH (05:10)
[2022-10-05 05:11] LABS: Hemoglobin 11.8 g/dL (12.0-16.0); Platelet Count 538 10x3/uL (130-400)
[2022-10-05 05:32] LABS: Albumin 3.3 g/dL (3.4-4.8); Anion Gap 15 mmol/L (10-20); BUN (Urea Nitrogen) 35 mg/dL (9.8-20.1); BUN/Creatinine Ratio 21.08; Calc. Creatinine Clearance 26 mL/min (70-130); Calcium 8.9 mg/dL (7.8-10.44); Carbon Dioxide 27 mmol/L (23-31); Chloride 102 mmol/L (98-107); Estimated GFR 30; Glucose 89 mg/dL (83-110); Phosphorus 4.1 mg/dL (2.3-4.7); Potassium 3.6 mmol/L (3.5-5.1); Sodium 140 mmol/L (136-145)
[2022-10-05] MEDS ORDERED: Furosemide 40 MG/4 ML VIAL SLOW IVP SCH (08:00)
[2022-10-05] MEDS: Sodium Bicarbonate Tab 325 MG TAB PO SCH ×2 (09:01→20:33)
[2022-10-05] MEDS: Empagliflozin 10 MG TAB PO SCH (09:02)
[2022-10-05] MEDS: Bupropion 150 MG XL TAB PO SCH (09:02)
[2022-10-05] MEDS: Amiodarone 200 MG TAB PO SCH (09:03)
[2022-10-05] MEDS: Spironolactone 25 MG TAB PO SCH (09:03)
[2022-10-05] MEDS: Apixaban 5 MG TAB PO SCH (09:03)
[2022-10-05] MEDS: Temazepam 15 MG CAP PO PRN (20:33)
[2022-10-05] MEDS: Apixaban 2.5 MG TAB PO SCH (20:33)
[2022-10-06] MEDS: Levothyroxine Sodium 100 MCG TAB PO SCH (05:27)
[2022-10-06] MEDS: Amiodarone 200 MG TAB PO SCH (09:21)
[2022-10-06] MEDS: Sodium Bicarbonate Tab 325 MG TAB PO SCH (09:22)
[2022-10-06] MEDS: Bupropion 150 MG XL TAB PO SCH (09:22)
[2022-10-06] MEDS: Empagliflozin 10 MG TAB PO SCH (09:22)
[2022-10-06] MEDS: Apixaban 2.5 MG TAB PO SCH ×2 (09:22→20:29)
[2022-10-06] MEDS: Spironolactone 25 MG TAB PO SCH (09:22)
[2022-10-06 09:27] LABS: Albumin 2.9 g/dL (3.4-4.8); Anion Gap 14 mmol/L (10-20); BUN (Urea Nitrogen) 33 mg/dL (9.8-20.1); BUN/Creatinine Ratio 20.75; Calc. Creatinine Clearance 26 mL/min (70-130); Carbon Dioxide 29 mmol/L (23-31); Chloride 100 mmol/L (98-107); Estimated GFR 32; Glucose 85 mg/dL (83-110); Phosphorus 3.8 mg/dL (2.3-4.7); Potassium 3.4 mmol/L (3.5-5.1); Sodium 140 mmol/L (136-145)
[2022-10-06] MEDS ORDERED: Torsemide 10 MG TAB PO SCH (10:00)
[2022-10-06] MEDS ORDERED: Potassium Chloride 20 MEQ TAB PO SCH (10:00)
[2022-10-06] MEDS: Loperamide HCl 2 MG CAP PO PRN (20:29)
[2022-10-06] MEDS: Temazepam 15 MG CAP PO PRN (20:29)
[2022-10-07 05:32] LABS: Anion Gap 12 mmol/L (10-20); BUN (Urea Nitrogen) 33 mg/dL (9.8-20.1); Calc. Creatinine Clearance 25 mL/min (70-130); Calcium 8.9 mg/dL (7.8-10.44); Carbon Dioxide 29 mmol/L (23-31); Chloride 102 mmol/L (98-107); Estimated GFR 30; Glucose 85 mg/dL (83-110); Magnesium 1.8 mg/dL (1.6-2.6); Potassium 3.6 mmol/L (3.5-5.1); Sodium 139 mmol/L (136-145)
[2022-10-07] MEDS: Levothyroxine Sodium 100 MCG TAB PO SCH (05:46)
[2022-10-07] MEDS ORDERED: Spironolactone 25 MG TAB PO SCH (08:00)
[2022-10-07] MEDS ORDERED: Magnesium 2 GM/50 ML(in water) 2 GM in Premix Bag 1 BAG IVPB SCH (08:00)
[2022-10-07] MEDS ORDERED: Torsemide 10 MG TAB PO SCH (09:00)
[2022-10-07] MEDS: Bupropion 150 MG XL TAB PO SCH (09:08)
[2022-10-07] MEDS: Apixaban 2.5 MG TAB PO SCH (09:09)
[2022-10-07] MEDS: Empagliflozin 10 MG TAB PO SCH (09:09)
[2022-10-07] MEDS: Amiodarone 200 MG TAB PO SCH (09:09)
[2022-10-07 12:12] VITALS: BP 109/67; TEMP 97.5
== END 2022-10-07 13:50 | DRG 291 ==
LOC: ERS 10:15 → ERHOLD 12:14 → IMCU/EMU 16:24 → 2NO 09-22 17:33
PROVIDERS: ADMIT Internal Medicine; ATTEND Internal Medicine
PROC: B24BZZ4 Ultrasonography of Heart with Aorta, Transesophageal (ICD-10-PCS; principal; 2022-09-22)
PROC: 5A09357 Assistance with Respiratory Ventilation, Less than 24 Consecutive Hours, Continuous Positive Airway Pressure (ICD-10-PCS; 2022-10-04)
DX: I13.0 Hypertensive heart and chronic kidney disease with heart failure and stage 1 through stage 4 chronic kidney disease, or unspecified chronic kidney disease (principal); I50.23 Acute on chronic systolic (congestive) heart failure; J96.01 Acute respiratory failure with hypoxia; C78.7 Secondary malignant neoplasm of liver and intrahepatic bile duct; I24.8 Other forms of acute ischemic heart disease; N17.9 Acute kidney failure, unspecified; C18.9 Malignant neoplasm of colon, unspecified; E87.20 Acidosis, unspecified; C7A.8 Other malignant neuroendocrine tumors; I48.19 Other persistent atrial fibrillation; E03.9 Hypothyroidism, unspecified; G47.33 Obstructive sleep apnea (adult) (pediatric); Z96.651 Presence of right artificial knee joint; E87.6 Hypokalemia; R74.01 Elevation of levels of liver transaminase levels; D63.1 Anemia in chronic kidney disease; I51.3 Intracardiac thrombosis, not elsewhere classified; G89.4 Chronic pain syndrome; N18.30 Chronic kidney disease, stage 3 unspecified; E83.42 Hypomagnesemia; R53.81 Other malaise; E87.5 Hyperkalemia; Z20.822 Contact with and (suspected) exposure to COVID-19; Z90.49 Acquired absence of other specified parts of digestive tract; Z79.01 Long term (current) use of anticoagulants; Z88.8 Allergy status to other drugs, medicaments and biological substances; Z88.5 Allergy status to narcotic agent; Z79.890 Hormone replacement therapy; Z79.899 Other long term (current) drug therapy; Z98.890 Other specified postprocedural states; Z90.10 Acquired absence of unspecified breast and nipple; Z85.3 Personal history of malignant neoplasm of breast; Z82.49 Family history of ischemic heart disease and other diseases of the circulatory system; Z86.711 Personal history of pulmonary embolism
CPT/HCPCS: 36415; 51701; 71045; 80048; 80053; 80069; 81001; 81003; 81015; 82553; 82570; 83735; 83880; 84156; 84300; 84484; 84540; 85014; 85018; 85025; 85049; 85610; 85730; 87811; 92960; 93005; 93306; 93312; 96365; 96366; 96368; 96375; 96376; J1160; J1644; J1940; J2405; J2704; J3475; J3490; U0003; U0005

== ENCOUNTER 2023-06-29 16:45 | Inpatient (IN) | payer OTHER ==
[2023-06-29 17:26] LABS: #Eosinphils 0.1 thou/uL (0.0-0.7); #Monocytes 0.5 thou/uL (0.11-0.59); %Basophils 0.5 % (0.0-1.0); %Eosinophils 0.9 % (0.0-10.0); %Lymphocytes 10.9 % (21.0-51.0); %Neutrophils 80.4 % (42.0-75.0); Hematocrit 42.8 % (36.0-47.0); Hemoglobin 13.9 g/dL (12.0-16.0); Mean Corpuscular HGB CONC 32.5 g/dL (32.0-36.0); Mean Corpuscular Hemoglobin 31.4 pg (27.0-31.0); Mean Corpuscular Volume 96.6 fl (78.0-98.0); Mean Platelet Volume 11.8 fL (7.4-10.4); Platelet Count 232 10x3/uL (130-400); RBC Distribution Width 15.4 % (11.5-14.5); Red Blood Cell (RBC) Count 4.43 mill/uL (4.20-5.40); White Blood Cell (WBC) Count 7.5 10x3/uL (4.8-10.8)
[2023-06-29 17:49] LABS: ALT (SGPT) 29 U/L (8-55); AST (SGOT) 35 U/L (5-34); Albumin 4.6 g/dL (3.4-4.8); Alkaline Phosphatase 307 U/L (40-110); Anion Gap 15 mmol/L (10-20); BUN (Urea Nitrogen) 38 mg/dL (9.8-20.1); Bilirubin, Total 0.6 mg/dL (0.2-1.2); Calc. Creatinine Clearance 0 mL/min (70-130); Carbon Dioxide 19 mmol/L (23-31); Chloride 109 mmol/L (98-107); Estimated GFR 26; Globulin 2.6 g/dL (2.4-3.5); Glucose 155 mg/dL (83-110); Potassium 3.6 mmol/L (3.5-5.1); Protein, Total 7.2 g/dL (5.8-8.1); Sodium 139 mmol/L (136-145)
[2023-06-29 17:54] LABS: Troponin I 0.027 ng/mL (< 0.028)
[2023-06-29] MEDS ORDERED: Furosemide 40 MG/4 ML VIAL ONE (19:20)
[2023-06-29] MEDS ORDERED: Potassium Chloride 20 MEQ TAB ONE (19:20)
[2023-06-29] MEDS ORDERED: Aspirin Chewable 81 MG TAB ONE (20:44)
[2023-06-29] MEDS ORDERED: Metoprolol Tartrate 5 MG/5 ML VIAL ONE (20:44)
[2023-06-29 21:15] LABS: Troponin I 0.028 ng/mL (< 0.028)
[2023-06-29 22:10] VITALS: BMI 24.9
[2023-06-29] MEDS ORDERED: Ondansetron PF 4 MG/2 ML Vial IVP PRN (23:58)
[2023-06-29] MEDS ORDERED: Acetaminophen 325 MG TAB PO PRN (23:58)
[2023-06-30 00:40] LABS: Troponin I 0.029 ng/mL (< 0.028)
[2023-06-30 04:49] LABS: #Basophils 0.1 thou/uL (0.0-0.2); #Eosinphils 0.2 thou/uL (0.0-0.7); #Monocytes 0.9 thou/uL (0.11-0.59); #Neutrophils 4.9 thou/uL (1.40-6.50); %Basophils 0.6 % (0.0-1.0); %Eosinophils 2.5 % (0.0-10.0); %Lymphocytes 23.8 % (21.0-51.0); %Neutrophils 61.8 % (42.0-75.0); Hematocrit 38.9 % (36.0-47.0); Hemoglobin 12.8 g/dL (12.0-16.0); Mean Corpuscular HGB CONC 32.9 g/dL (32.0-36.0); Mean Corpuscular Hemoglobin 31.4 pg (27.0-31.0); Mean Corpuscular Volume 95.6 fl (78.0-98.0); Platelet Count 219 10x3/uL (130-400); RBC Distribution Width 15.2 % (11.5-14.5); Red Blood Cell (RBC) Count 4.07 mill/uL (4.20-5.40); White Blood Cell (WBC) Count 7.9 10x3/uL (4.8-10.8)
[2023-06-30 05:11] LABS: Anion Gap 18 mmol/L (10-20); BUN (Urea Nitrogen) 37 mg/dL (9.8-20.1); Calc. Creatinine Clearance 26 mL/min (70-130); Calcium 8.6 mg/dL (7.8-10.44); Carbon Dioxide 20 mmol/L (23-31); Chloride 108 mmol/L (98-107); Estimated GFR 33; Glucose 104 mg/dL (83-110); Potassium 3.7 mmol/L (3.5-5.1); Sodium 142 mmol/L (136-145)
[2023-06-30 05:23] LABS: Magnesium 1.9 mg/dL (1.6-2.6)
[2023-06-30] MEDS: Levothyroxine Sodium 100 MCG TAB PO SCH (05:52)
[2023-06-30] MEDS: Furosemide 20 MG/2 ML VIAL SLOW IVP SCH ×2 (05:52→14:45)
[2023-06-30] MEDS ORDERED: KERENDIA 20 MG PO SCH (09:00)
[2023-06-30] MEDS ORDERED: Amiodarone 200 MG TAB PO SCH (09:00)
[2023-06-30] MEDS: Atorvastatin Calcium 20 MG TAB PO SCH (09:10)
[2023-06-30] MEDS: Aspirin 81 mg Enteric Coated Tablet PO SCH (09:10)
[2023-06-30] MEDS: Apixaban 2.5 MG TAB PO SCH ×2 (09:10→20:06)
[2023-06-30] MEDS: BuPROPion 100 MG SR.TAB PO SCH (09:12)
[2023-06-30] MEDS ORDERED: Empagliflozin 10 MG TAB PO SCH (09:30)
[2023-06-30] MEDS: Sacubitril 24MG/Valsartan 26 MG TAB PO SCH (20:06)
[2023-06-30] MEDS: Amiodarone 200 MG TAB PO SCH (20:06)
[2023-06-30] MEDS ORDERED: Mirtazapine 15 MG Soltab PO SCH (21:00)
[2023-06-30] MEDS ORDERED: Temazepam 15 MG CAP PO SCH ×2 (21:00)
[2023-06-30] MEDS ORDERED: Electrolyte Replacement Protocol 1 EACH FS SCH (23:45)
[2023-06-30] MEDS ORDERED: Metoprolol Tartrate 5 MG/5 ML VIAL IVP SCH (23:59)
[2023-07-01] MEDS ORDERED: Magnesium 2 GM/50 ML(in water) 2 GM in Premix 1 BAG IVPB SCH (02:15)
[2023-07-01 04:33] LABS: #Basophils 0.1 thou/uL (0.0-0.2); #Eosinphils 0.3 thou/uL (0.0-0.7); #Monocytes 0.9 thou/uL (0.11-0.59); #Neutrophils 5.1 thou/uL (1.40-6.50); %Basophils 0.7 % (0.0-1.0); %Eosinophils 3.4 % (0.0-10.0); %Lymphocytes 23.5 % (21.0-51.0); %Monocytes 10.4 % (0.0-10.0); %Neutrophils 61.6 % (42.0-75.0); Hematocrit 43.5 % (36.0-47.0); Hemoglobin 14.1 g/dL (12.0-16.0); Mean Corpuscular HGB CONC 32.4 g/dL (32.0-36.0); Mean Corpuscular Hemoglobin 31.2 pg (27.0-31.0); Mean Corpuscular Volume 96.2 fl (78.0-98.0); Mean Platelet Volume 12.3 fL (7.4-10.4); Platelet Count 253 10x3/uL (130-400); RBC Distribution Width 15.6 % (11.5-14.5); Red Blood Cell (RBC) Count 4.52 mill/uL (4.20-5.40); White Blood Cell (WBC) Count 8.3 10x3/uL (4.8-10.8)
[2023-07-01 04:59] LABS: Anion Gap 17 mmol/L (10-20); BUN (Urea Nitrogen) 39 mg/dL (9.8-20.1); Calc. Creatinine Clearance 23 mL/min (70-130); Calcium 8.8 mg/dL (7.8-10.44); Carbon Dioxide 23 mmol/L (23-31); Chloride 104 mmol/L (98-107); Estimated GFR 30; Glucose 95 mg/dL (83-110); Magnesium 2.1 mg/dL (1.6-2.6); Potassium 3.9 mmol/L (3.5-5.1); Sodium 140 mmol/L (136-145)
[2023-07-01] MEDS: Furosemide 20 MG/2 ML VIAL SLOW IVP SCH ×2 (05:42→13:55)
[2023-07-01] MEDS: Levothyroxine Sodium 100 MCG TAB PO SCH (05:42)
[2023-07-01 07:35] VITALS: TEMP 98.8
[2023-07-01] MEDS: Aspirin 81 mg Enteric Coated Tablet PO SCH (08:11)
[2023-07-01] MEDS: Sacubitril 24MG/Valsartan 26 MG TAB PO SCH (08:11)
[2023-07-01] MEDS: Apixaban 2.5 MG TAB PO SCH (08:11)
[2023-07-01] MEDS: Amiodarone 200 MG TAB PO SCH (08:12)
[2023-07-01] MEDS: Atorvastatin Calcium 20 MG TAB PO SCH (08:12)
[2023-07-01] MEDS: BuPROPion 100 MG SR.TAB PO SCH (08:13)
[2023-07-01] MEDS ORDERED: KERENDIA 20 MG PO SCH (09:00)
[2023-07-01] MEDS ORDERED: Empagliflozin 10 MG TAB PO SCH (09:00)
[2023-07-01 11:35] VITALS: BP 111/82
== END 2023-07-01 17:40 | disposition home or self-care (01) | DRG 291 ==
LOC: ERS 16:45 → 2SW 20:31 → OBSVTOIN 06-30 17:44
PROVIDERS: ADMIT Internal Medicine; ATTEND Internal Medicine
DX: I13.0 Hypertensive heart and chronic kidney disease with heart failure and stage 1 through stage 4 chronic kidney disease, or unspecified chronic kidney disease (principal); I50.23 Acute on chronic systolic (congestive) heart failure; N18.4 Chronic kidney disease, stage 4 (severe); N17.9 Acute kidney failure, unspecified; E87.21 Acute metabolic acidosis; C78.7 Secondary malignant neoplasm of liver and intrahepatic bile duct; C7A.8 Other malignant neuroendocrine tumors; I48.91 Unspecified atrial fibrillation; Z66 Do not resuscitate; D63.1 Anemia in chronic kidney disease; E87.6 Hypokalemia; E78.5 Hyperlipidemia, unspecified; E03.9 Hypothyroidism, unspecified; Z79.82 Long term (current) use of aspirin; Z79.899 Other long term (current) drug therapy; Z79.01 Long term (current) use of anticoagulants; Z88.5 Allergy status to narcotic agent; Z88.8 Allergy status to other drugs, medicaments and biological substances; Z79.890 Hormone replacement therapy; Z98.890 Other specified postprocedural states; Z90.12 Acquired absence of left breast and nipple; Z82.49 Family history of ischemic heart disease and other diseases of the circulatory system; Z85.3 Personal history of malignant neoplasm of breast
CPT/HCPCS: 36415; 71045; 80048; 80053; 83735; 83880; 84484; 85025; 93005; 93306; 96374; 96375; G0378; J1940; J3475

== ENCOUNTER 2023-08-25 21:31 | Inpatient (IN) | payer OTHER ==
[2023-08-25 22:11] LABS: #Basophils 0.1 thou/uL (0.0-0.2); #Eosinphils 0.1 thou/uL (0.0-0.7); #Monocytes 1.3 thou/uL (0.11-0.59); #Neutrophils 11.4 thou/uL (1.40-6.50); %Basophils 0.6 % (0.0-1.0); %Eosinophils 0.9 % (0.0-10.0); %Monocytes 9.3 % (0.0-10.0); %Neutrophils 83.9 % (42.0-75.0); Hematocrit 44.5 % (36.0-47.0); Hemoglobin 14.4 g/dL (12.0-16.0); Mean Corpuscular HGB CONC 32.4 g/dL (32.0-36.0); Mean Corpuscular Hemoglobin 31.1 pg (27.0-31.0); Mean Corpuscular Volume 96.1 fl (78.0-98.0); Mean Platelet Volume 11.1 fL (7.4-10.4); Platelet Count 372 10x3/uL (130-400); RBC Distribution Width 15.5 % (11.5-14.5); Red Blood Cell (RBC) Count 4.63 mill/uL (4.20-5.40); White Blood Cell (WBC) Count 13.6 10x3/uL (4.8-10.8)
[2023-08-25 22:32] LABS: ALT (SGPT) 18 U/L (8-55); AST (SGOT) 28 U/L (5-34); Albumin 4.3 g/dL (3.4-4.8); Alkaline Phosphatase 465 U/L (40-110); Anion Gap 17 mmol/L (10-20); BUN (Urea Nitrogen) 43 mg/dL (9.8-20.1); Bilirubin, Total 0.6 mg/dL (0.2-1.2); Calc. Creatinine Clearance 0 mL/min (70-130); Carbon Dioxide 19 mmol/L (23-31); Chloride 104 mmol/L (98-107); Estimated GFR 24; Globulin 3.4 g/dL (2.4-3.5); Glucose 122 mg/dL (83-110); Potassium 3.8 mmol/L (3.5-5.1); Protein, Total 7.7 g/dL (5.8-8.1); Sodium 136 mmol/L (136-145)
[2023-08-25 22:41] LABS: Troponin I 0.041 ng/mL (< 0.028)
[2023-08-25] MEDS ORDERED: Furosemide 40 MG (4 mL) VIAL ONE (23:25)
[2023-08-25] MEDS ORDERED: Ondansetron PF 4 MG/2 ML Vial IVP PRN ×2 (23:30→23:55)
[2023-08-25] MEDS ORDERED: Acetaminophen 325 MG TAB PO PRN (23:30)
[2023-08-25] MEDS ORDERED: Ondansetron ODT 4 MG TAB SL PRN (23:30)
[2023-08-25] MEDS ORDERED: Ondansetron ODT 4 MG TAB PO PRN (23:55)
[2023-08-25] MEDS ORDERED: Acetaminophen 650 MG Suppository PR PRN (23:55)
[2023-08-26 00:30] LABS: Magnesium 2.1 mg/dL (1.6-2.6)
[2023-08-26 01:59] LABS: Troponin I 0.019 ng/mL (< 0.028)
[2023-08-26] MEDS: Temazepam 15 MG CAP PO PRN ×2 (02:25→20:34)
[2023-08-26 03:33] VITALS: BMI 24.3
[2023-08-26 05:33] LABS: #Basophils 0.1 thou/uL (0.0-0.2); #Eosinphils 0.1 thou/uL (0.0-0.7); #Monocytes 1.2 thou/uL (0.11-0.59); #Neutrophils 13.4 thou/uL (1.40-6.50); %Basophils 0.4 % (0.0-1.0); %Eosinophils 0.8 % (0.0-10.0); %Lymphocytes 4.9 % (21.0-51.0); %Monocytes 7.8 % (0.0-10.0); %Neutrophils 85.7 % (42.0-75.0); Hematocrit 40.7 % (36.0-47.0); Hemoglobin 13.2 g/dL (12.0-16.0); Mean Corpuscular HGB CONC 32.4 g/dL (32.0-36.0); Mean Corpuscular Hemoglobin 31.3 pg (27.0-31.0); Mean Corpuscular Volume 96.4 fl (78.0-98.0); Mean Platelet Volume 11.3 fL (7.4-10.4); Platelet Count 327 10x3/uL (130-400); RBC Distribution Width 15.3 % (11.5-14.5); Red Blood Cell (RBC) Count 4.22 mill/uL (4.20-5.40); White Blood Cell (WBC) Count 15.6 10x3/uL (4.8-10.8)
[2023-08-26 05:59] LABS: Anion Gap 18 mmol/L (10-20); BUN (Urea Nitrogen) 43 mg/dL (9.8-20.1); Calc. Creatinine Clearance 18 mL/min (70-130); Calcium 8.9 mg/dL (7.8-10.44); Carbon Dioxide 19 mmol/L (23-31); Chloride 105 mmol/L (98-107); Estimated GFR 23; Glucose 104 mg/dL (83-110); Potassium 3.3 mmol/L (3.5-5.1); Sodium 139 mmol/L (136-145); Troponin I 0.029 ng/mL (< 0.028)
[2023-08-26] MEDS: Furosemide 40 MG (4 mL) VIAL SLOW IVP SCH ×2 (06:02→15:36)
[2023-08-26] MEDS: Levothyroxine Sodium 100 MCG TAB PO SCH (06:03)
[2023-08-26] MEDS: Amiodarone 200 MG TAB PO SCH ×2 (08:35→20:34)
[2023-08-26] MEDS: Saccharomyces boulardii 250 MG CAP PO SCH (08:35)
[2023-08-26] MEDS: Sacubitril 24MG/Valsartan 26 MG TAB PO SCH ×2 (08:35→20:34)
[2023-08-26] MEDS: Aspirin 81 mg Enteric Coated Tablet PO SCH (08:35)
[2023-08-26] MEDS: Atorvastatin Calcium 20 MG TAB PO SCH (08:35)
[2023-08-26] MEDS: Empagliflozin 10 MG TAB PO SCH (08:35)
[2023-08-26] MEDS: Famotidine 20 MG TAB PO SCH (08:35)
[2023-08-26] MEDS: Apixaban 2.5 MG TAB PO SCH ×2 (08:35→20:34)
[2023-08-26] MEDS: Spironolactone 25 MG TAB PO SCH (08:45)
[2023-08-26] MEDS ORDERED: Potassium Chloride 20 MEQ TAB PO SCH (09:30)
[2023-08-26] MEDS ORDERED: Rifaximin 550 MG TAB PO SCH (15:45)
[2023-08-26] MEDS: Lactated Ringer's 1,000 ML IV SCH (15:55)
[2023-08-26 18:18] LABS: Bacteria/HPF None Seen HPF (None Seen); Bilirubin Negative (Negative); Blood, Urine Negative (Negative); CAUTI Indications for Culture Fever or rigors; Clarity Clear (Clear); Glucose, Urine (Dipstick) 300 mg/dL (Negative); Ketone, Urine Negative (Negative); Leukocyte Negative Leu/uL (Negative); Nitrite Negative (Negative); Protein, Urine (Dipstick) Negative (Neg-Trace); RBC/HPF None Seen HPF (0-3); Specific Gravity, Urine 1.008 (1.002-1.036); Squamous Epithelial 0-3 HPF (0-3); Urobilinogen Normal mg/dL (Less than 2); WBC/HPF 0-3 HPF (0-3)
[2023-08-26 18:20] LABS: Urine Culture Reflex No No
[2023-08-26] MEDS ORDERED: Rifaximin 200 MG TAB PO SCH (18:45)
[2023-08-26] MEDS: Rifaximin 200 MG TAB PO SCH (20:34)
[2023-08-27 04:57] LABS: #Basophils 0.1 thou/uL (0.0-0.2); #Eosinphils 0.4 thou/uL (0.0-0.7); #Monocytes 1.2 thou/uL (0.11-0.59); #Neutrophils 5.5 thou/uL (1.40-6.50); %Basophils 0.7 % (0.0-1.0); %Eosinophils 4.4 % (0.0-10.0); %Lymphocytes 15.6 % (21.0-51.0); %Monocytes 13.6 % (0.0-10.0); %Neutrophils 65.2 % (42.0-75.0); Hematocrit 38.1 % (36.0-47.0); Hemoglobin 12.3 g/dL (12.0-16.0); Mean Corpuscular HGB CONC 32.3 g/dL (32.0-36.0); Mean Corpuscular Hemoglobin 30.8 pg (27.0-31.0); Mean Corpuscular Volume 95.3 fl (78.0-98.0); Mean Platelet Volume 10.9 fL (7.4-10.4); Platelet Count 311 10x3/uL (130-400); RBC Distribution Width 15.2 % (11.5-14.5); White Blood Cell (WBC) Count 8.5 10x3/uL (4.8-10.8)
[2023-08-27 05:18] LABS: Anion Gap 14 mmol/L (10-20); BUN (Urea Nitrogen) 33 mg/dL (9.8-20.1); Calc. Creatinine Clearance 22 mL/min (70-130); Calcium 8.3 mg/dL (7.8-10.44); Carbon Dioxide 23 mmol/L (23-31); Chloride 106 mmol/L (98-107); Estimated GFR 29; Glucose 94 mg/dL (83-110); Magnesium 1.8 mg/dL (1.6-2.6); Potassium 3.1 mmol/L (3.5-5.1); Sodium 140 mmol/L (136-145)
[2023-08-27] MEDS: Levothyroxine Sodium 100 MCG TAB PO SCH (06:01)
[2023-08-27] MEDS: Lactated Ringer's 1,000 ML IV SCH (06:01)
[2023-08-27] MEDS: Furosemide 40 MG (4 mL) VIAL SLOW IVP SCH ×2 (06:01→13:41)
[2023-08-27] MEDS: Potassium Chloride 20 MEQ TAB PO SCH ×4 (06:16→14:05)
[2023-08-27] MEDS: Empagliflozin 10 MG TAB PO SCH (08:59)
[2023-08-27] MEDS: Amiodarone 200 MG TAB PO SCH ×2 (08:59→21:46)
[2023-08-27] MEDS: Aspirin 81 mg Enteric Coated Tablet PO SCH (08:59)
[2023-08-27] MEDS: Saccharomyces boulardii 250 MG CAP PO SCH (08:59)
[2023-08-27] MEDS: Sacubitril 24MG/Valsartan 26 MG TAB PO SCH ×2 (08:59→21:46)
[2023-08-27] MEDS: Spironolactone 25 MG TAB PO SCH (08:59)
[2023-08-27] MEDS: Apixaban 2.5 MG TAB PO SCH ×2 (08:59→21:46)
[2023-08-27] MEDS: Atorvastatin Calcium 20 MG TAB PO SCH (09:00)
[2023-08-27] MEDS: Rifaximin 200 MG TAB PO SCH ×3 (10:19→21:47)
[2023-08-27] MEDS: Loperamide HCl 2 MG CAP PO PRN (13:40)
[2023-08-27] MEDS: Temazepam 15 MG CAP PO PRN (21:46)
[2023-08-28 04:52] LABS: #Basophils 0.1 thou/uL (0.0-0.2); #Eosinphils 0.2 thou/uL (0.0-0.7); #Monocytes 1.7 thou/uL (0.11-0.59); #Neutrophils 8.1 thou/uL (1.40-6.50); %Basophils 0.5 % (0.0-1.0); %Eosinophils 1.5 % (0.0-10.0); %Lymphocytes 10.7 % (21.0-51.0); %Monocytes 14.8 % (0.0-10.0); %Neutrophils 72.1 % (42.0-75.0); Hemoglobin 12.5 g/dL (12.0-16.0); Mean Corpuscular HGB CONC 32.1 g/dL (32.0-36.0); Mean Corpuscular Volume 96.8 fl (78.0-98.0); Platelet Count 326 10x3/uL (130-400); RBC Distribution Width 15.5 % (11.5-14.5); Red Blood Cell (RBC) Count 4.03 mill/uL (4.20-5.40); White Blood Cell (WBC) Count 11.3 10x3/uL (4.8-10.8)
[2023-08-28 05:21] LABS: Albumin 3.4 g/dL (3.4-4.8); Anion Gap 15 mmol/L (10-20); BUN (Urea Nitrogen) 32 mg/dL (9.8-20.1); BUN/Creatinine Ratio 18.29; Calc. Creatinine Clearance 21 mL/min (70-130); Calcium 8.6 mg/dL (7.8-10.44); Carbon Dioxide 20 mmol/L (23-31); Chloride 106 mmol/L (98-107); Estimated GFR 28; Glucose 109 mg/dL (83-110); Magnesium 4.1 mg/dL (1.6-2.6); Phosphorus 2.2 mg/dL (2.3-4.7); Potassium 3.8 mmol/L (3.5-5.1); Sodium 137 mmol/L (136-145)
[2023-08-28] MEDS: Levothyroxine Sodium 100 MCG TAB PO SCH (05:36)
[2023-08-28] MEDS: Furosemide 40 MG (4 mL) VIAL SLOW IVP SCH (05:36)
[2023-08-28] MEDS: Amiodarone 200 MG TAB PO SCH ×2 (08:05→20:52)
[2023-08-28] MEDS: Spironolactone 25 MG TAB PO SCH (08:05)
[2023-08-28] MEDS: Saccharomyces boulardii 250 MG CAP PO SCH (08:05)
[2023-08-28] MEDS: Aspirin 81 mg Enteric Coated Tablet PO SCH (08:05)
[2023-08-28] MEDS: Famotidine 20 MG TAB PO SCH (08:05)
[2023-08-28] MEDS: Atorvastatin Calcium 20 MG TAB PO SCH (08:05)
[2023-08-28] MEDS: Rifaximin 200 MG TAB PO SCH ×3 (08:06→20:53)
[2023-08-28] MEDS: Apixaban 2.5 MG TAB PO SCH ×2 (08:06→20:52)
[2023-08-28] MEDS: Sacubitril 24MG/Valsartan 26 MG TAB PO SCH ×2 (08:06→20:53)
[2023-08-28] MEDS: Empagliflozin 10 MG TAB PO SCH (08:06)
[2023-08-28] MEDS: PHOS-NAK 1 PKT PACK PO SCH ×3 (08:06→20:53)
[2023-08-28] MEDS ORDERED: Digoxin 0.5 MG/2 ML AMP SLOW IVP SCH ×2 (10:00→11:00)
[2023-08-28] MEDS: Loperamide HCl 2 MG CAP PO PRN ×3 (10:35→17:36)
[2023-08-28] MEDS ORDERED: Digoxin 0.25 MG TAB PO SCH (14:00)
[2023-08-28] MEDS: Temazepam 15 MG CAP PO PRN (20:53)
[2023-08-29 04:51] LABS: #Basophils 0.1 thou/uL (0.0-0.2); #Eosinphils 0.3 thou/uL (0.0-0.7); #Monocytes 2.5 thou/uL (0.11-0.59); #Neutrophils 9.8 thou/uL (1.40-6.50); %Basophils 0.4 % (0.0-1.0); %Lymphocytes 8.2 % (21.0-51.0); %Monocytes 18.1 % (0.0-10.0); %Neutrophils 70.7 % (42.0-75.0); Hematocrit 37.8 % (36.0-47.0); Hemoglobin 12.2 g/dL (12.0-16.0); Mean Corpuscular HGB CONC 32.3 g/dL (32.0-36.0); Mean Corpuscular Hemoglobin 31.2 pg (27.0-31.0); Mean Corpuscular Volume 96.7 fl (78.0-98.0); Mean Platelet Volume 11.1 fL (7.4-10.4); Platelet Count 329 10x3/uL (130-400); RBC Distribution Width 15.2 % (11.5-14.5); Red Blood Cell (RBC) Count 3.91 mill/uL (4.20-5.40); White Blood Cell (WBC) Count 13.8 10x3/uL (4.8-10.8)
[2023-08-29 05:18] LABS: Chloride 102 mmol/L (98-107); Potassium 3.5 mmol/L (3.5-5.1); Sodium 138 mmol/L (136-145)
[2023-08-29 05:19] LABS: Calcium 8.3 mg/dL (7.8-10.44); Glucose 110 mg/dL (83-110)
[2023-08-29 05:21] LABS: Carbon Dioxide 24 mmol/L (23-31)
[2023-08-29 05:23] LABS: BUN (Urea Nitrogen) 31 mg/dL (9.8-20.1); Calc. Creatinine Clearance 21 mL/min (70-130); Estimated GFR 27
[2023-08-29 05:30] LABS: Anion Gap 16 mmol/L (10-20)
[2023-08-29] MEDS: Levothyroxine Sodium 100 MCG TAB PO SCH (06:32)
[2023-08-29] MEDS: Aspirin 81 mg Enteric Coated Tablet PO SCH (10:32)
[2023-08-29] MEDS: Saccharomyces boulardii 250 MG CAP PO SCH (10:32)
[2023-08-29] MEDS: Atorvastatin Calcium 20 MG TAB PO SCH (10:32)
[2023-08-29] MEDS: Digoxin 0.125 MG TAB PO SCH (10:33)
[2023-08-29] MEDS: Sacubitril 24MG/Valsartan 26 MG TAB PO SCH ×2 (10:33→21:04)
[2023-08-29] MEDS: PHOS-NAK 1 PKT PACK PO SCH ×3 (10:33→21:03)
[2023-08-29] MEDS: Spironolactone 25 MG TAB PO SCH (10:34)
[2023-08-29] MEDS: Apixaban 2.5 MG TAB PO SCH ×2 (10:34→21:03)
[2023-08-29] MEDS: Empagliflozin 10 MG TAB PO SCH (10:34)
[2023-08-29] MEDS: Loperamide HCl 2 MG CAP PO PRN ×4 (10:58→18:38)
[2023-08-29] MEDS: Amiodarone 200 MG TAB PO SCH (10:59)
[2023-08-29 11:11] LABS: Campy jejuni + coli by PCR Negative (Negative); STEC Shiga Toxin 1+2 Negative (Negative); Salmonella spp. by PCR Negative (Negative); Shigella spp + EIEC by PCR Negative (Negative)
[2023-08-29] MEDS ORDERED: Spironolactone 25 MG TAB PO SCH (11:15)
[2023-08-29] MEDS: Rifaximin 200 MG TAB PO SCH ×3 (11:27→21:03)
[2023-08-29 12:45] LABS: Phosphorus 3.3 mg/dL (2.3-4.7)
[2023-08-29] MEDS: Temazepam 15 MG CAP PO PRN (21:04)
[2023-08-30] MEDS: Acetaminophen 325 MG TAB PO PRN (04:00)
[2023-08-30 04:34] LABS: #Basophils 0.1 thou/uL (0.0-0.2); #Eosinphils 0.4 thou/uL (0.0-0.7); #Monocytes 1.8 thou/uL (0.11-0.59); #Neutrophils 7.1 thou/uL (1.40-6.50); %Basophils 0.5 % (0.0-1.0); %Eosinophils 3.9 % (0.0-10.0); %Lymphocytes 10.8 % (21.0-51.0); %Neutrophils 67.1 % (42.0-75.0); Hematocrit 39.1 % (36.0-47.0); Hemoglobin 12.8 g/dL (12.0-16.0); Mean Corpuscular HGB CONC 32.7 g/dL (32.0-36.0); Mean Corpuscular Hemoglobin 31.3 pg (27.0-31.0); Mean Corpuscular Volume 95.6 fl (78.0-98.0); Platelet Count 343 10x3/uL (130-400); RBC Distribution Width 14.7 % (11.5-14.5); Red Blood Cell (RBC) Count 4.09 mill/uL (4.20-5.40); White Blood Cell (WBC) Count 10.5 10x3/uL (4.8-10.8)
[2023-08-30 04:52] LABS: Anion Gap 14 mmol/L (10-20); BUN (Urea Nitrogen) 25 mg/dL (9.8-20.1); Calc. Creatinine Clearance 26 mL/min (70-130); Calcium 8.4 mg/dL (7.8-10.44); Carbon Dioxide 23 mmol/L (23-31); Chloride 104 mmol/L (98-107); Estimated GFR 37; Glucose 96 mg/dL (83-110); Potassium 3.7 mmol/L (3.5-5.1); Sodium 137 mmol/L (136-145)
[2023-08-30] MEDS ORDERED: Spironolactone 25 MG TAB PO SCH (09:00)
[2023-08-30] MEDS: Sacubitril 24MG/Valsartan 26 MG TAB PO SCH ×2 (09:45→20:58)
[2023-08-30] MEDS: Empagliflozin 10 MG TAB PO SCH (09:46)
[2023-08-30] MEDS: Digoxin 0.125 MG TAB PO SCH (09:46)
[2023-08-30] MEDS: Atorvastatin Calcium 20 MG TAB PO SCH (09:46)
[2023-08-30] MEDS: PHOS-NAK 1 PKT PACK PO SCH ×3 (09:46→20:58)
[2023-08-30] MEDS: Aspirin 81 mg Enteric Coated Tablet PO SCH (09:46)
[2023-08-30] MEDS: Saccharomyces boulardii 250 MG CAP PO SCH (09:46)
[2023-08-30] MEDS: Famotidine 20 MG TAB PO SCH (09:47)
[2023-08-30] MEDS: Apixaban 2.5 MG TAB PO SCH ×2 (09:47→20:58)
[2023-08-30 10:41] LABS: Reference Lab Name LABCORP
[2023-08-30] MEDS: Rifaximin 200 MG TAB PO SCH ×3 (10:48→20:57)
[2023-08-30] MEDS: Levothyroxine Sodium 100 MCG TAB PO SCH (11:02)
[2023-08-30] MEDS: Loperamide HCl 2 MG CAP PO PRN ×3 (11:20→20:58)
[2023-08-30] MEDS: Temazepam 15 MG CAP PO PRN (21:08)
[2023-08-31 04:45] LABS: #Basophils 0.1 thou/uL (0.0-0.2); #Eosinphils 0.4 thou/uL (0.0-0.7); #Monocytes 1.7 thou/uL (0.11-0.59); #Neutrophils 7.1 thou/uL (1.40-6.50); %Basophils 0.7 % (0.0-1.0); %Eosinophils 3.9 % (0.0-10.0); %Lymphocytes 9.8 % (21.0-51.0); %Monocytes 16.5 % (0.0-10.0); %Neutrophils 68.4 % (42.0-75.0); Hematocrit 39.1 % (36.0-47.0); Hemoglobin 12.5 g/dL (12.0-16.0); Mean Corpuscular Hemoglobin 31.1 pg (27.0-31.0); Mean Corpuscular Volume 97.3 fl (78.0-98.0); Mean Platelet Volume 10.8 fL (7.4-10.4); Platelet Count 378 10x3/uL (130-400); RBC Distribution Width 14.8 % (11.5-14.5); Red Blood Cell (RBC) Count 4.02 mill/uL (4.20-5.40); White Blood Cell (WBC) Count 10.4 10x3/uL (4.8-10.8)
[2023-08-31 05:05] LABS: Anion Gap 15 mmol/L (10-20); BUN (Urea Nitrogen) 21 mg/dL (9.8-20.1); Calc. Creatinine Clearance 25 mL/min (70-130); Calcium 8.1 mg/dL (7.8-10.44); Carbon Dioxide 21 mmol/L (23-31); Chloride 103 mmol/L (98-107); Estimated GFR 37; Glucose 94 mg/dL (83-110); Sodium 135 mmol/L (136-145)
[2023-08-31] MEDS: Levothyroxine Sodium 100 MCG TAB PO SCH (06:30)
[2023-08-31] MEDS ORDERED: Diphenoxylate HCl/Atropine Tablet PO SCH (08:15)
[2023-08-31] MEDS: Aspirin 81 mg Enteric Coated Tablet PO SCH (08:54)
[2023-08-31] MEDS: Digoxin 0.125 MG TAB PO SCH (08:55)
[2023-08-31] MEDS: Atorvastatin Calcium 20 MG TAB PO SCH (08:55)
[2023-08-31] MEDS: Sacubitril 24MG/Valsartan 26 MG TAB PO SCH ×2 (08:55→20:55)
[2023-08-31] MEDS: Empagliflozin 10 MG TAB PO SCH (08:55)
[2023-08-31] MEDS: Apixaban 2.5 MG TAB PO SCH ×2 (08:55→20:55)
[2023-08-31] MEDS: Spironolactone 25 MG TAB PO SCH (08:55)
[2023-08-31] MEDS: PHOS-NAK 1 PKT PACK PO SCH ×3 (08:55→20:56)
[2023-08-31] MEDS: Saccharomyces boulardii 250 MG CAP PO SCH (08:56)
[2023-08-31] MEDS: Rifaximin 200 MG TAB PO SCH ×3 (09:18→20:56)
[2023-08-31] MEDS ORDERED: Cholestyramine/Aspartame 4 gm Packet PO SCH (10:00)
[2023-08-31] MEDS: Loperamide HCl 2 MG CAP PO PRN (17:15)
[2023-08-31] MEDS: Diphenoxylate HCl/Atropine Tablet PO PRN (20:55)
[2023-08-31] MEDS: Temazepam 15 MG CAP PO PRN (21:21)
[2023-08-31] MEDS: Acetaminophen 325 MG TAB PO PRN (21:53)
[2023-09-01] MEDS: Levothyroxine Sodium 100 MCG TAB PO SCH (06:21)
[2023-09-01 06:23] VITALS: TEMP 97.4
[2023-09-01 07:27] LABS: #Basophils 0.1 thou/uL (0.0-0.2); #Eosinphils 0.4 thou/uL (0.0-0.7); #Monocytes 1.4 thou/uL (0.11-0.59); #Neutrophils 4.8 thou/uL (1.40-6.50); %Eosinophils 5.1 % (0.0-10.0); %Lymphocytes 14.6 % (21.0-51.0); %Neutrophils 60.7 % (42.0-75.0); Mean Platelet Volume 10.5 fL (7.4-10.4); Platelet Count 379 10x3/uL (130-400); White Blood Cell (WBC) Count 7.9 10x3/uL (4.8-10.8)
[2023-09-01 07:50] LABS: Anion Gap 14 mmol/L (10-20); BUN (Urea Nitrogen) 19 mg/dL (9.8-20.1); Calc. Creatinine Clearance 26 mL/min (70-130); Calcium 8.4 mg/dL (7.8-10.44); Carbon Dioxide 23 mmol/L (23-31); Chloride 107 mmol/L (98-107); Estimated GFR 38; Glucose 83 mg/dL (83-110); Potassium 4.4 mmol/L (3.5-5.1); Sodium 140 mmol/L (136-145)
[2023-09-01] MEDS: Apixaban 2.5 MG TAB PO SCH (09:04)
[2023-09-01] MEDS: Digoxin 0.125 MG TAB PO SCH (09:04)
[2023-09-01] MEDS: Aspirin 81 mg Enteric Coated Tablet PO SCH (09:04)
[2023-09-01] MEDS: Atorvastatin Calcium 20 MG TAB PO SCH (09:04)
[2023-09-01] MEDS: Empagliflozin 10 MG TAB PO SCH (09:04)
[2023-09-01] MEDS: Famotidine 20 MG TAB PO SCH (09:05)
[2023-09-01] MEDS: Saccharomyces boulardii 250 MG CAP PO SCH (09:05)
[2023-09-01] MEDS: Spironolactone 25 MG TAB PO SCH (09:05)
[2023-09-01] MEDS: Rifaximin 200 MG TAB PO SCH ×3 (09:05→15:27)
[2023-09-01] MEDS: Sacubitril 24MG/Valsartan 26 MG TAB PO SCH (09:05)
[2023-09-01] MEDS: PHOS-NAK 1 PKT PACK PO SCH ×2 (09:05→15:09)
[2023-09-01 11:46] VITALS: BP 150/91
[2023-09-01] MEDS: Loperamide HCl 2 MG CAP PO PRN (11:48)
[2023-09-01] MEDS: Diphenoxylate HCl/Atropine Tablet PO PRN (15:28)
== END 2023-09-01 16:44 | disposition home or self-care (01) | DRG 280 ==
LOC: ERS 21:31 → 2NO 23:27 → T4-B 08-31 11:34
PROVIDERS: ADMIT Internal Medicine; ATTEND Hospitalist
DX: I13.0 Hypertensive heart and chronic kidney disease with heart failure and stage 1 through stage 4 chronic kidney disease, or unspecified chronic kidney disease (principal); I50.43 Acute on chronic combined systolic (congestive) and diastolic (congestive) heart failure; I21.A1 Myocardial infarction type 2; C78.7 Secondary malignant neoplasm of liver and intrahepatic bile duct; N18.4 Chronic kidney disease, stage 4 (severe); C7A.8 Other malignant neuroendocrine tumors; E87.20 Acidosis, unspecified; E87.21 Acute metabolic acidosis; N17.9 Acute kidney failure, unspecified; I48.21 Permanent atrial fibrillation; E78.5 Hyperlipidemia, unspecified; E03.9 Hypothyroidism, unspecified; Z66 Do not resuscitate; T38.995A Adverse effect of other hormone antagonists, initial encounter; E87.6 Hypokalemia; I48.0 Paroxysmal atrial fibrillation; K52.9 Noninfective gastroenteritis and colitis, unspecified; D63.1 Anemia in chronic kidney disease; E83.39 Other disorders of phosphorus metabolism; Z98.890 Other specified postprocedural states; Z79.899 Other long term (current) drug therapy; Z79.01 Long term (current) use of anticoagulants; Z88.5 Allergy status to narcotic agent; Z88.8 Allergy status to other drugs, medicaments and biological substances; Z79.890 Hormone replacement therapy; Z79.82 Long term (current) use of aspirin; Z90.12 Acquired absence of left breast and nipple; Z82.49 Family history of ischemic heart disease and other diseases of the circulatory system
CPT/HCPCS: 36415; 71045; 74176; 80048; 80053; 80069; 81001; 83630; 83735; 83880; 84100; 84439; 84443; 84484; 85025; 86316; 87324; 87449; 87505; 93005; 96374; J1160; J1940; J7120